=== PATIENT | female | born 1960 | race Caucasian/White ===

== ENCOUNTER 2017-05-31 14:49 | Inpatient (IN) ==
--- NOTE | 2017-05-31 15:41 | Emergency Department Note ---
Disposition Clinical Impression: Headache Qualifiers: Headache type: unspecified Headache chronicity pattern: unspecified pattern Intractability: not intractable Qualified Code(s): R51 - Headache TIA (transient ischemic attack) Qualifiers: Transient cerebral ischemia type: unspecified Qualified Code(s): G45.9 - Transient cerebral ischemic attack, unspecified Hypertension Qualifiers: Hypertension type: essential hypertension Qualified Code(s): I10 - Essential ( primary) hypertension Disposition: Admitted As Inpatient Condition: Fair Referrals: Murray Trevino MD [Family Provider] - NONE,PCP [Primary Care Provider] - Forms: ED Satisfaction Letter Time of Disposition: 17:10 Headache HPI - General Chief Complaint: ED Headache Stated Complaint: slurred speech/BECK Time Seen by Provider: 05/31/17 15:25 Source: patient Mode of arrival: wheelchair Limitations: no limitations Nursing Notes Reviewed: Yes Vital Signs Reviewed: Yes - History of Present Illness HPI Narrative: 57-year-old who states she wasn't feeling well this morning had some nausea. states she developed difficulty speaking and also had initially left upper extremity weakness which improved and then she had right upper extremity weakness. Right in the patient was getting in a car that went under the trees in the l sunlight had a strobe light effect and he gave her a migraine headache which she has had in the past. On arrival here her symptoms have improved. 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 Constitutional: Denies: fever, chills, weakness, weight change Eyes: Denies: eye pain, eye discharge, vision change ENT ED: Denies: ear pain, throat pain, dental pain, hearing loss, epistaxis, congestion, dysphagia Cardiovascular: Denies: chest pain, palpitations, dyspnea on exertion, edema, syncope Respiratory: Denies: cough, dyspnea, wheezes, hemoptysis, stridor Gastrointestinal: Denies: abdominal pain, nausea, vomiting, diarrhea, constipation, hematemesis, melena, hematochezia Genitourinary: Denies: dysuria, frequency, hematuria, discharge Musculoskeletal: Denies: back pain, neck pain, arthralgia, myalgia Integumentary: Denies: rash, abrasion, lesions Neurological: Reports: headache, weakness (Has improved), other (Slurred speech which has improved). Denies: numbness, paresthesias, confusion, abnormal gait, vertigo Psychiatric: Denies: anxiety, depression, suicidal thoughts, homicidal thoughts , auditory hallucinations, visual hallucinations Endocrine: Denies: fatigue Hematological/Lymphatic: Denies: easy bleeding, easy bruising Allergic/Immunologic: Denies: facial swelling, urticaria Headache PMH - Past Medical History Medical history: Reports: diabetes, hyperlipidemia, hypertension Psychiatric history: Reports: no psych history - Social History Smoking Status: Current every day smoker Alcohol use: Reports: rarely Drug use: Reports: none Physical Exam - General Limitations: no limitations General appearance: alert - Head Head exam: atraumatic, normocephalic, normal inspection - Eye Eye exam: Present: normal appearance, PERRL, EOMI - ENT ENT exam: normal exam, normal oropharynx, mucous membranes moist - Neck Neck exam: Present: normal inspection, full ROM, trachea midline - Chest Chest inspection: Present: normal inspection, symmetric chest wall rise - Respiratory Respiratory exam: Present: normal lung sounds bilaterally - Cardiovascular Cardiovascular exam: Present: regular rate, normal rhythm, normal heart sounds - Abdominal Exam Abdominal exam: Present: soft, Non-Tender. Absent: tenderness, distention, guarding, rebound, rigidity - Extremities Exam Extremities exam: Present: normal inspection, full ROM. Absent: tenderness, pedal edema - Expanded Lower Extremity Exam Neurovascular/Tendon exam: Absent: motor deficit, sensory deficit, tendon deficit Gait: observed and normal - Back Exam Back exam: Present: normal inspection, full ROM. Absent: tenderness - Neurological Exam Neurological exam: Present: alert, oriented X3 - Psychiatric Psychiatric exam: Present: normal affect, normal mood - Skin Skin exam: Present: warm, dry, intact, normal color Course - Reevaluation(s) Reevaluation #1: 57-year-old with a history of hypertension who developed slurred speech and arm weakness this morning which has resolved. Also complained of a headache. She was noted to have a diastolic initially 132 repeat was 125. Time: 17:07 - Consultations Consultation #1: Discussed with , we will shoot for blood pressure 160/100. Mental hospitalist. Time: 17:23 Consultation #2: Discussed with Dr. Padilla, admit. Time: 17:25 Vital Signs Temperature 97.4 F L 05/31/17 14:52 Pulse Rate 101 05/31/17 14:52 Respiratory Rate 22 05/31/17 14:52 Blood Pressure 190/125 05/31/17 14:52 O2 Sat by Pulse Oximetry 96 05/31/17 14:52 Temperature 97.4 F L 05/31/17 14:52 Pulse Rate 112 05/31/17 17:12 Respiratory Rate 20 05/31/17 17:12 Blood Pressure 196/105 05/31/17 17:12 O2 Sat by Pulse Oximetry 96 05/31/17 17:12 Oxygen Delivery Oxygen Delivery Room Air Headache - Lab Data Lab results reviewed: Yes I reviewed the patient's lab results. Result diagrams: 05/31/17 15:50 05/31/17 15:50 Lab Results 05/31/17 05/31/17 05/31/17 Range/Units 15:50 15:50 15:50 WBC 9.2 (4.3-11.1) K/mcL RBC 5.59 H (3.82-4.97) M/mcL Hgb 15.4 (11.5-15.4) g/dL Hct 43.8 (35.3-44.9) % MCV 78.4 L (83.0-100.0) fL MCH 27.5 L (28.0-33.3) pg MCHC 35.2 (31.6-35.5) g/dL RDW 13.1 (11.5-14.5) % Plt Count 207 (140-400) K/mcL MPV 10.2 (9.4-12.4) fL Immature Gran % 0.5 (0-4) % Seg Neutrophils % 79.5 % Lymphocytes % 13.1 % Monocytes % 4.6 % Eosinophils % 1.4 % Basophils % 0.9 % Neutrophils # 7.3 (1.6-8.9) K/mcL Lymphocytes # 1.2 (0.6-4.6) K/mcL Monocytes # 0.4 (0.0-1.3) K/mcL Eosinophils # 0.1 (0.0-0.6) K/mcL Basophils # 0.1 (0.0-0.2) K/mcL PT 10.9 (9.4-12.1) Seconds INR 1.0 APTT 29.6 (26.0-36.0) Seconds Sodium 135 L (136-145) mEq/L Potassium 3.6 (3.5-4.5) mEq/L Chloride 100 (98-109) mEq/L Carbon Dioxide 24 (19-29) mEq/L BUN 8 (7-20) mg/dL Creatinine 0.84 (0.57-1.11) mg/dL Est GFR ( Amer) > 60 (> 60) Est GFR (Non-Af Amer) > 60 (> 60) BUN/Creatinine Ratio 10 (6-26) Glucose 350 H (70-99) mg/dL Calculated Osmolality 292 (280-300) Calcium 10.0 (8.6-10.8) mg/dL Troponin I (0-0.03) ng/mL 05/31/17 Range/Units 15:50 WBC (4.3-11.1) K/mcL RBC (3.82-4.97) M/mcL Hgb (11.5-15.4) g/dL Hct (35.3-44.9) % MCV (83.0-100.0) fL MCH (28.0-33.3) pg MCHC (31.6-35.5) g/dL RDW (11.5-14.5) % Plt Count (140-400) K/mcL MPV (9.4-12.4) fL Immature Gran % (0-4) % Seg Neutrophils % % Lymphocytes % % Monocytes % % Eosinophils % % Basophils % % Neutrophils # (1.6-8.9) K/mcL Lymphocytes # (0.6-4.6) K/mcL Monocytes # (0.0-1.3) K/mcL Eosinophils # (0.0-0.6) K/mcL Basophils # (0.0-0.2) K/mcL PT (9.4-12.1) Seconds INR APTT (26.0-36.0) Seconds Sodium (136-145) mEq/L Potassium (3.5-4.5) mEq/L Chloride (98-109) mEq/L Carbon Dioxide (19-29) mEq/L BUN (7-20) mg/dL Creatinine (0.57-1.11) mg/dL Est GFR ( Amer) (> 60) Est GFR (Non-Af Amer) (> 60) BUN/Creatinine Ratio (6-26) Glucose (70-99) mg/dL Calculated Osmolality (280-300) Calcium (8.6-10.8) mg/dL Troponin I 0.01 (0-0.03) ng/mL - Radiology Data Radiology results reviewed: Yes I reviewed the patient's radiology results. Head CT 05/31/17 15:38 IMPRESSION: No acute intracranial abnormality. Diffuse atrophic changes with findings suggesting chronic microvascular ischemia D/ / Jesus Hamm MD / Jesus Hamm MD Interpreting Provider: Jesus Hamm MD - EKG Data EKG attestation: Yes I reviewed and interpreted this EKG. EKG shows normal: sinus rhythm Rate: normal Rhythm: NSR Interpretation: no acute changes Critical Care Time Critical Care Time: Yes Total Critical Care Time: 30 Attestation: The high probability of a clinically significant, sudden or life threatening deterioration of the [neurological, cardiovascular] system(s) required my full and direct attention, intervention and personal management. The aggregate critical care time was [30] minutes. This time is in addition to time spent performing reported procedures but includes the following: [x] Data Review and interpretation [x] Patient assessment and monitoring of vital signs [x] Documentation [x] Medication orders and management NIH Stroke Scale - Level of Consciousness LOC: Alert - LOC Questions LOC Questions: Answers both correctly - LOC Commands LOC Commands: Performs both correctly - Best Gaze Best Gaze: Normal - Visual Visual: No visual loss - Facial Palsy Facial Palsy: Normal - Motor Arms Motor Arm-Left: No drift for 10 seconds Motor Arm-Right: No drift for 10 seconds - Motor Legs Motor Leg-Left: No drift for 5 seconds Motor Leg-Right: No drift for 5 seconds - Limb Ataxia Limb Ataxia: Normal, No Ataxia - Sensory Sensory: Normal - Best Language Best Language: No aphasia - Dysarthria Dysarthria: Normal - Extinction and Inattention Extinction and Inattention: Normal - NIHSS Total Score NIHSS Total Score: 0
[2017-05-31 16:07] LABS: Basophils # 0.1 K/mcL (0.0-0.2); Basophils % 0.9 %; Eosinophils # 0.1 K/mcL (0.0-0.6); Eosinophils % 1.4 %; Hematocrit 43.8 % (35.3-44.9); Hemoglobin 15.4 g/dL (11.5-15.4); Immature Granulocytes % 0.5 % (0-4); Lymphocytes # 1.2 K/mcL (0.6-4.6); Lymphocytes % 13.1 %; Mean Corpuscular HGB Conc 35.2 g/dL (31.6-35.5); Mean Corpuscular Hemoglobin 27.5 pg (28.0-33.3); Mean Corpuscular Volume 78.4 fL (83.0-100.0); Mean Platelet Volume 10.2 fL (9.4-12.4); Monocytes # 0.4 K/mcL (0.0-1.3); Monocytes % 4.6 %; Neutrophils # 7.3 K/mcL (1.6-8.9); Platelet Count 207 K/mcL (140-400); Red Blood Count 5.59 M/mcL (3.82-4.97); Red Cell Distribution Width 13.1 % (11.5-14.5); Segmented Neutrophils % 79.5 %
[2017-05-31 16:12] LABS: Prothrombin Time 10.9 Seconds (9.4-12.1)
[2017-05-31 16:15] LABS: Activated Partial Thrombo Time 29.6 Seconds (26.0-36.0)
[2017-05-31 16:19] LABS: BUN/Creatinine Ratio 10 (6-26); Blood Urea Nitrogen 8 mg/dL (7-20); Carbon Dioxide 24 mEq/L (19-29); Chloride 100 mEq/L (98-109); Glucose 350 mg/dL (70-99); Osmolality,Calculated 292 (280-300); Potassium 3.6 mEq/L (3.5-4.5); Sodium 135 mEq/L (136-145); eGFR For African Americans > 60 (> 60); eGFR For Non-African Americans > 60 (> 60)
[2017-05-31] MEDS ORDERED: niCARdipine 40 MG/200 ML MLS IVC SCH ×2 (16:30→19:55)
[2017-05-31] MEDS ORDERED: Aspirin 81 MG TAB.CHEW PO STA (17:17)
[2017-05-31] MEDS ORDERED: Ondansetron 4 MG/2 ML VIAL IVP ONE (17:17)
[2017-05-31] MEDS ORDERED: Naloxone 0.4 MG/ML INJ IVP PRN (18:15)
[2017-05-31] MEDS ORDERED: Loratadine 10 MG TABLET PO PRN (18:18)
[2017-05-31] MEDS ORDERED: Dextrose Gel 15 GM PO PRN ×2 (19:53)
[2017-05-31] MEDS ORDERED: *HR* Dextrose 50 % in Water (Syg) 50 ML SYRINGE IVP PRN (19:53)
[2017-05-31] MEDS ORDERED: D5% in Water 1,000 ML IVC PRN (19:53)
[2017-05-31] MEDS ORDERED: amLODIPine 5 MG TABLET PO SCH (20:00)
--- NOTE | 2017-05-31 20:15 | Internal Med History&Physical ---
<Bc Butler - Last Filed: 05/31/17 23:47> Date of Encounter: 05/31/17 Time of Encounter: 20:10 Assessment and Plan (1) TIA (transient ischemic attack) Current visit: Yes Status: Acute I am admitting this patient for further observation due to hypertensive emergency, bilateral upper extremity weaknessSlurred speech and headache. No prior history of CVA or TIA. However due to her risk factors. Which include smoking, DM, HLD, HTN she needs further evaluation.The patient mental status remains slightly altered, she will not dissipate in the examination however she is oriented 3 Response to verbal stimulus. Differential diagnosis include TIA , CVA, hypertensive encephalopathy, complicated migraines. Symptoms are gradually improving, no longer has slurred speech, denies numbness and tingling , continues to be hypertensive But is improving with Cardene drip. Symptoms also improving with blood pressure control. Neurology consult with recommendations to continue to rule out CVA versus TIA. Additional recommendations include continuing SBP less than 160 MRI head and brain without contrast in the morning Carotid Dopplers, echocardiogram, neuro checks per protocol, NIHSS now ABG now due altered mental status Urinalysis now and urine tox screen now Continuous telemetry, continuous O2 monitoring Lipid panel in the morning, CBC, CMP in the morning Qualifiers: Transient cerebral ischemia type: unspecified Qualified Code(s): G45.9 - Transient cerebral ischemic attack, unspecified (2) Hypertensive emergency without congestive heart failure Current visit: Yes Status: Acute Has a history of hypertension. Not on any antihypertensives at home. Patient was admitted with hypertensive emergency. Systolic blood pressures initially greater than 200 on arrival. Cardiac injury was started in the emergency department. As of this time blood pressure is improved with systolic blood pressures of 150s. With the AMS, it is my suspicion that the patient may have had hypertensive encephalopathy however we will continue to rule out TIA and CVA. discontinue Cardene drip as the patient's blood pressure is improving Start Norvasc 5 mg by mouth first dose now then daily (3) Headache Current visit: Yes Status: Acute Continues to have a headache, but is improving with blood pressure control. See plan above Qualifiers: Headache type: unspecified Headache chronicity pattern: unspecified pattern Intractability: not intractable Qualified Code(s): R51 - Headache (4) Diabetes Current visit: Yes Status: Acute Patient is a type II diabetic. Reports that she is not on any insulin or oral hypoglycemic agents and is well-controlled with diet. However today's metabolic panel reveals a blood glucose of 350. 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 Rodriguez is a 57 year old female with a PMH of DM, HLD, HTN. She presents today with a chief complaint of left upper cavity weakness, slurred speech and headache. Denies having any prior strokes. The patient reports that she was not feeling well this morning, she had some nausea. She reported that she was out running errands and she was getting out of the car sunlight through the trees had a strobe light effect and gave her a migraine headache. She reports past history of migraines. reports that she began feeling nauseous and requested to go home. Once she arrived to the house, while still on the car, in the car she was noted to have slurred speech BUE numbness and tingling. When she attempted to get a car she began to puke and fell down. Symptoms began to gradually improve by the time of arrival to the emergency department. There is some concern for a TIA, neurology was consulted with recommendations of keeping blood pressure less than 160 and further rule out TIA. CT of head negative for acute intracranial abnormalities Past Med Surg Social Fam HX - Past Medical History Medical history: diabetes, hyperlipidemia, hypertension Psychiatric history: no psych history - Social History Smoking Status: Current every day smoker Smokeless Tobacco Status: No Alcohol use: rarely Drug use: none - Family History Mother Hx Family Endocrine Disorder: Yes (Diabetes) Internal Medicine - H&P: Meds Cyanocobalamin (Vitamin B-12) [Vitamin B-12] 500 mcg PO DAILY 05/31/17 [History] Ibuprofen [Motrin] 400 mg PO Q6H PRN 05/31/17 [History] Loratadine [Allergy Relief] 10 mg PO DAILY PRN 05/31/17 [History] Magnesium Oxide [Magnesium] 400 mg PO DAILY 05/31/17 [History] Potassium 99 mg PO TID PRN 05/31/17 [History] 3 Allergy/AdvReac Type Severity Reaction Status Date / Time Penicillins [PCN] Allergy Vomiting Verified 05/31/17 16:38 Tetracycline Allergy Vomiting Verified 05/31/17 16:38 tramadol AdvReac Headache Verified 05/31/17 16:38 All Systems PM: A 10-system review of systems was performed and is negative for pertinent findings except as documented above in the HPI. - Constitutional Constitutional: fatigue, falls, weakness, no chills, no excessive sweating, no fever(s) - Cardiovascular Cardiovascular ROS IM: no chest pain, no diaphoresis, no dyspnea, no edema, no lightheadedness, no palpitations, no syncope - Respiratory Respiratory: no cough, no dyspnea, no wheezing, no excessive phlegm production - Gastrointestinal Gastrointestinal: no abdominal pain, no diarrhea, no hematemesis, no hematochezia, no melena, no nausea, no vomiting - Genitourinary Genitourinary: no change in urinary stream, no dysuria, no flank pain, no hematuria - Musculoskeletal Musculoskeletal ROS IM: numbness (Has subsided since arrival), tingling (Has subsided since arrival), no muscle weakness - Integumentary Integumentary IM: no rash, no unusual bruising - Neurological Neurological ROS: abnormal speech (Has subsided since arrival), headache(s), numbness, tingling, weakness, no confusion, no dizziness, no focal weakness, no frequent falls - Constitutional Vitals: Temp Pulse Resp BP Pulse Ox 97.4 F L 108 18 156/92 98 05/31/17 14:52 05/31/17 17:35 05/31/17 17:35 05/31/17 17:35 05/31/17 17:35 General appearance: Present: A&O X 3, no acute distress, answers questions appropriately Exam: Patient appears to be lethargic, alert and oriented 3 able to answer questions appropriately. However, will not cooperate with examination. - Head Head exam: Present: atraumatic, normocephalic - Eye Eye exam: Present: EOMI, PERRL, conjuntiva pink, sclera anicteric Pupils: Present: PERRL - Neck Neck exam general surgery: Present: supple, trachea midline. Absent: lymphadenopathy - Respiratory Respiratory exam: Present: decreased breath sounds, CTAB, tachypnea. Absent: accessory muscle use, rales, respiratory distress, rhonchi, wheezes - Cardiovascular Cardiovascular exam: Present: RRR, +S1, +S2, tachycardia. Absent: diastolic murmur, gallop, JVD, rubs, systolic murmur - GI/Abdominal GI/Abdominal exam: Present: normal bowel sounds, soft, no peritoneal signs. Absent: distended, tenderness - Extremities Exam Extremities exam: Present: warm, radial pulses palpable and symmetrical. Absent : calf tenderness, cyanotic, pedal edema - Neurological Exam Neurological exam: Present: alert, oriented X3. Absent: no focal deficits, facial droop, speech deficit Additional comments: Would not cooperate with neurological exam; was able to witness the patient uses bilateral upper and lower extremities, did not appear to have focal deficits. - Psychiatric Psychiatric exam: Present: flat affect - Skin Skin exam: Present: dry, intact Internal Med - H&P Results - Labs CBC & Chem 7: 05/31/17 15:50 05/31/17 15:50 - EKG Data -: EKG Interpreted by Myself EKG shows normal: sinus rhythm Rate: normal - EKG Data EKG comments: 05/31/17 20:21 NSR - Diagnostic Studies Chest x-ray Status: image reviewed by me Additional comments: Mild bibasilar atelectasis noted to pulmonary process CT scan - head Status: image reviewed by me Additional comments: No acute intracranial abnormalities <Richard Cherry - Last Filed: 06/01/17 01:18> Date of Encounter: 06/01/17 Internal Medicine - H&P: HPI History of present illness: Ms. Rodriguez is a 57 year old female All Systems PM: A 10-system review of systems was performed and is negative for pertinent findings except as documented above in the HPI. - Constitutional Vitals: Temp Pulse Resp BP Pulse Ox 99.7 F H 124 22 137/88 96 06/01/17 00:57 05/31/17 23:54 05/31/17 23:54 05/31/17 23:54 05/31/17 23:54 Internal Med - H&P Results - Labs CBC & Chem 7: 06/01/17 00:45 05/31/17 15:50 Labs: Short CBC 06/01/17 Range/Units 00:45 WBC 14.9 H D (4.3-11.1) K/mcL Hgb 15.2 (11.5-15.4) g/dL Hct 43.4 (35.3-44.9) % Plt Count 254 (140-400) K/mcL Neutrophils # 13.5 H (1.6-8.9) K/mcL Cardiac Enzymes 05/31/17 Range/Units 22:13 Troponin I 0.01 (0-0.03) ng/mL - ABG Interpretation ABG results: 05/31/17 22:09 ABG pH 7.45 ABG pCO2 32 L ABG pO2 65 L ABG HCO3 22 ABG Total CO2 23 ABG O2 Saturation 94 L ABG Base Excess -1 - Attending Attestation I saw and examined this patient with DAXA Yancey on 05/31. HTN emergency with acute encephalopathy, gait instability, confusion Uncooperative with neuro exam but pupils are equal and reactive, speech is normal, moves all extremities, very ataxic Fall precautions/Brain MRI/Neuro eval, control blood pressure Agree with rest of documentation by DAXA Yancey
[2017-05-31] MEDS ORDERED: Insulin LISPRO 300 UNITS/3 ML VIAL SQ SCH (21:00)
[2017-05-31] MEDS ORDERED: *HR* Promethazine 25 MG/ML VIAL IVP ONE (21:46)
[2017-05-31] MEDS ORDERED: Acetaminophen 325 MG TABLET PO PRN (21:47)
[2017-05-31 22:14] LABS: ABG Base Excess -1 mEq/L (-2 to 3); ABG HCO3 22 mEq/L (21-27); ABG Oxygen Saturation 94 % (95-98); ABG PCO2 32 mmHg (35-45); ABG PH 7.45 pH Units (7.32-7.45); ABG PO2 65 mmHg (85-104); ABG TCO2 23 mEq/L (20-26)
[2017-05-31] MEDS: 0.9 % Sodium Chloride 1,000 ML IVC SCH (22:15)
[2017-05-31] MEDS: amLODIPine 5 MG TABLET PO SCH (22:15)
[2017-06-01 01:02] LABS: Basophils # 0.1 K/mcL (0.0-0.2); Basophils % 0.4 %; Eosinophils % 0.1 %; Hematocrit 43.4 % (35.3-44.9); Hemoglobin 15.2 g/dL (11.5-15.4); Immature Granulocytes % 0.7 % (0-4); Immature Platelets 3.9 % (1.1-6.1); Lymphocytes # 0.9 K/mcL (0.6-4.6); Lymphocytes % 6.2 %; Mean Corpuscular Hemoglobin 27.4 pg (28.0-33.3); Mean Corpuscular Volume 78.2 fL (83.0-100.0); Mean Platelet Volume 10.3 fL (9.4-12.4); Monocytes # 0.3 K/mcL (0.0-1.3); Monocytes % 1.9 %; Neutrophils # 13.5 K/mcL (1.6-8.9); Platelet Count 254 K/mcL (140-400); Red Blood Count 5.55 M/mcL (3.82-4.97); Red Cell Distribution Width 13.1 % (11.5-14.5); Segmented Neutrophils % 90.7 %
[2017-06-01 01:22] LABS: Alanine Aminotransferase 22 Units/L (0-55); Albumin/Globulin Ratio 1.3 (1.1-2.2); Alkaline Phosphatase 145 Units/L (38-126); Aspartate Amino Transferase 17 Units/L (5-34); BUN/Creatinine Ratio 9 (6-26); Bilirubin,Total 0.8 mg/dL (0.2-1.2); Blood Urea Nitrogen 9 mg/dL (7-20); Calcium 9.7 mg/dL (8.6-10.8); Carbon Dioxide 20 mEq/L (19-29); Chloride 101 mEq/L (98-109); Cholesterol 226 mg/dL (< 200); Globulin 3.1 g/dL (2.4-3.5); Glucose 461 mg/dL (70-99); HDL Cholesterol 45 mg/dL (40-59); LDL Cholesterol,Calculated 160 mg/dL (0-99); Osmolality,Calculated 303 (280-300); Potassium 3.7 mEq/L (3.5-4.5); Sodium 137 mEq/L (136-145); Total Protein 7.1 g/dL (6.0-8.3); Triglycerides 105 mg/dL (< 150); eGFR For African Americans > 60 (> 60); eGFR For Non-African Americans 56 (> 60)
[2017-06-01 02:31] LABS: Amphetamine Screen,Urine Negative ng/mL (Cutoff=1000); Barbiturate Screen,Urine Negative ng/mL (Cutoff=200); Benzodiazepines Screen,Urine Negative ng/mL (Cutoff=200); Cannabinoid Screen,Urine Negative ng/mL (Cutoff = 50); Cocaine Screen,Urine Negative ng/mL (Cutoff= 300); Opiate Screen,Urine Negative ng/mL (Cutoff=300); Phencyclidine Screen,Urine Negative ng/mL (Cutoff=25)
[2017-06-01 02:34] LABS: Bilirubin,Urine Negative (Negative); Blood,Urine Small (Negative); Clarity,Urine Clear (Clear); Color,Urine Yellow (Yellow); Glucose,Urine (UA) >=1000 mg/dL (Normal); Ketones,Urine 80 mg/dL (Negative); Leukocyte Esterase,Urine Negative (Negative); Nitrite,Urine Negative (Negative); Protein,Urine 30 mg/dL (Neg-Trace); Specific Gravity,Urine 1.027 (1.010-1.025); Urobilinogen,Urine Normal (Normal)
[2017-06-01 02:36] LABS: Bacteria,Urine Many per hpf (None-Few); Hyaline Casts,Urine None Seen per lpf (None-Few); Squamous Epithelial Cell,Urine Few per lpf (None-Few)
[2017-06-01] MEDS ORDERED: niCARdipine 40 MG/200 ML MLS IVC ONE (03:37)
[2017-06-01] MEDS: niCARdipine 40 MG/200 ML MLS IVC SCH ×2 (03:41→11:35)
[2017-06-01] MEDS ORDERED: Insulin Human Regular 10 UNIT in 0.9 % Sodium Chloride 10 ML IV ONE (04:52)
[2017-06-01] MEDS ORDERED: Insulin Human Regular 100 UNIT in 0.9 % Sodium Chloride 100 ML IVC SCH ×2 (05:00→11:15)
[2017-06-01 05:39] LABS: Hemoglobin A1C 11.2 %
[2017-06-01] MEDS ORDERED: 0.9 % Sodium Chloride w KCl 20 MEQ/1,000 ML MLS IVC SCH (05:45)
[2017-06-01] MEDS ORDERED: Vancomycin 1,750 MG in D5% in Water 250 ML IVPB SCH (06:00)
[2017-06-01] MEDS: Vancomycin 1,500 MG in D5% in Water 250 ML IVPB SCH ×2 (06:16→19:35)
[2017-06-01] MEDS: cefTRIAXone 2,000 MG in Water for inj. (sterile) 20 ML IVP SCH ×2 (06:17→17:38)
[2017-06-01] MEDS: *HR* Enoxaparin 40 MG/0.4 ML SYRINGE SQ SCH (06:38)
[2017-06-01] MEDS ORDERED: Insulin LISPRO 300 UNITS/3 ML VIAL SQ SCH (07:30)
[2017-06-01] MEDS: Acyclovir 600 MG in D5% in Water 100 ML IVPB SCH ×2 (08:51→18:33)
--- NOTE | 2017-06-01 08:56 | Internal Med Progress Note ---
<Oral Ordoñez - Last Filed: 06/01/17 13:30> Date of Encounter: 06/01/17 Time of Encounter: 08:56 - Assessment and plan (1) Altered mental status Current Visit: Yes Status: Acute Assessment and plan: 57-year-old female admitted with altered mental status. Initially concern for TIA versus stroke, CT of the brain demonstrates diffuse atrophy but no findings of acute ischemia or hemorrhagic stroke. Urine drug screen negative, Tylenol level negative, TSH 0.279. WBC count 14.9, patient tachycardic, increased respiratory rate, altered mental status - Current source unknown, concern for meningitis Patient seen by neurology, recommended lumbar puncture, EEG and MRI of the brain. Plan: - Lumbar puncture- obtain cultures, viral culture including HSV - MRI of the brain - Order ammonia level, salicylate, T4 T3 - EEG - Continue acyclovir, vancomycin and ceftriaxone Qualifiers: Altered mental status type: somnolence Qualified Code(s): R40.0 - Somnolence (2) Hyperosmolar syndrome Current Visit: Yes Status: Acute Assessment and plan: Patient admitted with hyperglycemia, anion gap acidosis, ketonuria and glucosuria. Patient was started on insulin drip with steady improvement in her glucose. - Hemoglobin A1c of 11 - Review of patient's outpatient medical records demonstrates that she had a A1c of roughly 10.6 in 2016. - Currently not taking any medications for her diabetes at home. Plan: - Continue insulin drip - Half-normal saline plus potassium - Stat BMP - Monitor glucose hourly (3) Hypertension Current Visit: Yes Status: Acute Assessment and plan: Patient admitted with blood pressures elevated and altered mental status with blood pressures as high of 200/143 blood pressures improved to 155/87 on nicardipine drip. - Patient has a history of hypertension but was not taking any blood pressure medications at home. Plan: - Continue amlodipine 5 mg by mouth daily - Continue to wean nicardipine drip as tolerated. Qualifiers: Hypertension type: essential hypertension Qualified Code(s): I10 - Essential (primary) hypertension - Subjective Interval history: Patient seen and evaluated at patient bedside. She is not responsive to questions does not follow commands but does respond to pain stimuli. Patient was seen with Dr. Cotter from neurology and an LP was recommended. - Constitutional Vitals: Temp Pulse Resp BP Pulse Ox 99 F 129 20 145/96 95 06/01/17 08:00 06/01/17 08:00 06/01/17 08:00 06/01/17 08:00 06/01/17 08:00 General appearance: Present: A&O X 3, no acute distress, answers questions appropriately - Head Head exam: Present: atraumatic, normocephalic - Eye Eye exam: Present: PERRL, conjuntiva pink, sclera anicteric Pupils: Present: PERRL - ENT ENT exam: Present: mucous membranes moist - Neck Neck exam general surgery: Present: supple, trachea midline. Absent: lymphadenopathy - Respiratory Respiratory exam: Present: CTAB. Absent: accessory muscle use, rales, rhonchi, wheezes - Cardiovascular Cardiovascular exam: Present: RRR, +S1, +S2. Absent: diastolic murmur, gallop, rubs, systolic murmur - GI/Abdominal GI/Abdominal exam: Present: normal bowel sounds, soft, no peritoneal signs. Absent: distended, tenderness - Extremities Exam Extremities exam: Present: normal inspection, radial pulses palpable and symmetrical. Absent: pedal edema, tenderness - Neurological Exam Neurological exam: Present: altered, reflexes normal Additional comments: Patient retracts pain in upper and lower extremities, negative Babinski bilateral. Patient not responding to verbal commands. - Skin Skin exam: Present: dry, intact Internal Medicine: Result - Labs CBC & Chem 7: 06/01/17 00:45 06/01/17 12:57 Labs: Short CBC 06/01/17 Range/Units 00:45 WBC 14.9 H D (4.3-11.1) K/mcL Hgb 15.2 (11.5-15.4) g/dL Hct 43.4 (35.3-44.9) % Plt Count 254 (140-400) K/mcL Neutrophils # 13.5 H (1.6-8.9) K/mcL BMP 06/01/17 00:45 Sodium 137 Potassium 3.7 Chloride 101 Carbon Dioxide 20 BUN 9 Creatinine 1.02 Glucose 461 H Calcium 9.7 Cardiac Enzymes 05/31/17 06/01/17 Range/Units 22:13 00:45 Troponin I 0.01 0.01 (0-0.03) ng/mL Liver Function 06/01/17 Range/Units 00:45 Total Bilirubin 0.8 (0.2-1.2) mg/dL AST 17 (5-34) Units/L ALT 22 (0-55) Units/L Alkaline Phosphatase 145 H (38-126) Units/L Albumin 4.0 (3.5-5.0) g/dL Urine 05/31/17 Range/Units 23:48 Urine Color Yellow (Yellow) Urine Clarity Clear (Clear) Urine pH 6.0 (5.0-8.0) pH Units Ur Specific [place] 1.027 H (1.010-1.025) Urine Protein 30 H (Neg-Trace) mg/dL Urine Glucose (UA) >=1000 H (Normal) mg/dL - ABG Interpretation ABG results: ABG ABG pH 7.45 pH Units (7.32-7.45) 05/31/17 22:09 ABG pCO2 32 mmHg (35-45) L 05/31/17 22:09 ABG pO2 65 mmHg (85-104) L 05/31/17 22:09 ABG O2 Saturation 94 % (95-98) L 05/31/17 22:09 PT/INR, D-dimer PT 10.9 Seconds (9.4-12.1) 05/31/17 15:50 Consult Discharge Plan - Plan Referrals: NONE,PCP [Primary Care Provider] - Murray Trevino MD [Family Provider] - <Ángela Yuen - Last Filed: 06/01/17 17:40> Date of Encounter: 06/01/17 - Constitutional Vitals: Temp Pulse Resp BP Pulse Ox 100.8 F H 112 22 153/92 95 06/01/17 16:07 06/01/17 16:07 06/01/17 16:07 06/01/17 16:07 06/01/17 16:07 Internal Medicine: Result - Labs CBC & Chem 7: 06/01/17 00:45 06/01/17 12:57 Labs: Short CBC 06/01/17 Range/Units 00:45 WBC 14.9 H D (4.3-11.1) K/mcL Hgb 15.2 (11.5-15.4) g/dL Hct 43.4 (35.3-44.9) % Plt Count 254 (140-400) K/mcL Neutrophils # 13.5 H (1.6-8.9) K/mcL BMP 06/01/17 06/01/17 06/01/17 00:45 09:33 12:57 Sodium 137 140 140 Potassium 3.7 3.3 L 3.3 L Chloride 101 107 109 Carbon Dioxide 20 18 L 20 BUN 9 14 16 Creatinine 1.02 1.15 H 0.96 Glucose 461 H 297 H 163 H Calcium 9.7 9.4 9.1 Cardiac Enzymes 05/31/17 06/01/17 Range/Units 22:13 00:45 Troponin I 0.01 0.01 (0-0.03) ng/mL Liver Function 06/01/17 Range/Units 00:45 Total Bilirubin 0.8 (0.2-1.2) mg/dL AST 17 (5-34) Units/L ALT 22 (0-55) Units/L Alkaline Phosphatase 145 H (38-126) Units/L Albumin 4.0 (3.5-5.0) g/dL Urine 05/31/17 Range/Units 23:48 Urine Color Yellow (Yellow) Urine Clarity Clear (Clear) Urine pH 6.0 (5.0-8.0) pH Units Ur Specific [place] 1.027 H (1.010-1.025) Urine Protein 30 H (Neg-Trace) mg/dL Urine Glucose (UA) >=1000 H (Normal) mg/dL - ABG Interpretation ABG results: ABG ABG pH 7.45 pH Units (7.32-7.45) 05/31/17 22:09 ABG pCO2 32 mmHg (35-45) L 05/31/17 22:09 ABG pO2 65 mmHg (85-104) L 05/31/17 22:09 ABG O2 Saturation 94 % (95-98) L 05/31/17 22:09 PT/INR, D-dimer PT 10.9 Seconds (9.4-12.1) 05/31/17 15:50 - Impressions Impressions Echocardiogram 06/01/17 18:11 Impressions: LVEF 70%. Normal LV chamber size, wall thickness and function. Mild left ventricular diastolic dysfunction. Normal right ventricular structure and function. No evidence of a PFO with agitated saline contrast. Mild aortic regurgitation. No evidence of pulmonary hypertension. Left Ventricular Wall Motion: Rest Echo Findings All wall segments showed normal motion. Findings: Study Quality * Technically adequate exam. ECG Findings * Sinus tachycardia. Left Ventricle * LVEF 70%. * Normal LV chamber size, wall thickness and function. * Mild left ventricular diastolic dysfunction. Right Ventricle * Normal right ventricular structure and function. Left Atrium * Mildly dilated left atrium. Right Atrium * Normal right atrial size. Interatrial Septum * No evidence of a PFO with agitated saline contrast. Aortic Valve * Aortic valve not well visualized. * No aortic stenosis. * Mild aortic regurgitation. Mitral Valve * Normal mitral valve structure and function. * No mitral stenosis. * No mitral regurgitation. Tricuspid Valve * Normal tricuspid valve structure and function. * Trace tricuspid regurgitation. * No evidence of pulmonary hypertension. Pulmonic Valve * Pulmonic valve is not well visualized. * No pulmonic regurgitation. Aorta * Normally sized aortic root. Pericardium * The pericardium appears normal. IVC * Normal IVC dimensions and inspiratory collapse. Pulmonary Artery * Normal visualized portions of the main pulmonary artery. - Attending Attestation Patient is a 57y/o female admitted for acute metabolic encephalopathy, HTN emergency, DM, HHS, sepsis of unknown etiology. Her blood glucose is better controlled, off insulin drip. Mental status remains altered, neurology on board. Unable to get lumbar puncture today due to patient's agitated state, interventional radiology to attempt in a.m. Continue empiric antibiotics (acyclovir, ceftriaxone, vancomycin). Awaiting MRI. Remains hypertensive, started Lopressor 5 mg IV every 6, as she is not able to take by mouth intake at this time due to altered mental status. She is arousable to tactile stimuli, however is refusing by mouth intake. Added hydralazine 10 mg IV every 6 hours when necessary SBP greater than 150. Patient noted to be not on any antihyperglycemic agents, and noted to have hemoglobin A1c greater than 11. Started on Levemir 25 units subcutaneous daily , with medium dose sliding scale insulin algorithm, Accu-Cheks every 6 hours. We will continue to closely monitor, repeat blood cultures if patient becomes febrile. Patient was independently seen and examined. Case was discussed with resident physician Oral Ordoñez, I agree with his documented findings, assessment, and plan, except as listed above.
[2017-06-01] MEDS: amLODIPine 5 MG TABLET PO SCH (09:20)
[2017-06-01] MEDS: Magnesium Oxide 400 MG TABLET PO SCH (09:20)
[2017-06-01] MEDS: Cyanocobalamin (B-12) 1,000 MCG TABLET PO SCH (09:21)
[2017-06-01 09:54] LABS: Calcium 9.4 mg/dL (8.6-10.8); Potassium 3.3 mEq/L (3.5-4.5)
[2017-06-01 10:32] LABS: Triiodothyronine (T3) Free 2.37 pg/mL (1.71-3.71)
[2017-06-01] MEDS ORDERED: Lidocaine -MPF 2% 5 ML VIAL ONE (10:38)
--- NOTE | 2017-06-01 11:06 | Procedure Note ---
Date of procedure: 06/01/17 Pre-op diagnosis: Suspected meningitis Post-op diagnosis: same Procedure: Lumbar Puncture Date: 06/01/2017 Time: 1015 Indication: Altered Mental Status Resident: Oral Ordoñez DO Attending: Dr. Hugh Canas A time-out was completed verifying correct patient, procedure, site, positioning , and special equipment if applicable. The patient was placed in the Right lateral decubitus position in a semi- position with help from the nursing staff. The area was cleansed and draped in usual sterile fashion. 2% lidocaine was used anesthetize the surrounding skin area. A <20-gauge 3.5-inch> spinal needle was attempted in the L3-L4 and L4-L5 interspace. Unable to obtain CSF fluid on procedure attempt. Consult was placed to have the procedure done in IR. Dr. Hugh Canas was present for the entire procedure Estimated Blood Loss: 0ml The patient tolerated the procedure well and there were no complications. Anesthesia: local Condition: stable Disposition: PACU
[2017-06-01] MEDS ORDERED: D5% in 0.45% NACL w KCl 20 MEQ/1,000 ML MLS IVC PRN (11:14)
[2017-06-01] MEDS ORDERED: Potassium Chloride 40 MEQ, Lidocaine 1% 2 ML in D5% in Water 500 ML IVPB ONE (11:40)
[2017-06-01] MEDS ORDERED: *HR* Metoprolol 5 MG/5 ML VIAL IVP SCH ×2 (12:00→18:00)
[2017-06-01] MEDS ORDERED: *HR* Metoprolol 5 MG/5 ML VIAL IVP ONE ×2 (12:39→12:58)
[2017-06-01 13:15] LABS: BUN/Creatinine Ratio 17 (6-26); Blood Urea Nitrogen 16 mg/dL (7-20); Calcium 9.1 mg/dL (8.6-10.8); Carbon Dioxide 20 mEq/L (19-29); Chloride 109 mEq/L (98-109); Glucose 163 mg/dL (70-99); Osmolality,Calculated 295 (280-300); Potassium 3.3 mEq/L (3.5-4.5); Sodium 140 mEq/L (136-145); eGFR For African Americans > 60 (> 60); eGFR For Non-African Americans > 60 (> 60)
[2017-06-01] MEDS ORDERED: D5% in 0.45% NACL 1,000 ML IVC SCH (15:15)
--- NOTE | 2017-06-01 15:24 | Neurology - Consult Note ---
Date of Encounter: 06/01/17 Time of Encounter: 07:40 Assessment and Plan (1) Altered mental status Current Visit: Yes Status: Acute This patient was admitted earlier with hypertensive urgency along with hyperglycemia with a concern of a TIA and stroke but at the time of admission she did not have any significant mental status changes as she is having now. CT scan of the head was negative for any bleed or stroke At the moment she is noncommunicative though she is awake and able to localize noxious stimuli without any lateralizing sign of a stroke and particularly no focal motor weakness as she is able to localize and withdraws equally without any abnormal reflexes. Considering her current condition does make me wonder that perhaps maybe psychological in nature but before that we do need to exclude any organic causes. Though one possibility of the acute mental status changes in someone with a history of multiple risk factors is a brainstem stroke but usually it is associated with changes in the brain stem reflexes and at the moment her BRAINSTEM reflexes are intact Also need to exclude any infectious and metabolic abnormality perhaps we may need to proceed with a spinal tap to make sure there is no underlying [employer] infection she is already being covered with broad-spectrum antibiotics as well as antiviral agents we may continue. I will get an EEG to rule out any nonconvulsive status. Continue to treat her hyperosmolar state. Fluids and insulin as per recommended by medicine team. We will follow the patient with you Qualifiers: Altered mental status type: somnolence Qualified Code(s): R40.0 - Somnolence (2) Hypertensive emergency without congestive heart failure Current Visit: Yes Status: Acute (3) Hyperosmolar syndrome Current Visit: Yes Status: Acute History of Present Illness HPI: Ms. Rodriguez is a 57 year old female with PMH of DM, HTN. admitted via ER for left extremity weakness, slurred speech and headache at the same time her Blood pressure noted to be elevated significantly, as per records she was not feeling well this morning, she had some nausea. she had some slurred speech BUE numbness and tingling. When she attempted to get a car she began to vomit and fell down. Symptoms began to gradually improve by the time of arrival to the emergency department. There is some concern for a TIA, neurology was consulted with recommendations of keeping blood pressure less than 160 and further rule out TIA. CT of head negative for acute intracranial abnormalities This morning patient noted to be not responding though she is awake but not opened eyes and not having any conversation laying in the bed without any focal motor weakness blood pressure and blood sugars continued to be elevated Past Med Surg Social Fam HX - Past Medical History Medical history: diabetes, hyperlipidemia, hypertension Psychiatric history: no psych history - Social History Smoking Status: Current every day smoker Smokeless Tobacco Status: No Alcohol use: rarely Drug use: none - Family History Mother Hx Family Endocrine Disorder: Yes (Diabetes) Medications and Allergies Cyanocobalamin (Vitamin B-12) [Vitamin B-12] 500 mcg PO DAILY 05/31/17 [History] Ibuprofen [Motrin] 400 mg PO Q6H PRN 05/31/17 [History] Loratadine [Allergy Relief] 10 mg PO DAILY PRN 05/31/17 [History] Magnesium Oxide [Magnesium] 400 mg PO DAILY 05/31/17 [History] Potassium 99 mg PO TID PRN 05/31/17 [History] 3 Allergy/AdvReac Type Severity Reaction Status Date / Time Penicillins [PCN] Allergy Vomiting Verified 05/31/17 16:38 Tetracycline Allergy Vomiting Verified 05/31/17 16:38 tramadol AdvReac Headache Verified 05/31/17 16:38 ROS unobtainable: due to mental status All Systems: A 10-system review of systems was performed and is negative for pertinent findings except as documented above in the HPI. Physical Examination - Vital Signs Vital Signs: Initial Vital Signs Temp Pulse Resp BP Pulse Ox 97.4 F L 101 22 190/125 96 05/31/17 14:52 05/31/17 14:52 05/31/17 14:52 05/31/17 14:52 05/31/17 14:52 - Constitutional General appearance: comfortable, other (On neurological examination, patient is unresponsive to any verbal stimuli she seems to responding to the deep pain but not communicating she did not open the eyes though she did withdrawal to the deep pain. Pupils are equal and reactive to light, no facial asymmetry noted. She would resist opening of the eyes, able to localize the pain and withdrawals all 4 extremities equally, reflexes are symmetrical and downgoing toes bilaterally) - Neurologic Reflexes: Biceps: 1+, Triceps: 1+, Brachioradialis: 1+, Patella: 1+, Achilles: 1 + Mental Status Examination: does not follow commands, localizes noxious stimulation Cranial nerve examination: PERRL, corneal reflexes brisk symmetrically, no facial asymmetry is present Results - Laboratory Findings CBC and BMP: 06/01/17 00:45 06/01/17 12:57 Abnormal lab findings: Abnormal lab results WBC 14.9 K/mcL (4.3-11.1) H D 06/01/17 00:45 RBC 5.55 M/mcL (3.82-4.97) H 06/01/17 00:45 MCV 78.2 fL (83.0-100.0) L 06/01/17 00:45 MCH 27.4 pg (28.0-33.3) L 06/01/17 00:45 Neutrophils # 13.5 K/mcL (1.6-8.9) H 06/01/17 00:45 ABG pCO2 32 mmHg (35-45) L 05/31/17 22:09 ABG pO2 65 mmHg (85-104) L 05/31/17 22:09 ABG O2 Saturation 94 % (95-98) L 05/31/17 22:09 Potassium 3.3 mEq/L (3.5-4.5) L 06/01/17 12:57 Glucose 163 mg/dL (70-99) H 06/01/17 12:57 POC Glucose 379 (58-89) H 06/01/17 04:35 Hemoglobin A1c 11.2 % (-5.6) H 06/01/17 05:09 Alkaline Phosphatase 145 Units/L (38-126) H 06/01/17 00:45 Cholesterol 226 mg/dL (< 200) H 06/01/17 00:45 LDL Cholesterol, Calc 160 mg/dL (0-99) H 06/01/17 00:45 Cholesterol/HDL Ratio 5.0 (0-4.9) H 06/01/17 00:45 TSH 0.279 mcIU/mL (0.350-4.840) L 06/01/17 05:09 Ur Specific [place] 1.027 (1.010-1.025) H 05/31/17 23:48 Urine Protein 30 mg/dL (Neg-Trace) H 05/31/17 23:48 Urine Glucose (UA) >=1000 mg/dL (Normal) H 05/31/17 23:48 Urine Ketones 80 mg/dL (Negative) H 05/31/17 23:48 Urine Blood Small (Negative) H 05/31/17 23:48 Urine Microscopic RBC 3-5 per hpf (0-3) H 05/31/17 23:48 Urine Microscopic WBC 5-15 per hpf (0-3) H 05/31/17 23:48 Urine Bacteria Many per hpf (None-Few) H 05/31/17 23:48 Salicylates < 5.0 mg/dL (15-30) L 06/01/17 09:33 - Diagnostic Findings Additional findings: CT scan of the head was negative Consult Discharge Plan - Plan Referrals: Murray Trevino MD [Family Provider] - NONE,PCP [Primary Care Provider] -
[2017-06-01] MEDS ORDERED: D5% in 0.45% NACL 1,000 ML IVC ONE (16:06)
[2017-06-01] MEDS: *HR* Metoprolol 5 MG/5 ML VIAL IVP SCH (16:54)
[2017-06-01] MEDS: Insulin DETEMIR 100 UNIT/ML X5UNITS SQ SCH (16:54)
[2017-06-01] MEDS: Pantoprazole 40 MG VIAL IVP SCH (17:38)
[2017-06-01] MEDS: Insulin LISPRO 300 UNITS/3 ML VIAL SQ SCH (18:46)
[2017-06-01] MEDS ORDERED: *HR* LORazepam 2 MG/ML VIAL IVP PRN (20:01)
[2017-06-01] MEDS ORDERED: Acetaminophen 650 MG RECTAL SUPP RC PRN (20:02)
--- NOTE | 2017-06-01 20:39 | EEG/EMG/Oth Biometrics Report ---
EEG Procedure Report Date of procedure: 06/01/17 EEG Procedure: Routine EEG Procedure Note: Routine 18-channel digital EEG was obtained to rule out any seizure activity or focal abnormalities. FINDINGS: Background rhythm during awake stage shows well-organized, well- developed, average voltage 8 to 9 hertz alpha activity in the posterior regions. It blocks with eye opening and it is bilaterally synchronous and symmetrical. No [id number] discharges or any lateralizing abnormalities are seen. Photic stimulation did not produce any abnormalities. Hyperventilation was not performed , No abnormalities were found during the procedure. Intermittent EMG artifacts were seen. at the same time intermittent slowing slowing noted along with electrode artifact, Stage II sleep was not achieved. IMPRESSION: This study is with in broad range of normal limits with significant electrode artifact, no obvious epileptiform discharges or any other paroxysmal activities or focal abnormalities seen. Clinical correlation is suggested
[2017-06-01] MEDS ORDERED: Insulin LISPRO 300 UNITS/3 ML VIAL SQ ONE (22:04)
[2017-06-01] MEDS: 0.9 % Sodium Chloride 1,000 ML IVC SCH (22:38)
[2017-06-02] MEDS: Acyclovir 600 MG in D5% in Water 100 ML IVPB SCH ×4 (00:05→23:56)
[2017-06-02] MEDS: *HR* Metoprolol 5 MG/5 ML VIAL IVP SCH ×5 (01:12→23:56)
[2017-06-02] MEDS: Insulin LISPRO 300 UNITS/3 ML VIAL SQ SCH ×5 (01:15→17:23)
[2017-06-02 05:51] LABS: Basophils # 0.1 K/mcL (0.0-0.2); Basophils % 0.4 %; Eosinophils % 0.1 %; Hematocrit 42.6 % (35.3-44.9); Hemoglobin 14.6 g/dL (11.5-15.4); Immature Granulocytes % 0.8 % (0-4); Lymphocytes # 1.9 K/mcL (0.6-4.6); Lymphocytes % 12.8 %; Mean Corpuscular HGB Conc 34.3 g/dL (31.6-35.5); Mean Corpuscular Hemoglobin 27.4 pg (28.0-33.3); Mean Corpuscular Volume 80.1 fL (83.0-100.0); Mean Platelet Volume 10.1 fL (9.4-12.4); Monocytes # 1.2 K/mcL (0.0-1.3); Neutrophils # 11.4 K/mcL (1.6-8.9); Platelet Count 216 K/mcL (140-400); Red Blood Count 5.32 M/mcL (3.82-4.97); Red Cell Distribution Width 13.5 % (11.5-14.5); Segmented Neutrophils % 77.9 %
[2017-06-02 06:07] LABS: BUN/Creatinine Ratio 21 (6-26); Blood Urea Nitrogen 16 mg/dL (7-20); Calcium 9.2 mg/dL (8.6-10.8); Carbon Dioxide 22 mEq/L (19-29); Chloride 105 mEq/L (98-109); Glucose 203 mg/dL (70-99); Magnesium 1.5 mg/dL (1.6-2.6); Osmolality,Calculated 293 (280-300); Phosphorous 2.3 mg/dL (2.3-4.7); Potassium 3.1 mEq/L (3.5-4.5); Sodium 138 mEq/L (136-145); eGFR For African Americans > 60 (> 60); eGFR For Non-African Americans > 60 (> 60)
[2017-06-02] MEDS: *HR* Enoxaparin 40 MG/0.4 ML SYRINGE SQ SCH (06:26)
[2017-06-02] MEDS: cefTRIAXone 2,000 MG in Water for inj. (sterile) 20 ML IVP SCH ×2 (06:26→17:19)
[2017-06-02] MEDS: Vancomycin 1,500 MG in D5% in Water 250 ML IVPB SCH ×3 (06:27→18:22)
[2017-06-02] MEDS ORDERED: Potassium Chloride 40 MEQ, Lidocaine 1% 2 ML in D5% in Water 500 ML IVPB ONE (08:49)
[2017-06-02] MEDS ORDERED: Magnesium Sulfate 1 GM in D5% in Water 100 ML IVPB ONE (08:49)
[2017-06-02] MEDS: niCARdipine 40 MG/200 ML MLS IVC SCH ×3 (08:55→17:22)
[2017-06-02] MEDS: Pantoprazole 40 MG VIAL IVP SCH (09:11)
[2017-06-02] MEDS: Insulin DETEMIR 100 UNIT/ML X5UNITS SQ SCH (09:11)
[2017-06-02] MEDS: amLODIPine 5 MG TABLET PO SCH (09:11)
[2017-06-02] MEDS: Cyanocobalamin (B-12) 1,000 MCG TABLET PO SCH (09:11)
[2017-06-02] MEDS: Magnesium Oxide 400 MG TABLET PO SCH (09:11)
[2017-06-02] MEDS ORDERED: *HR* Midazolam HCl 2 MG/2 ML VIAL IVP ONE (09:34)
[2017-06-02] MEDS ORDERED: *HR* FentaNYL (PF) 100 MCG/2 ML VIAL IVP ONE (09:36)
[2017-06-02] MEDS ORDERED: *HR* FentaNYL (PF) 100 MCG/2 ML VIAL ONE (09:42)
[2017-06-02] MEDS ORDERED: *HR* Midazolam HCl 2 MG/2 ML VIAL ONE (09:42)
[2017-06-02] MEDS ORDERED: 0.9 % Sodium Chloride 500 ML ONE (09:43)
--- NOTE | 2017-06-02 11:15 | Neurology Progress Note ---
Date of Encounter: 06/02/17 Time of Encounter: 07:50 Assessment and Plan (1) Altered mental status Current Visit: Yes Status: Acute This patient was admitted earlier with hypertensive urgency along with hyperglycemia, Continued to have significant mental status changes. as per history she was quite active before this acute episode, and this seems to be an acute mental status changes. At the moment no evidence of any acute infarct on the degraded MRI images and the same time no evidence of any temporal lobe edema as could be seen in the patient with herpes encephalitis though it remains a possibility and remains in the differential. She has been covered with broad-spectrum antibiotics as well as acyclovir I will suggest that he should continue. She is scheduled for a spinal tap with IR , due to failed bedside attempt. Suggest that he should also check for HSV PCR along with the routine CSF analysis. EEG has been negative for any nonconvulsive status. Also have to look into more detail about any medications that she has ingested that may have caused this acute mental status changes. Qualifiers: Altered mental status type: disorientation Qualified Code(s): R41.0 - Disorientation, unspecified (2) Hypertensive emergency without congestive heart failure Current Visit: Yes Status: Acute (3) Hyperosmolar syndrome Current Visit: Yes Status: Acute Subjective Interval history: Patient is seen as an follow-up she seems to be awake today but remains confused follow some commands at times oriented to person. EEG did not show any convulsive status, Merlyn had an MRI of the brain that did not show any acute infarct at the same time no evidence of any abnormality in the temporal lobes. Bedside LP attempt was unsuccessful and she is scheduled for a spinal tap and radiology Objective - Constitutional Vitals: Temp Pulse Resp BP Pulse Ox 98.4 F 95 19 175/100 95 06/02/17 09:10 06/02/17 10:04 06/02/17 10:04 06/02/17 10:04 06/02/17 10:04 General appearance: Present: A&O X 1 - Eye Eye exam: Present: EOMI Pupils: Present: PERRL - Neurological Exam Motor Examination: Present: other (moving all extremeties to deep pain with some localization) Reflexes: Biceps: 1+, Triceps: 1+, Brachioradialis: 1+, Patella: 1+, Achilles: 1 + Mental Status Examination: Present: awake, does not follow commands, localizes noxious stimulation Cranial nerve examination: Present: PERRL, corneal reflexes brisk symmetrically , no facial asymmetry is present - Expanded Neurological Exam Cranial Nerves: EOM's intact PM: Normal Results - Laboratory Findings CBC and BMP: 06/02/17 05:34 06/02/17 05:34 Abnormal lab findings: Abnormal lab results WBC 14.6 K/mcL (4.3-11.1) H 06/02/17 05:34 RBC 5.32 M/mcL (3.82-4.97) H 06/02/17 05:34 MCV 80.1 fL (83.0-100.0) L 06/02/17 05:34 MCH 27.4 pg (28.0-33.3) L 06/02/17 05:34 Neutrophils # 11.4 K/mcL (1.6-8.9) H 06/02/17 05:34 ABG pCO2 32 mmHg (35-45) L 05/31/17 22:09 ABG pO2 65 mmHg (85-104) L 05/31/17 22:09 ABG O2 Saturation 94 % (95-98) L 05/31/17 22:09 Potassium 3.1 mEq/L (3.5-4.5) L 06/02/17 05:34 Glucose 203 mg/dL (70-99) H 06/02/17 05:34 POC Glucose 203 (58-89) H 06/02/17 06:00 Hemoglobin A1c 11.2 % (-5.6) H 06/01/17 05:09 Magnesium 1.5 mg/dL (1.6-2.6) L 06/02/17 05:34 Alkaline Phosphatase 145 Units/L (38-126) H 06/01/17 00:45 Cholesterol 226 mg/dL (< 200) H 06/01/17 00:45 LDL Cholesterol, Calc 160 mg/dL (0-99) H 06/01/17 00:45 Cholesterol/HDL Ratio 5.0 (0-4.9) H 06/01/17 00:45 TSH 0.279 mcIU/mL (0.350-4.840) L 06/01/17 05:09 Ur Specific [place] 1.027 (1.010-1.025) H 05/31/17 23:48 Urine Protein 30 mg/dL (Neg-Trace) H 05/31/17 23:48 Urine Glucose (UA) >=1000 mg/dL (Normal) H 05/31/17 23:48 Urine Ketones 80 mg/dL (Negative) H 05/31/17 23:48 Urine Blood Small (Negative) H 05/31/17 23:48 Urine Microscopic RBC 3-5 per hpf (0-3) H 05/31/17 23:48 Urine Microscopic WBC 5-15 per hpf (0-3) H 05/31/17 23:48 Urine Bacteria Many per hpf (None-Few) H 05/31/17 23:48 Salicylates < 5.0 mg/dL (15-30) L 06/01/17 09:33 Consult Discharge Plan - Plan Referrals: Murrya Trevino MD [Family Provider] - (SENT WEB REQUEST ON 06-02-17 @ 0605) NONE,PCP [Primary Care Provider] -
--- NOTE | 2017-06-02 11:16 | IR Procedure Note ---
Date of procedure: 06/02/17 Consent Obtained: Written consent Timeout: Correct patient and procedure verified, Time out performed, Skin prep completed Local anesthetic: Lidocaine 1% Indications: MS changes Procedure Performed: Lumbar puncture Complications: None; Tolerated procedure well (Monitor on floor)
[2017-06-02] MEDS ORDERED: Insulin DETEMIR 100 UNIT/ML X5UNITS SQ ONE (11:53)
[2017-06-02 12:42] LABS: Red Blood Cell,CSF < 0 RBC/mcL (0-1)
[2017-06-02 12:43] LABS: Glucose,CSF 134 mg/dL (40-70); Total Protein,CSF 144 mg/dL (15-45)
[2017-06-02 12:46] LABS: Appearance,CSF Clear (Clear)
--- NOTE | 2017-06-02 14:58 | Internal Med Progress Note ---
<Fab De La Fuente - Last Filed: 06/02/17 15:05> Date of Encounter: 06/02/17 Time of Encounter: 09:00 - Assessment and plan (1) Altered mental status Current Visit: Yes Status: Acute Assessment and plan: 57-year-old female admitted with altered mental status. Initially concern for TIA versus stroke, CT of the brain demonstrates diffuse atrophy but no findings of acute ischemia or hemorrhagic stroke. Urine drug screen negative, Tylenol level negative, TSH 0.279. WBC count 14.9, patient tachycardic, increased respiratory rate, altered mental status - Current source unknown, concern for meningitis Patient seen by neurology, recommended lumbar puncture, EEG and MRI of the brain. EEG and MRI were both unremarkable. White count has decreased to 14.6. Ammonia: 39 T4: 1.24, T3: 2.37. Plan: -Possible evaluation for dysphagia. -Continue acyclovir 600 mg IV every 8, ceftriaxone 2000 mg IV every 12, vancomycin 1500 IV every 12. -Lumbar puncture results are pending. Qualifiers: Altered mental status type: disorientation Qualified Code(s): R41.0 - Disorientation, unspecified (2) TIA (transient ischemic attack) Current Visit: Yes Status: Acute Assessment and plan: Patient initially presented with difficulty speaking according to her . She had left upper extremity weakness. This gradually progressed to right upper extremity weakness. MRI has been negative. Qualifiers: Transient cerebral ischemia type: unspecified Qualified Code(s): G45.9 - Transient cerebral ischemic attack, unspecified (3) Diabetes Current Visit: Yes Status: Acute Assessment and plan: Patient is uncontrolled diabetic. -Glucoses morning was 203. -Insulin has been started. -Patient will likely need to take insulin after discharge. 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 Patient was started on insulin drip with steady improvement in her glucose. -Hemoglobin A1c of 11 -Review of patient's outpatient medical records demonstrates that she had a A1c of roughly 10.6 in 2016. -Currently not taking any medications for her diabetes at home. -Patient has been started on insulin today; will likely need insulin after discharge. -Glucose this morning was 203. Plan: -Insulin drip has been discontinued -Continuous monitoring of glucose. - Subjective Interval history: Patient seen and examined at bedside this morning. Patient appears tired; unable to verbalize. MRI this morning. Patient in no acute distress. - Constitutional Vitals: Temp Pulse Resp BP Pulse Ox 99.7 F H 107 18 163/81 98 06/02/17 11:21 06/02/17 13:30 06/02/17 11:30 06/02/17 13:30 06/02/17 11:30 General appearance: Present: no acute distress - Head Head exam: Present: atraumatic, normocephalic - Cardiovascular Cardiovascular exam: Present: RRR, +S1, +S2. Absent: diastolic murmur, gallop, rubs, systolic murmur - Skin Skin exam: Present: dry, intact Internal Medicine: Result - Labs CBC & Chem 7: 06/02/17 05:34 06/02/17 05:34 Labs: Short CBC 06/02/17 Range/Units 05:34 WBC 14.6 H (4.3-11.1) K/mcL Hgb 14.6 (11.5-15.4) g/dL Hct 42.6 (35.3-44.9) % Plt Count 216 (140-400) K/mcL Neutrophils # 11.4 H (1.6-8.9) K/mcL BMP 06/02/17 05:34 Sodium 138 Potassium 3.1 L Chloride 105 Carbon Dioxide 22 BUN 16 Creatinine 0.76 Glucose 203 H Calcium 9.2 - ABG Interpretation ABG results: ABG ABG pH 7.45 pH Units (7.32-7.45) 05/31/17 22:09 ABG pCO2 32 mmHg (35-45) L 05/31/17 22:09 ABG pO2 65 mmHg (85-104) L 05/31/17 22:09 ABG O2 Saturation 94 % (95-98) L 05/31/17 22:09 PT/INR, D-dimer PT 10.9 Seconds (9.4-12.1) 05/31/17 15:50 - Impressions Impressions Echocardiogram 06/01/17 18:11 Impressions: LVEF 70%. Normal LV chamber size, wall thickness and function. Mild left ventricular diastolic dysfunction. Normal right ventricular structure and function. No evidence of a PFO with agitated saline contrast. Mild aortic regurgitation. No evidence of pulmonary hypertension. Left Ventricular Wall Motion: Rest Echo Findings All wall segments showed normal motion. Findings: Study Quality * Technically adequate exam. ECG Findings * Sinus tachycardia. Left Ventricle * LVEF 70%. * Normal LV chamber size, wall thickness and function. * Mild left ventricular diastolic dysfunction. Right Ventricle * Normal right ventricular structure and function. Left Atrium * Mildly dilated left atrium. Right Atrium * Normal right atrial size. Interatrial Septum * No evidence of a PFO with agitated saline contrast. Aortic Valve * Aortic valve not well visualized. * No aortic stenosis. * Mild aortic regurgitation. Mitral Valve * Normal mitral valve structure and function. * No mitral stenosis. * No mitral regurgitation. Tricuspid Valve * Normal tricuspid valve structure and function. * Trace tricuspid regurgitation. * No evidence of pulmonary hypertension. Pulmonic Valve * Pulmonic valve is not well visualized. * No pulmonic regurgitation. Aorta * Normally sized aortic root. Pericardium * The pericardium appears normal. IVC * Normal IVC dimensions and inspiratory collapse. Pulmonary Artery * Normal visualized portions of the main pulmonary artery. Brain MRI 06/02/17 00:00 IMPRESSION: 1. Motion degrades images limiting evaluation. 2. No convincing evidence of acute intracranial abnormality. No definite acute infarct. 3. Moderate global parenchymal volume loss with moderate chronic microvascular ischemic change. D/ / Da Todd MD / Da Todd MD Interpreting Provider: Da Todd MD Lumbar Puncture 06/02/17 00:00 IMPRESSION: 1. Successful fluoroscopic-guided lumbar puncture. D/ / Aurelio Ferguson MD / Aurelio Ferguson MD Interpreting Provider: Aurelio Ferguson MD Consult Discharge Plan - Plan Referrals: Sujatha Decker, APPLICATION DEVELOPMENT CONSULTANT [Advanced Practice Nurse] - 06/08/17 3:00 pm NONE,PCP [Primary Care Provider] - <Ángela Yuen - Last Filed: 06/02/17 17:42> Date of Encounter: 06/02/17 Time of Encounter: 14:50 - Constitutional Vitals: Temp Pulse Resp BP Pulse Ox 98.4 F 87 17 164/88 95 06/02/17 16:20 06/02/17 16:20 06/02/17 16:20 06/02/17 16:20 06/02/17 16:20 Internal Medicine: Result - Labs CBC & Chem 7: 06/02/17 05:34 06/02/17 05:34 Labs: Short CBC 06/02/17 Range/Units 05:34 WBC 14.6 H (4.3-11.1) K/mcL Hgb 14.6 (11.5-15.4) g/dL Hct 42.6 (35.3-44.9) % Plt Count 216 (140-400) K/mcL Neutrophils # 11.4 H (1.6-8.9) K/mcL BMP 06/02/17 05:34 Sodium 138 Potassium 3.1 L Chloride 105 Carbon Dioxide 22 BUN 16 Creatinine 0.76 Glucose 203 H Calcium 9.2 - ABG Interpretation ABG results: ABG ABG pH 7.45 pH Units (7.32-7.45) 05/31/17 22:09 ABG pCO2 32 mmHg (35-45) L 05/31/17 22:09 ABG pO2 65 mmHg (85-104) L 05/31/17 22:09 ABG O2 Saturation 94 % (95-98) L 05/31/17 22:09 PT/INR, D-dimer PT 10.9 Seconds (9.4-12.1) 05/31/17 15:50 - Impressions Impressions Brain MRI 06/02/17 00:00 IMPRESSION: 1. Motion degrades images limiting evaluation. 2. No convincing evidence of acute intracranial abnormality. No definite acute infarct. 3. Moderate global parenchymal volume loss with moderate chronic microvascular ischemic change. D/ / Da Todd MD / Da Todd MD Interpreting Provider: Da Todd MD Lumbar Puncture 06/02/17 00:00 IMPRESSION: 1. Successful fluoroscopic-guided lumbar puncture. D/ / Aurelio Ferguson MD / Aurelio Ferguson MD Interpreting Provider: Aurelio Ferguson MD - Attending Attestation Patient is a 57y/o female admitted for acute metabolic encephalopathy, HTN emergency, DM, HHS, sepsis of unknown etiology. Patient independently seen and examined at bedside. More alert than previous day. s/p LP-awaiting results s/p MRI-negative for any acute intracranial abnormalities remains hyperglycemic, increased to levemir 37units SQ qdaily. will add premeal coverage once tolerating PO intake passed bedside dysphagia screening As per family, patient has been feeling ill for the last few days prior to her hospitalization however deny any substance abuse or prior episodes of such presentation. Neurology on board will continue broad spectrum abx at this time Start PO antihypertensives when able to tolerate BP better controlled, off cardene drip IV Lopressor and Hydralazine Afebrile since yesterday evening. leukocytosis mildly improved. Will continue to closely monitor Case discussed with resident physician Fab De La Fuente, I agree with his documented findings, assessment, and plan except as listed above.
[2017-06-02] MEDS: 0.9 % Sodium Chloride 1,000 ML IVC SCH (17:21)
[2017-06-02] MEDS: Vancomycin 1,750 MG in D5% in Water 500 ML IVPB SCH (19:30)
[2017-06-02] MEDS ORDERED: Insulin LISPRO 300 UNITS/3 ML VIAL SQ ONE (22:01)
[2017-06-03] MEDS: Insulin LISPRO 300 UNITS/3 ML VIAL SQ SCH ×4 (00:30→16:35)
[2017-06-03 03:21] LABS: Basophils # 0.1 K/mcL (0.0-0.2); Basophils % 0.8 %; Eosinophils # 0.1 K/mcL (0.0-0.6); Eosinophils % 0.5 %; Hemoglobin 13.1 g/dL (11.5-15.4); Immature Granulocytes % 0.4 % (0-4); Lymphocytes # 2.3 K/mcL (0.6-4.6); Lymphocytes % 19.4 %; Mean Corpuscular HGB Conc 34.5 g/dL (31.6-35.5); Mean Corpuscular Hemoglobin 27.4 pg (28.0-33.3); Mean Corpuscular Volume 79.5 fL (83.0-100.0); Mean Platelet Volume 10.1 fL (9.4-12.4); Monocytes # 1.1 K/mcL (0.0-1.3); Monocytes % 9.3 %; Neutrophils # 8.3 K/mcL (1.6-8.9); Platelet Count 196 K/mcL (140-400); Red Blood Count 4.78 M/mcL (3.82-4.97); Red Cell Distribution Width 13.2 % (11.5-14.5); Segmented Neutrophils % 69.6 %
[2017-06-03 03:39] LABS: Magnesium 1.7 mg/dL (1.6-2.6)
[2017-06-03 03:41] LABS: BUN/Creatinine Ratio 19 (6-26); Blood Urea Nitrogen 14 mg/dL (7-20); Calcium 8.9 mg/dL (8.6-10.8); Carbon Dioxide 24 mEq/L (19-29); Chloride 104 mEq/L (98-109); Glucose 161 mg/dL (70-99); Osmolality,Calculated 284 (280-300); Potassium 2.8 mEq/L (3.5-4.5); Sodium 135 mEq/L (136-145); eGFR For African Americans > 60 (> 60); eGFR For Non-African Americans > 60 (> 60)
[2017-06-03] MEDS ORDERED: Vancomycin 1,750 MG in D5% in Water 500 ML IVPB SCH (06:00)
[2017-06-03] MEDS: cefTRIAXone 2,000 MG in Water for inj. (sterile) 20 ML IVP SCH ×2 (06:22→17:59)
[2017-06-03] MEDS: *HR* Metoprolol 5 MG/5 ML VIAL IVP SCH ×3 (06:22→17:59)
[2017-06-03] MEDS: *HR* Enoxaparin 40 MG/0.4 ML SYRINGE SQ SCH (06:22)
[2017-06-03] MEDS: niCARdipine 40 MG/200 ML MLS IVC SCH ×3 (08:15→21:16)
[2017-06-03] MEDS: 0.9 % Sodium Chloride 1,000 ML IVC SCH (08:32)
[2017-06-03] MEDS: Pantoprazole 40 MG VIAL IVP SCH (08:33)
[2017-06-03] MEDS: Cyanocobalamin (B-12) 1,000 MCG TABLET PO SCH (08:33)
[2017-06-03] MEDS: amLODIPine 5 MG TABLET PO SCH (08:33)
[2017-06-03] MEDS: Vancomycin 1,750 MG in D5% in Water 500 ML IVPB SCH ×2 (08:33→17:59)
[2017-06-03] MEDS: Magnesium Oxide 400 MG TABLET PO SCH (08:33)
[2017-06-03] MEDS: Acyclovir 600 MG in D5% in Water 100 ML IVPB SCH ×2 (08:33→16:35)
[2017-06-03] MEDS: Insulin DETEMIR 100 UNIT/ML X5UNITS SQ SCH ×2 (08:34→09:42)
--- NOTE | 2017-06-03 10:11 | Internal Med Progress Note ---
<Fab De La Fuente - Last Filed: 06/03/17 13:35> Date of Encounter: 06/03/17 Time of Encounter: 09:15 - Assessment and plan (1) Altered mental status Current Visit: Yes Status: Acute Assessment and plan: 57-year-old female admitted with altered mental status. Initially concern for TIA versus stroke, CT of the brain demonstrates diffuse atrophy but no findings of acute ischemia or hemorrhagic stroke. Urine drug screen negative, Tylenol level negative, TSH 0.279. WBC count 14.9, patient tachycardic, increased respiratory rate, altered mental status -Current source unknown. -Patient's AMS appears to have resolved. No longer has difficulty speaking. A and O X3. -No recollection of the past few days -EEG and MRI were both unremarkable. -Lumbar puncture performed on 06/02/17. Glucose: 144, CSF tot. nucleated cells : 10. CSF cx negative. -WC: 12.0 Plan: -Continue acyclovir 600 mg IV every 8, ceftriaxone 2000 mg IV every 12, vancomycin 1500 IV every 12. -Lumbar puncture Antigen/Ab pending (cryptococcus, HSV 1 and 2, toxoplasmosis, VDRL, echovirus, fungal cx) Qualifiers: Altered mental status type: disorientation Qualified Code(s): R41.0 - Disorientation, unspecified (2) TIA (transient ischemic attack) Current Visit: Yes Status: Acute Assessment and plan: Patient initially presented with difficulty speaking according to her . -She had left upper extremity weakness. -This gradually progressed to right upper extremity weakness. -MRI negative; no focal deficits or residual weakness present. Qualifiers: Transient cerebral ischemia type: unspecified Qualified Code(s): G45.9 - Transient cerebral ischemic attack, unspecified (3) Diabetes Current Visit: Yes Status: Acute Assessment and plan: Patient is uncontrolled diabetic. -Glucose this morning was 161. -HbA1C of 11. -Insulin has been started. -Patient will likely need to take insulin after discharge. 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 Patient was started on insulin drip with steady improvement in her glucose. -Hemoglobin A1c of 11 -Review of patient's outpatient medical records demonstrates that she had a A1c of roughly 10.6 in 2016. -Currently not taking any medications for her diabetes at home. -Patient has been started on insulin; will likely need insulin after discharge. -Glucose this morning was 161. Plan: -Continuous monitoring of glucose. - Subjective Interval history: Patient seen and examined at bedside this morning. Patient is now able to speak without difficulty. Alert and oriented x 3. States that she feels much better. Feels somewhat tired; does not feel like eating her food. Denies weakness, numbness, tingling, chills, nausea, or vomiting. Denies headache, neck pain, and photophobia. She reports that she has no recollection of her admission or presenting symptoms at all. States that this never happened to her before. - Constitutional Vitals: Temp Pulse Resp BP Pulse Ox 97.8 F 77 16 148/95 95 06/03/17 08:02 06/03/17 08:53 06/03/17 08:02 06/03/17 08:02 06/03/17 08:02 General appearance: Present: A&O X 3, no acute distress, answers questions appropriately - Head Head exam: Present: atraumatic, normocephalic - Eye Eye exam: Present: PERRL, conjuntiva pink, sclera anicteric Pupils: Present: PERRL - Neck Neck exam general surgery: Present: supple, trachea midline. Absent: lymphadenopathy - Respiratory Respiratory exam: Present: CTAB. Absent: accessory muscle use, rales, rhonchi, wheezes - Cardiovascular Cardiovascular exam: Present: RRR, +S1, +S2. Absent: diastolic murmur, gallop, rubs, systolic murmur - Extremities Exam Extremities exam: Present: warm, radial pulses palpable and symmetrical - Neurological Exam Neurological exam: Present: CN II-XII intact, oriented X3, no focal deficits - Psychiatric Psychiatric exam: Present: normal affect, normal mood - Skin Skin exam: Present: dry, intact Internal Medicine: Result - Labs CBC & Chem 7: 06/03/17 02:53 06/03/17 02:53 Labs: Short CBC 06/03/17 Range/Units 02:53 WBC 12.0 H (4.3-11.1) K/mcL Hgb 13.1 D (11.5-15.4) g/dL Hct 38.0 (35.3-44.9) % Plt Count 196 (140-400) K/mcL Neutrophils # 8.3 (1.6-8.9) K/mcL BMP 06/03/17 02:53 Sodium 135 L Potassium 2.8 L Chloride 104 Carbon Dioxide 24 BUN 14 Creatinine 0.74 Glucose 161 H Calcium 8.9 - ABG Interpretation ABG results: ABG ABG pH 7.45 pH Units (7.32-7.45) 05/31/17 22:09 ABG pCO2 32 mmHg (35-45) L 05/31/17 22:09 ABG pO2 65 mmHg (85-104) L 05/31/17 22:09 ABG O2 Saturation 94 % (95-98) L 05/31/17 22:09 PT/INR, D-dimer PT 10.9 Seconds (9.4-12.1) 05/31/17 15:50 - Impressions Impressions Brain MRI 06/02/17 00:00 IMPRESSION: 1. Motion degrades images limiting evaluation. 2. No convincing evidence of acute intracranial abnormality. No definite acute infarct. 3. Moderate global parenchymal volume loss with moderate chronic microvascular ischemic change. D/ / Da Todd MD / Da Todd MD Interpreting Provider: Da Todd MD Lumbar Puncture 06/02/17 00:00 IMPRESSION: 1. Successful fluoroscopic-guided lumbar puncture. D/ / Aurelio Ferguson MD / Aurelio Ferguson MD Interpreting Provider: Aurelio Ferguson MD Consult Discharge Plan - Plan Referrals: Sujatha Decker, WELFARE PROJECT MANAGER [Advanced Practice Nurse] - 06/08/17 3:00 pm <Edwin Pena - Last Filed: 06/03/17 14:16> Date of Encounter: 06/03/17 - Constitutional Vitals: Temp Pulse Resp BP Pulse Ox 98.0 F 83 16 160/95 95 06/03/17 11:05 06/03/17 11:24 06/03/17 11:05 06/03/17 11:05 06/03/17 11:05 Internal Medicine: Result - Labs CBC & Chem 7: 06/03/17 02:53 06/03/17 02:53 Labs: Short CBC 06/03/17 Range/Units 02:53 WBC 12.0 H (4.3-11.1) K/mcL Hgb 13.1 D (11.5-15.4) g/dL Hct 38.0 (35.3-44.9) % Plt Count 196 (140-400) K/mcL Neutrophils # 8.3 (1.6-8.9) K/mcL BMP 06/03/17 02:53 Sodium 135 L Potassium 2.8 L Chloride 104 Carbon Dioxide 24 BUN 14 Creatinine 0.74 Glucose 161 H Calcium 8.9 - ABG Interpretation ABG results: ABG ABG pH 7.45 pH Units (7.32-7.45) 05/31/17 22:09 ABG pCO2 32 mmHg (35-45) L 05/31/17 22:09 ABG pO2 65 mmHg (85-104) L 05/31/17 22:09 ABG O2 Saturation 94 % (95-98) L 05/31/17 22:09 PT/INR, D-dimer PT 10.9 Seconds (9.4-12.1) 05/31/17 15:50 - Attending Attestation I independently interviwed and examined this pt. I agree wiht the findings, assessment and plan of Dr. De La Fuente. Neurology input appreciated. 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 Continue Acyclovir. All else as above. Pt continues to show significant clinical improvement,
[2017-06-03] MEDS: Ibuprofen 400 MG TABLET PO PRN (11:19)
--- NOTE | 2017-06-03 12:25 | Neurology Progress Note ---
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 Her mental status is significantly improved on the acyclovir. 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 I highly recommend that we maintain a full 10 day course of IV acyclovir therapy. I would also like to repeat the MRI scan of the brain in the morning. She is clinically improved however I do not feel is necessary to do the MRI scan today. If medicine feels that her other medical problems are stable I am okay with her receiving the remainder of the IV acyclovir therapy as an outpatient. Qualifiers: Altered mental status type: disorientation Qualified Code(s): R41.0 - Disorientation, unspecified Subjective Interval history: The chart was reviewed, the patient was seen and examined independently. Case was discussed with Dr. Cotter during signout. I am pleased to report that the patient is much improved today. She is sitting up in her bed awake and alert. She still has some minor difficulty with processing commands. However she is not encephalopathic today. She does complain of a mild frontal headache today. The LP did reveal 10 WBCs 42% of which were lymphocytes. Protein was also elevated. The CSF Gram stain was negative, cultures were negative. Acid-fast bacilli and cryptococcal antigen were negative as well. She has had an EEG which was negative for seizure activity MRI scan of the brain was poor quality due to patient movement. Other pertinent findings were her initial blood gas showed that her O2 level was decreased at 65, also her initial urinalysis did reveal increased WBC's and bacteria. Nitrites and leukocyte esterase were absent. However urine culture was felt not necessary. Patient has no focal or lateralized deficits a day, however she does have some mild motor apraxia. Objective - Constitutional Vitals: Temp Pulse Resp BP Pulse Ox 98.0 F 83 16 160/95 95 06/03/17 11:05 06/03/17 11:24 06/03/17 11:05 06/03/17 11:05 06/03/17 11:05 General appearance: Present: A&O X 1 - Neurological Exam Motor Examination: Present: grossly full strength in all extremities Sensation intact: Present: intact Reflex and gait examination: other (Deep tendon reflexes are 1 symmetrically in the biceps triceps , and brachial radialis. Patellar reflexes are diminished, Achilles reflexes are absent. No long tract signs are present.) Mental Status Examination: Present: awake, alert, oriented to person, localizes noxious stimulation Cranial nerve examination: Present: PERRL, EOMI, corneal reflexes brisk symmetrically, sensory to face intact, no facial asymmetry is present, no dysarthria Additional comments: Mental status assessment finds that she is awake alert and oriented to person and place. She follows most commands without difficulty however has some motor apraxia with others. She is not somnolent to encephalopathic today. Speech and language are intact. Results - Laboratory Findings CBC and BMP: 06/03/17 02:53 06/03/17 02:53 Abnormal lab findings: Abnormal lab results WBC 12.0 K/mcL (4.3-11.1) H 06/03/17 02:53 MCV 79.5 fL (83.0-100.0) L 06/03/17 02:53 MCH 27.4 pg (28.0-33.3) L 06/03/17 02:53 ABG pCO2 32 mmHg (35-45) L 05/31/17 22:09 ABG pO2 65 mmHg (85-104) L 05/31/17 22:09 ABG O2 Saturation 94 % (95-98) L 05/31/17 22:09 Sodium 135 mEq/L (136-145) L 06/03/17 02:53 Potassium 2.8 mEq/L (3.5-4.5) L 06/03/17 02:53 Glucose 161 mg/dL (70-99) H 06/03/17 02:53 POC Glucose 156 (58-89) H 06/02/17 23:50 Hemoglobin A1c 11.2 % (-5.6) H 06/01/17 05:09 Alkaline Phosphatase 145 Units/L (38-126) H 06/01/17 00:45 Cholesterol 226 mg/dL (< 200) H 06/01/17 00:45 LDL Cholesterol, Calc 160 mg/dL (0-99) H 06/01/17 00:45 Cholesterol/HDL Ratio 5.0 (0-4.9) H 06/01/17 00:45 TSH 0.279 mcIU/mL (0.350-4.840) L 06/01/17 05:09 Ur Specific [place] 1.027 (1.010-1.025) H 05/31/17 23:48 Urine Protein 30 mg/dL (Neg-Trace) H 05/31/17 23:48 Urine Glucose (UA) >=1000 mg/dL (Normal) H 05/31/17 23:48 Urine Ketones 80 mg/dL (Negative) H 05/31/17 23:48 Urine Blood Small (Negative) H 05/31/17 23:48 Urine Microscopic RBC 3-5 per hpf (0-3) H 05/31/17 23:48 Urine Microscopic WBC 5-15 per hpf (0-3) H 05/31/17 23:48 Urine Bacteria Many per hpf (None-Few) H 05/31/17 23:48 CSF RBC < 0 RBC/mcL (0-1) L 06/02/17 09:52 CSF Tot Nucleated Cells 10 TNC/mcL (0-5) H 06/02/17 09:52 CSF Glucose 134 mg/dL (40-70) H 06/02/17 09:52 CSF Total Protein 144 mg/dL (15-45) H 06/02/17 09:52 Salicylates < 5.0 mg/dL (15-30) L 06/01/17 09:33 Consult Discharge Plan - Plan Referrals: Sujatha Decker, OUTREACH MANAGER [Advanced Practice Nurse] - 06/08/17 3:00 pm
[2017-06-03] MEDS: *HR* HYDROcodone/Acet 5/325 mg TABLET PO PRN ×2 (14:43→21:24)
[2017-06-04] MEDS: Insulin LISPRO 300 UNITS/3 ML VIAL SQ SCH ×4 (00:58→17:04)
[2017-06-04] MEDS: Acyclovir 600 MG in D5% in Water 100 ML IVPB SCH ×3 (01:00→16:15)
[2017-06-04] MEDS: *HR* Metoprolol 5 MG/5 ML VIAL IVP SCH ×3 (01:01→12:36)
[2017-06-04] MEDS: niCARdipine 40 MG/200 ML MLS IVC SCH ×3 (04:15→17:35)
[2017-06-04] MEDS: 0.9 % Sodium Chloride 1,000 ML IVC SCH ×4 (04:18→21:22)
[2017-06-04 06:09] LABS: Basophils # 0.1 K/mcL (0.0-0.2); Basophils % 0.9 %; Eosinophils # 0.2 K/mcL (0.0-0.6); Eosinophils % 2.3 %; Hematocrit 37.4 % (35.3-44.9); Hemoglobin 12.8 g/dL (11.5-15.4); Immature Granulocytes % 0.5 % (0-4); Immature Platelets 4.2 % (1.1-6.1); Lymphocytes # 1.4 K/mcL (0.6-4.6); Lymphocytes % 21.6 %; Mean Corpuscular HGB Conc 34.2 g/dL (31.6-35.5); Mean Corpuscular Hemoglobin 27.4 pg (28.0-33.3); Mean Corpuscular Volume 80.1 fL (83.0-100.0); Mean Platelet Volume 10.1 fL (9.4-12.4); Monocytes # 0.6 K/mcL (0.0-1.3); Monocytes % 9.8 %; Neutrophils # 4.2 K/mcL (1.6-8.9); Platelet Count 171 K/mcL (140-400); Red Blood Count 4.67 M/mcL (3.82-4.97); Red Cell Distribution Width 13.2 % (11.5-14.5); Segmented Neutrophils % 64.9 %
[2017-06-04] MEDS: cefTRIAXone 2,000 MG in Water for inj. (sterile) 20 ML IVP SCH (06:17)
[2017-06-04] MEDS: *HR* Enoxaparin 40 MG/0.4 ML SYRINGE SQ SCH (06:17)
[2017-06-04 06:21] LABS: BUN/Creatinine Ratio 15 (6-26); Blood Urea Nitrogen 12 mg/dL (7-20); Calcium 8.7 mg/dL (8.6-10.8); Carbon Dioxide 27 mEq/L (19-29); Chloride 110 mEq/L (98-109); Glucose 120 mg/dL (70-99); Osmolality,Calculated 295 (280-300); Potassium 2.8 mEq/L (3.5-4.5); eGFR For African Americans > 60 (> 60); eGFR For Non-African Americans > 60 (> 60)
[2017-06-04 06:22] LABS: Sodium 142 mEq/L (136-145)
[2017-06-04] MEDS: Cyanocobalamin (B-12) 1,000 MCG TABLET PO SCH (07:51)
[2017-06-04] MEDS: Pantoprazole 40 MG VIAL IVP SCH (07:52)
[2017-06-04] MEDS: Magnesium Oxide 400 MG TABLET PO SCH (07:52)
[2017-06-04] MEDS: amLODIPine 5 MG TABLET PO SCH (07:52)
[2017-06-04] MEDS ORDERED: Potassium Chloride Elixir 20 MEQ/15 ML UDC PO ONE (09:52)
[2017-06-04] MEDS: Insulin DETEMIR 100 UNIT/ML X5UNITS SQ SCH (09:56)
--- NOTE | 2017-06-04 12:35 | Discharge Summary ---
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 -Per neurology, patient is to be treated with a full 10 day course of the sacral area. -Patient is on day 4 of acyclovir. We will continue acyclovir for 6 days IV in the outpatient setting. Qualifiers: Altered mental status type: disorientation Qualified Code(s): R41.0 - Disorientation, unspecified (2) TIA (transient ischemic attack) Priority: Secondary Status: Acute Qualifiers: Transient cerebral ischemia type: unspecified Qualified Code(s): G45.9 - Transient cerebral ischemic attack, unspecified (3) Diabetes Priority: Secondary Status: Acute Qualifiers: Diabetes mellitus type: type 2 Diabetes mellitus complication status: without complication Diabetes mellitus halfway insulin use: unspecified terminal gauger supervisor insulin use status Qualified Code(s): E11.9 - Type 2 diabetes mellitus without complications (4) Hyperosmolar syndrome Priority: Secondary Status: Acute - Discharge Medications Home Medications: Cyanocobalamin (Vitamin B-12) [Vitamin B-12] 500 mcg PO DAILY 05/31/17 [History] Ibuprofen [Motrin] 400 mg PO Q6H PRN 05/31/17 [History] Loratadine [Allergy Relief] 10 mg PO DAILY PRN 05/31/17 [History] Magnesium Oxide [Magnesium] 400 mg PO DAILY 05/31/17 [History] Potassium 99 mg PO TID PRN 05/31/17 [History] Amiodarone [Cordarone] 200 mg PO DAILY 06/04/17 [History] Amlodipine Besylate [Amlodipine Besylate] 10 tab PO DAILY 06/04/17 [History] Apixaban [Eliquis] 5 mg PO BID 06/04/17 [History] Atorvastatin [Lipitor] 80 mg PO HS 06/04/17 [History] HYDROcodone/Acet 10/325 mg [[place] 10-325 mg] 1 tab PO Q6HR PRN 06/04/17 [History ] Lisinopril [Zestril] 10 mg PO BID 06/04/17 [History] Metoprolol [Lopressor] 25 mg PO BID 06/04/17 [History] Allergies/Adverse Reactions: 3 Allergy/AdvReac Type Severity Reaction Status Date / Time Penicillins [PCN] Allergy Vomiting Verified 05/31/17 16:38 Tetracycline Allergy Vomiting Verified 05/31/17 16:38 tramadol AdvReac Headache Verified 05/31/17 16:38 Procedures/tests Complete & Pending: Procedures Performed prior 72 hours Category Date Time Status IR drain cerebrospinal fluid [IR] Routine IR 06/02/17 Completed MR head/brain wo con [MR] Routine MRI 06/02/17 Completed MR head/brain wo con [MR] Routine MRI 06/04/17 12:32 Completed Date of admission: 06/01/17 17:41 Primary care physician: PCP NONE Consults: 06/02/17 14:53 Consult to Nutrition [CONS] Routine Comment: Consulting Provider: NUTRITION Reason for Dietary Consult: PO Supplementation Diet Education Consult to [place] [CONS] Routine Reason for SW Consult: POSS NEED FOR REHAB 06/04/17 11:31 Consult to Occupational Therapy [CONS] Routine Comment: Evaluate, develop and implement POC Reason for Consult: discharge planning Consult to Physical Therapy [CONS] Routine Comment: Evaluate, develop and implement POC Reason for Consult: discharge planning Discharging clinician: Fab De La Fuente Anticipated date of discharge: 06/04/17 - Patient Status Disposition: Home, Self-Care Condition: Fair Overall status at discharge: patient is progressing back to baseline - Discharge Instructions Follow Up With: Sujatha Decker, [employer] [Advanced Practice Nurse] - 06/08/17 3:00 pm - Diet and Activity Activity: increase activity as tolerated Diet: diabetic diet, low fat, low cholesterol Hospital course: Ms. Rodriguez is a 57 year old female with a past medical history of diabetes, hyperlipidemia, and hypertension who presented to the hospital with the chief complaint of right upper extremity weakness, slurred speech, and headache. Patient reported that she was running errands and was getting out of her car and saw sunlight to the trees, which gave her a headache. She has a known history of migraines in the past. According to her , she began to feel nauseous and requested to go home. When she got to her house, she was noted to have slurred speech and numbness and tingling in both upper extremities. She attempted to get in her car, and started vomiting and fell. By the time she had arrived to the emergency department, patient's symptoms had largely subsided. On arrival, it was determined the patient had an elevated blood pressure at 190/ 25. Pulse was 101, respiratory rate was 22. CT of the head was done, showed no acute intracranial abnormality. Patient was admitted for further evaluation for potential CVA/TIA. She was alert and oriented 3 and responsive to verbal stimuli. Urine drug screen was negative. There was an initial concern for TIA. Neurology was consulted. Patient had a white count of 14.9. Glucose level 350. Was started on insulin drip with steady improvement in her glucose. Hemoglobin A1c was determined to be 11. She had not been taking any diabetes medication at home. Due to the combination of her elevated white count, headache, and altered mental status, there was a concern for possible meningitis. Patient was started on prophylactic antibiotics: Acyclovir 600 mg IV every 8, ceftriaxone 2000 mg every 12 IV, and vancomycin 1500 IV every 12. Lumbar puncture was ordered. Neurology was consultative, and MRI was ordered as well. MRI was negative. Lumbar puncture performed on 06/02/17 revealed the following: Glucose of 144, CSF total nucleated cells 10, and CSF culture was negative. Antigen test was also negative. After her lumbar puncture, patient was alert and able to answer questions by shaking her head yes and no, but was unable to vocalize. 2 days after her lumbar puncture, patient was able to speak again. Stated that she had no recollection of the events leading her to the hospital. 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 MRI studies have been negative, and patient's altered mental status has improved on date of discharge. Neurology's recommendation is to complete a full 10 day course of acyclovir. On date of discharge, patient has been on acyclovir for a total of 4 days. We will order 6 more days of acyclovir IV, which patient can take in the outpatient setting. On date of discharge, patient 's condition has improved, and she has no complaints. - Time Spent with Patient Total time spent providing and/or coordinating discharge services: Greater than 30 minutes (40 minutes) - Constitutional Vitals: Temp Pulse Resp BP Pulse Ox 97.8 F 73 16 159/94 98 06/04/17 11:40 06/04/17 11:40 06/04/17 11:40 06/04/17 11:40 06/04/17 11:40 General appearance: Present: A&O X 3, no acute distress, answers questions appropriately - Head Head exam: Present: atraumatic, normocephalic - Eye Eye exam: Present: PERRL, conjuntiva pink, sclera anicteric Pupils: Present: PERRL - Neck Neck exam general surgery: Present: supple, trachea midline. Absent: lymphadenopathy - Respiratory Respiratory exam: Present: CTAB. Absent: accessory muscle use, rales, rhonchi, wheezes - Cardiovascular Cardiovascular exam: Present: RRR, +S1, +S2. Absent: diastolic murmur, gallop, rubs, systolic murmur - GI/Abdominal GI/Abdominal exam: Present: normal bowel sounds, soft, no peritoneal signs. Absent: distended, tenderness - Extremities Exam Extremities exam: Present: warm, radial pulses palpable and symmetrical. Absent : calf tenderness, cyanotic, pedal edema - Neurological Exam Neurological exam: Present: CN II-XII intact, oriented X3, no focal deficits. Absent: pronater drift, facial droop, speech deficit - Skin Skin exam: Present: dry, intact <Edwin Pena - Last Filed: 06/04/17 13:36> Date of Encounter: 06/04/17 Procedures/tests Complete & Pending: Procedures Performed prior 72 hours Category Date Time Status IR drain cerebrospinal fluid [IR] Routine IR 06/02/17 Completed MR head/brain wo con [MR] Routine MRI 06/02/17 Completed MR head/brain wo con [MR] Routine MRI 06/04/17 12:32 Completed Date of admission: 06/01/17 17:41 Primary care physician: PCP NONE Consults: 06/02/17 14:53 Consult to Nutrition [CONS] Routine Comment: Consulting Provider: NUTRITION Reason for Dietary Consult: PO Supplementation Diet Education Consult to [place] [CONS] Routine Reason for SW Consult: POSS NEED FOR REHAB 06/04/17 11:31 Consult to Occupational Therapy [CONS] Routine Comment: Evaluate, develop and implement POC Reason for Consult: discharge planning Consult to Physical Therapy [CONS] Routine Comment: Evaluate, develop and implement POC Reason for Consult: discharge planning Hospital course: Ms. Rodriguez is a 57 year old female - Time Spent with Patient Total time spent providing and/or coordinating discharge services: - Constitutional Vitals: Temp Pulse Resp BP Pulse Ox 97.8 F 73 16 159/94 98 06/04/17 11:40 06/04/17 11:40 06/04/17 11:40 06/04/17 11:40 06/04/17 11:40 - Attending Attestation I apparently examined and interviewed this patient. I agree with the findings, assessment, and plan of Dr. De La Fuente. Case also discussed with neurology. Plan will be to complete a ten-day course of IV acyclovir for suspected HSV encephalitis. Patient otherwise is doing well. She will also need secondary stroke prevention measures. Patient will have a midline catheter placed to complete her IV acyclovir. He will follow up with her primary care physician next week. Patient is currently stable for discharge. 38 minutes spent on discharge and coordination of care. Please see discharge summary.
[2017-06-04] MEDS: *HR* HYDROcodone/Acet 5/325 mg TABLET PO PRN ×2 (13:26→21:43)
[2017-06-04] MEDS ORDERED: Aminoglycoside Consult 1 EACH MC ONE (13:33)
--- NOTE | 2017-06-04 15:04 | Neurology Progress Note ---
Date of Encounter: 06/04/17 Time of Encounter: 15:01 Assessment and Plan (1) Altered mental status Current Visit: Yes Status: Acute Etiology of which is uncertain, suspect herpes encephalitis. However cannot rule out other metabolic etiologies; also consider hypertensive encephalopathy or urosepsis. In any regard she is clinically improved on the acyclovir. Since we do not have PCR testing back yet recommend a full 10 day course of IV acyclovir which may be completed as an outpatient. This was discussed with the resident lubrication worker. I will reevaluate her at your request. Her neurologic exam finds no focal or lateralized deficits, her mental status changes have resolved. Qualifiers: Altered mental status type: disorientation Qualified Code(s): R41.0 - Disorientation, unspecified Subjective Interval history: Chart was reviewed, patient was seen and examined. Case was discussed with nursing as well as the medicine resident. The patient continues to improve clinically. She is alert and oriented lying in the bed. She still complains of frontal headache. However she denies any focal or lateralized deficits. I did review the MRI scan of the brain. There were a few tiny punctate hyperintensities majority of which are in the left temporal region, there appeared to be a subacute infarction in the central semiovale on the right. I am not convinced that these punctate abnormalities are due to a vascular phenomenon. 2 small into a few to represent syndrome significant enough to resulted in mental status changes. Etiologies to consider other than herpes encephalitis might have been hypertensive encephalopathy, perhaps urosepsis. Objective - Constitutional Vitals: Temp Pulse Resp BP Pulse Ox 97.8 F 73 16 159/94 98 06/04/17 11:40 06/04/17 11:40 06/04/17 11:40 06/04/17 11:40 06/04/17 11:40 General appearance: Present: A&O X 1 - Neurological Exam Motor Examination: Present: grossly full strength in all extremities Sensation intact: Present: intact Reflex and gait examination: other (Deep tendon reflexes are 1 symmetrically in the biceps triceps , and brachial radialis. Patellar reflexes are diminished, Achilles reflexes are absent. No long tract signs are present.) Mental Status Examination: Present: awake, alert, oriented to person, oriented to place, oriented to time, follows commands appropriately, answers questions appropriately, localizes noxious stimulation Cranial nerve examination: Present: PERRL, EOMI, visual alvarez intact, corneal reflexes brisk symmetrically, sensory to face intact, no facial asymmetry is present, no dysarthria Results - Laboratory Findings CBC and BMP: 06/04/17 06:01 06/04/17 06:01 Abnormal lab findings: Abnormal lab results MCV 80.1 fL (83.0-100.0) L 06/04/17 06:01 MCH 27.4 pg (28.0-33.3) L 06/04/17 06:01 ABG pCO2 32 mmHg (35-45) L 05/31/17 22:09 ABG pO2 65 mmHg (85-104) L 05/31/17 22:09 ABG O2 Saturation 94 % (95-98) L 05/31/17 22:09 Potassium 2.8 mEq/L (3.5-4.5) L 06/04/17 06:01 Chloride 110 mEq/L (98-109) H 06/04/17 06:01 Glucose 120 mg/dL (70-99) H 06/04/17 06:01 POC Glucose 187 (58-89) H 06/04/17 11:45 Hemoglobin A1c 11.2 % (-5.6) H 06/01/17 05:09 Alkaline Phosphatase 145 Units/L (38-126) H 06/01/17 00:45 Cholesterol 226 mg/dL (< 200) H 06/01/17 00:45 LDL Cholesterol, Calc 160 mg/dL (0-99) H 06/01/17 00:45 Cholesterol/HDL Ratio 5.0 (0-4.9) H 06/01/17 00:45 TSH 0.279 mcIU/mL (0.350-4.840) L 06/01/17 05:09 Ur Specific [place] 1.027 (1.010-1.025) H 05/31/17 23:48 Urine Protein 30 mg/dL (Neg-Trace) H 05/31/17 23:48 Urine Glucose (UA) >=1000 mg/dL (Normal) H 05/31/17 23:48 Urine Ketones 80 mg/dL (Negative) H 05/31/17 23:48 Urine Blood Small (Negative) H 05/31/17 23:48 Urine Microscopic RBC 3-5 per hpf (0-3) H 05/31/17 23:48 Urine Microscopic WBC 5-15 per hpf (0-3) H 05/31/17 23:48 Urine Bacteria Many per hpf (None-Few) H 05/31/17 23:48 CSF RBC < 0 RBC/mcL (0-1) L 06/02/17 09:52 CSF Tot Nucleated Cells 10 TNC/mcL (0-5) H 06/02/17 09:52 CSF Glucose 134 mg/dL (40-70) H 06/02/17 09:52 CSF Total Protein 144 mg/dL (15-45) H 06/02/17 09:52 Vancomycin Trough 28.0 mcg/mL (10-20) H* 06/04/17 06:01 Salicylates < 5.0 mg/dL (15-30) L 06/01/17 09:33 Consult Discharge Plan - Plan Referrals: Sujatha Decker, SP[employer]LE CARVER [Advanced Practice Nurse] - 06/08/17 3:00 pm
--- NOTE | 2017-06-04 15:42 | Physician Discharge Referral ---
Home Health/Hosp Referral Info Transfer to: Home Health Provider in Charge Post Discharge: PCP - Diagnosis (1) TIA (transient ischemic attack) Status: Acute (2) Altered mental status Priority: Primary Status: Acute - Respiratory Orders Smoking Cessation: Smoking cessation has been advised. For more information, call the [place] Tobacco Quit Line at 9-998-YVBO-NOW. - Services Needed Following services are medically necessary services: Nursing, Home Infusion Home Care Orders: Acyclovir 600mg IV q8h for 5 days - Transfer Medications Prescriptions: Acyclovir [Zovirax] 600 mg IV Q8HR 5 Days #15 vial Home Medications: Cyanocobalamin (Vitamin B-12) [Vitamin B-12] 500 mcg PO DAILY 05/31/17 [History] Ibuprofen [Motrin] 400 mg PO Q6H PRN 05/31/17 [History] Loratadine [Allergy Relief] 10 mg PO DAILY PRN 05/31/17 [History] Magnesium Oxide [Magnesium] 400 mg PO DAILY 05/31/17 [History] Potassium 99 mg PO TID PRN 05/31/17 [History] Acyclovir [Zovirax] 600 mg IV Q8HR 5 Days #15 vial 06/04/17 [Rx] Amiodarone [Cordarone] 200 mg PO DAILY 06/04/17 [History] Amlodipine Besylate [Amlodipine Besylate] 10 tab PO DAILY 06/04/17 [History] Apixaban [Eliquis] 5 mg PO BID 06/04/17 [History] Atorvastatin [Lipitor] 80 mg PO HS 06/04/17 [History] HYDROcodone/Acet 10/325 mg [[place] 10-325 mg] 1 tab PO Q6HR PRN 06/04/17 [History ] Lisinopril [Zestril] 10 mg PO BID 06/04/17 [History] Metoprolol [Lopressor] 25 mg PO BID 06/04/17 [History] Allergies/Adverse Reactions: 3 Allergy/AdvReac Type Severity Reaction Status Date / Time Penicillins [PCN] Allergy Vomiting Verified 05/31/17 16:38 Tetracycline Allergy Vomiting Verified 05/31/17 16:38 tramadol AdvReac Headache Verified 05/31/17 16:38 Certification: Further, I certify that my clinical findings support that this patient is homebound (i.e. absences from home require considerable and taxing effort and are for medical reasons or caodaism services or infrequently or short duration when for other reasons) because: Homebound Reason: Patient requires assistance of a person or device to safely leave home Attestation: My signature below is to certify that this patient is under my care and that I, or nurse practitioner, or a physician's nursing assistant working with me, has a face-to -face encounter with this patient.
[2017-06-04 19:10] LABS: Toxoplasma gondii Source CSF
[2017-06-04] MEDS: Ibuprofen 400 MG TABLET PO PRN (19:41)
[2017-06-04] MEDS ORDERED: Insulin LISPRO 300 UNITS/3 ML VIAL SQ SCH (21:00)
[2017-06-04 22:31] LABS: BUN/Creatinine Ratio 15 (6-26); Blood Urea Nitrogen 13 mg/dL (7-20); Calcium 8.7 mg/dL (8.6-10.8); Carbon Dioxide 26 mEq/L (19-29); Chloride 105 mEq/L (98-109); Glucose 212 mg/dL (70-99); Osmolality,Calculated 292 (280-300); Potassium 3.5 mEq/L (3.5-4.5); Sodium 138 mEq/L (136-145); eGFR For African Americans > 60 (> 60); eGFR For Non-African Americans > 60 (> 60)
[2017-06-05] MEDS: Acyclovir 600 MG in D5% in Water 100 ML IVPB SCH ×2 (00:01→08:07)
[2017-06-05] MEDS: niCARdipine 40 MG/200 ML MLS IVC SCH (03:53)
[2017-06-05] MEDS: *HR* HYDROcodone/Acet 5/325 mg TABLET PO PRN ×2 (03:56→11:48)
[2017-06-05] MEDS: *HR* Enoxaparin 40 MG/0.4 ML SYRINGE SQ SCH (05:25)
[2017-06-05 07:47] LABS: CSF Adenosine Deaminase 1.1 U/L (0.0-1.5)
[2017-06-05 07:47] LABS: Toxoplasma gondii PCR NOT DETECTED
[2017-06-05] MEDS: Pantoprazole 40 MG VIAL IVP SCH (08:07)
[2017-06-05] MEDS: Magnesium Oxide 400 MG TABLET PO SCH (08:08)
[2017-06-05] MEDS: Cyanocobalamin (B-12) 1,000 MCG TABLET PO SCH (08:08)
[2017-06-05] MEDS: Insulin LISPRO 300 UNITS/3 ML VIAL SQ SCH ×2 (08:09→11:44)
[2017-06-05] MEDS: amLODIPine 5 MG TABLET PO SCH (08:10)
[2017-06-05] MEDS: Insulin DETEMIR 100 UNIT/ML X5UNITS SQ SCH (08:43)
[2017-06-05 11:42] VITALS: BP 156/86
--- NOTE | 2017-06-05 12:53 | Internal Med Progress Note ---
<Sofia Ruiz - Last Filed: 06/05/17 13:15> Date of Encounter: 06/05/17 Time of Encounter: 12:49 - Assessment and plan (1) Altered mental status Status: Resolved Assessment and plan: Per neurology, AMS is likely due to herpes encephalitis. -Today is day 5 of acyclovir. Continue acyclovir for 6 days IV as outpatient. Qualifiers: Altered mental status type: disorientation Qualified Code(s): R41.0 - Disorientation, unspecified (2) TIA (transient ischemic attack) Status: Acute Assessment and plan: No focal deficits or residual weakness present. Qualifiers: Transient cerebral ischemia type: unspecified Qualified Code(s): G45.9 - Transient cerebral ischemic attack, unspecified (3) Diabetes Status: Acute Assessment and plan: -Uncontrolled diabetic. -SSI during admission, will likely need to take insulin after discharge. Qualifiers: Diabetes mellitus type: type 2 Diabetes mellitus complication status: without complication Diabetes mellitus care home insulin use: unspecified care home insulin use status Qualified Code(s): E11.9 - Type 2 diabetes mellitus without complications (4) Hyperosmolar syndrome Status: Acute Assessment and plan: Patient admitted with hyperglycemia, anion gap acidosis, ketonuria and glucosuria. Insulin drip improved glucose. -Hemoglobin A1c of 11, not taking any home diabetes meds -SSI as inpatient, will likely need insulin after discharge - Subjective Interval history: Seen and examined today at bedside, family present. Pt sitting on edge of bed eating lunch. Pt says she feels fine today, she has no complaints and is comfortable with being discharged. Denies: fever, chills, chest pain, dyspnea, cough, wheezing, abdominal pain, nausea, vomiting. - Constitutional Vitals: Temp Pulse Resp BP Pulse Ox 97.6 F 66 16 156/86 95 06/05/17 11:36 06/05/17 11:36 06/05/17 11:36 06/05/17 11:36 06/05/17 11:36 General appearance: Present: A&O X 3, pleasant, no acute distress, answers questions appropriately - Eye Eye exam: Present: EOMI, normal appearance - Neck Neck exam general surgery: Present: full ROM, supple - Respiratory Respiratory exam: Present: CTAB. Absent: rales, rhonchi, wheezes - Cardiovascular Cardiovascular exam: Present: RRR, +S1, +S2 Additional comments: no murmurs - Neurological Exam Neurological exam: Present: alert, oriented X3, no focal deficits. Absent: facial droop, speech deficit Additional comments: CN II-XII grossly intact - Psychiatric Psychiatric exam: Present: normal affect, normal mood Internal Medicine: Result - Labs CBC & Chem 7: 06/04/17 06:01 06/04/17 22:12 Labs: BMP 06/04/17 22:12 Sodium 138 Potassium 3.5 Chloride 105 Carbon Dioxide 26 BUN 13 Creatinine 0.86 Glucose 212 H Calcium 8.7 - ABG Interpretation ABG results: ABG ABG pH 7.45 pH Units (7.32-7.45) 05/31/17 22:09 ABG pCO2 32 mmHg (35-45) L 05/31/17 22:09 ABG pO2 65 mmHg (85-104) L 05/31/17 22:09 ABG O2 Saturation 94 % (95-98) L 05/31/17 22:09 PT/INR, D-dimer PT 10.9 Seconds (9.4-12.1) 05/31/17 15:50 Consult Discharge Plan - Plan Instructions: Acyclovir (By mouth), Peripherally Inserted Central Catheters and Midline Catheters (DC), Meal Planning with Diabetes Exchanges (DC) Referrals: Sujatha Decker, ASSISTANCE COORDINATOR [Advanced Practice Nurse] - 06/08/17 3:00 pm Prescriptions: Acyclovir [Zovirax] 600 mg IV Q8HR 5 Days #15 vial <Edwin Pena - Last Filed: 06/05/17 16:19> Date of Encounter: 06/05/17 - Constitutional Vitals: Temp Pulse Resp BP Pulse Ox 97.6 F 66 16 156/86 95 06/05/17 11:36 06/05/17 11:36 06/05/17 11:36 06/05/17 11:36 06/05/17 11:36 Internal Medicine: Result - Labs CBC & Chem 7: 06/04/17 06:01 06/04/17 22:12 Labs: BMP 06/04/17 22:12 Sodium 138 Potassium 3.5 Chloride 105 Carbon Dioxide 26 BUN 13 Creatinine 0.86 Glucose 212 H Calcium 8.7 - ABG Interpretation ABG results: ABG ABG pH 7.45 pH Units (7.32-7.45) 05/31/17 22:09 ABG pCO2 32 mmHg (35-45) L 05/31/17 22:09 ABG pO2 65 mmHg (85-104) L 05/31/17 22:09 ABG O2 Saturation 94 % (95-98) L 05/31/17 22:09 PT/INR, D-dimer PT 10.9 Seconds (9.4-12.1) 05/31/17 15:50 - Attending Attestation I personally interviewed and examined this patient. I agree with the findings, assessment, and plan of Dr. Lund. My input is reflected in her progress note. Patient was kept over 1 additional day. Please see discharge summary dictated yesterday. Patient stable for discharge. IV acyclovir infusion is arranged.
[2017-06-08 08:38] LABS: HSV 1 Glycoprotein G IgG CSF 0.52 IV (<=0.89)
[2017-06-09 14:49] LABS: Echovirus Antibody Type 11 CSF <1:10 (<1:10); Echovirus Antibody Type 7 CSF <1:10 (<1:10); Echovirus Antibody Type 9 CSF <1:10 (<1:10)
[2017-06-10 07:26] LABS: Echovirus Antibody Type 30 CSF <1:10 (<1:10)
[2017-06-10 15:07] LABS: HSV 2 Glycoprotein G IgG CSF 4.02 IV (<=0.89)
--- NOTE | 2017-07-06 19:33 | Event Note ---
Date of Encounter: 07/06/17 Time of Encounter: 19:30 This is not evidence of patient encounter. This chart was reviewed for documentation purposes at the request of the medical records department. Additional discharge diagnosis: Sepsis was ruled out during this admission.
== END 2017-06-05 13:34 | disposition home or self-care (01) | DRG 50 ==
LOC: EMEROO 14:49 → INTOOBSV 17:46 → 2NNU 17:46 → SUATTDRO 06-01 17:41
PROVIDERS: ADMIT Pediatrics; ATTEND Internal Medicine
PROC: IRLUMPX (2017-06-02 12:00)

== ENCOUNTER 2020-03-13 18:01 | Inpatient (IN) ==
[2020-03-13 19:10] LABS: Hematocrit 42.2 % (35.3-44.9); Hemoglobin 14.4 g/dL (11.5-15.4); Mean Corpuscular HGB Conc 34.1 g/dL (31.6-35.5); Mean Corpuscular Hemoglobin 29.1 pg (28.0-33.3); Mean Corpuscular Volume 85.4 fL (83.0-100.0); Mean Platelet Volume 9.4 fL (9.4-12.4); Platelet Count 192 K/mcL (140-400); Red Blood Count 4.94 M/mcL (3.82-4.97); Red Cell Distribution Width 13.9 % (11.5-14.5); White Blood Count 8.1 K/mcL (4.3-11.1)
[2020-03-13 19:15] LABS: Prothrombin Time 11.6 Seconds (9.4-12.1)
[2020-03-13] MEDS ORDERED: Isovue-370 500 ML BOTTLE IVP ONE (19:17)
[2020-03-13] MEDS ORDERED: 0.9 % Sodium Chloride 1,000 ML IVC ONE (19:17)
[2020-03-13] MEDS ORDERED: *HR* FentaNYL (PF) 100 MCG/2 ML VIAL IVP ONE (19:17)
[2020-03-13 19:18] LABS: Activated Partial Thrombo Time 31.1 Seconds (26.0-36.0)
[2020-03-13 19:32] LABS: BUN/Creatinine Ratio 22 (6-26); Blood Urea Nitrogen 20 mg/dL (6-20); Calcium 10.4 mg/dL (8.6-10.3); Carbon Dioxide 24 mEq/L (23-29); Chloride 101 mEq/L (98-107); Glucose 136 mg/dL (70-105); Osmolality,Calculated 287 (280-300); Potassium 3.6 mEq/L (3.5-5.1); Sodium 136 mEq/L (136-145); Troponin I < 0.03 ng/mL (< 0.04); eGFR For African Americans > 60 (> 60); eGFR For Non-African Americans > 60 (> 60)
[2020-03-13] MEDS ORDERED: Aspirin 81 MG TAB.CHEW PO STA (19:32)
[2020-03-13 21:29] LABS: Bacteria,Urine Few per hpf (None-Few); Bilirubin,Urine Negative (Negative); Blood,Urine Negative (Negative); Clarity,Urine Clear (Clear); Color,Urine Light-Yellow (Yellow); Glucose,Urine (UA) Normal (Normal); Ketones,Urine Negative (Negative); Leukocyte Esterase,Urine Trace (Negative); Nitrite,Urine Negative (Negative); PH,Urine 5.5 pH Units (5.0-8.0); Protein,Urine Negative (Neg-Trace); RBC,Urine 0-3 per hpf (0-3); Specific Gravity,Urine > 1.030 (1.010-1.025); Squamous Epithelial Cell,Urine Few per hpf (None-Few); Urobilinogen,Urine Normal (Normal); WBC,Urine 0-3 per hpf (0-3)
[2020-03-13 21:31] LABS: Amphetamine Screen,Urine Negative ng/mL (Cutoff=1000); Barbiturate Screen,Urine Negative ng/mL (Cutoff=200); Benzodiazepines Screen,Urine Negative ng/mL (Cutoff=200); Cannabinoid Screen,Urine Negative ng/mL (Cutoff = 50); Cocaine Screen,Urine Negative ng/mL (Cutoff= 300); Opiate Screen,Urine Negative ng/mL (Cutoff=300); Phencyclidine Screen,Urine Negative ng/mL (Cutoff=25)
[2020-03-13] MEDS ORDERED: Naloxone 0.4 MG/ML INJ IVP PRN (22:20)
[2020-03-13] MEDS ORDERED: *HR* Promethazine 25 MG/ML VIAL IVP PRN (22:20)
[2020-03-13] MEDS ORDERED: D5% in Water 1,000 ML IVC PRN (22:31)
[2020-03-13] MEDS ORDERED: Dextrose Gel 15 GM/37.5 ML TUBE PO PRN ×2 (22:31)
[2020-03-13] MEDS ORDERED: *HR* Dextrose 50 % in Water (Vial) 50 ML VIAL IVP PRN (22:31)
[2020-03-13] MEDS ORDERED: Loratadine 10 MG TABLET PO PRN (23:42)
[2020-03-14 01:22] LABS: Hematocrit 41.3 % (35.3-44.9); Hemoglobin 13.7 g/dL (11.5-15.4); Mean Corpuscular HGB Conc 33.2 g/dL (31.6-35.5); Mean Corpuscular Hemoglobin 27.6 pg (28.0-33.3); Mean Corpuscular Volume 83.1 fL (83.0-100.0); Mean Platelet Volume 8.8 fL (9.4-12.4); Platelet Count 193 K/mcL (140-400); Red Blood Count 4.97 M/mcL (3.82-4.97); Red Cell Distribution Width 13.8 % (11.5-14.5); White Blood Count 10.9 K/mcL (4.3-11.1)
[2020-03-14 01:45] LABS: Alanine Aminotransferase 29 Units/L (7-52); Albumin 4.4 g/dL (3.5-5.7); Alkaline Phosphatase 71 Units/L (34-104); Aspartate Amino Transferase 23 Units/L (13-39); BUN/Creatinine Ratio 22 (6-26); Bilirubin,Total 0.6 mg/dL (0.3-1.0); Blood Urea Nitrogen 17 mg/dL (6-20); Calcium 9.9 mg/dL (8.6-10.3); Carbon Dioxide 19 mEq/L (23-29); Chloride 102 mEq/L (98-107); Chol/HDL Ratio 3.9 (0-4.9); Cholesterol 151 mg/dL (< 200); Globulin 2.2 g/dL (2.4-3.5); Glucose 206 mg/dL (70-105); HDL Cholesterol 39 mg/dL (40-59); LDL Cholesterol,Calculated 93 mg/dL (< 100); Magnesium 1.6 mg/dL (1.6-2.6); Osmolality,Calculated 284 (280-300); Potassium 4.2 mEq/L (3.5-5.1); Sodium 133 mEq/L (136-145); Total Protein 6.6 g/dL (6.4-8.9); Triglycerides 94 mg/dL (< 150); eGFR For African Americans > 60 (> 60); eGFR For Non-African Americans > 60 (> 60)
[2020-03-14] MEDS: Acetaminophen 325 MG TABLET PO PRN ×2 (01:49→19:44)
[2020-03-14] MEDS: Insulin LISPRO 300 UNITS/3 ML VIAL SQ SCH ×6 (01:54→19:47)
[2020-03-14 01:57] LABS: Thyroid Stimulating Hormone 0.277 mcIU/mL (0.340-5.600)
[2020-03-14] MEDS ORDERED: Perflutren Lipid Microsphere 1.3 ML in 0.9 % Sodium Chloride 8.7 ML IVP PRN (02:38)
[2020-03-14 04:37] LABS: Estimated Average Glucose 157 mg/dl
[2020-03-14] MEDS: Aspirin 325 MG TABLET PO SCH (08:33)
[2020-03-15] MEDS: Acetaminophen 325 MG TABLET PO PRN ×2 (01:42→18:43)
[2020-03-15 03:26] LABS: BUN/Creatinine Ratio 18 (6-26); Blood Urea Nitrogen 13 mg/dL (6-20); Calcium 9.7 mg/dL (8.6-10.3); Carbon Dioxide 21 mEq/L (23-29); Chloride 102 mEq/L (98-107); Glucose 178 mg/dL (70-105); Magnesium 1.7 mg/dL (1.6-2.6); Osmolality,Calculated 281 (280-300); Phosphorous 3.2 mg/dL (2.7-4.5); Potassium 3.6 mEq/L (3.5-5.1); Sodium 133 mEq/L (136-145); eGFR For African Americans > 60 (> 60); eGFR For Non-African Americans > 60 (> 60)
[2020-03-15] MEDS: Aspirin 325 MG TABLET PO SCH (08:58)
[2020-03-15] MEDS: Insulin LISPRO 300 UNITS/3 ML VIAL SQ SCH ×4 (08:58→19:37)
[2020-03-15 13:17] LABS: Adenovirus Not Detected (Not Detect); Bordetella Pertussis Not Detected (Not Detect); Chlamydophila pneumoniae Not Detected (Not Detect); Coronavirus 229E Not Detected (Not Detect); Coronavirus HKU1 Not Detected (Not Detect); Coronavirus NL63 Not Detected (Not Detect); Coronavirus OC43 Not Detected (Not Detect); Human Metapneumovirus Not Detected (Not Detect); Human Rhinovirus/Enterovirus Not Detected (Not Detect); Influenza A Subtype 2009 H1 Not Detected (Not Detect); Influenza B Not Detected (Not Detect); Mycoplasma pneumoniae Not Detected (Not Detect); Parainfluenza Virus 1 Not Detected (Not Detect); Parainfluenza Virus 2 Not Detected (Not Detect); Parainfluenza Virus 3 Not Detected (Not Detect); Parainfluenza Virus 4 Not Detected (Not Detect); Respiratory Syncytial Virus Not Detected (Not Detect); SARS-CoV-2 Not Detected (Not Detect)
[2020-03-16] MEDS: Aspirin 325 MG TABLET PO SCH (07:54)
[2020-03-16] MEDS: Insulin LISPRO 300 UNITS/3 ML VIAL SQ SCH ×4 (07:55→20:10)
[2020-03-17] MEDS: Acetaminophen 325 MG TABLET PO PRN (01:32)
[2020-03-17] MEDS: Aspirin 325 MG TABLET PO SCH (07:42)
[2020-03-17] MEDS: lisinopriL 10 MG TABLET PO SCH (07:42)
[2020-03-17] MEDS: Insulin LISPRO 300 UNITS/3 ML VIAL SQ SCH ×4 (07:42→20:52)
[2020-03-17] MEDS ORDERED: *HR* OxyCODONE/APAP 7.5/325 TABLET PO ONE (17:54)
[2020-03-18] MEDS: Acetaminophen 325 MG TABLET PO PRN ×2 (00:08→06:14)
[2020-03-18] MEDS: Aspirin 325 MG TABLET PO SCH (08:02)
[2020-03-18] MEDS: lisinopriL 10 MG TABLET PO SCH (08:02)
[2020-03-18] MEDS: Insulin LISPRO 300 UNITS/3 ML VIAL SQ SCH ×4 (08:03→20:38)
[2020-03-18] MEDS ORDERED: *HR* OxyCODONE/APAP 5/325 TABLET PO ONE (12:41)
[2020-03-19] MEDS: Insulin LISPRO 300 UNITS/3 ML VIAL SQ SCH ×2 (07:53→12:26)
[2020-03-19] MEDS: Aspirin 325 MG TABLET PO SCH (07:53)
[2020-03-19] MEDS: Acetaminophen 325 MG TABLET PO PRN (07:53)
[2020-03-19] MEDS: lisinopriL 10 MG TABLET PO SCH (07:53)
[2020-03-19] MEDS ORDERED: *HR* OxyCODONE/APAP 5/325 TABLET PO ONE (08:03)
[2020-03-19 11:53] VITALS: BP 145/79
== END 2020-03-19 13:00 | DRG 45 ==
LOC: 3BNU 18:01 → EMEROOARM 18:01 → 3BNU 22:14 → SUATTDRO 22:20
PROVIDERS: ADMIT Family Medicine; ATTEND Internal Medicine

== ENCOUNTER 2020-05-02 08:25 | Inpatient (IN) ==
[2020-05-02] MEDS ORDERED: Cefepime HCl 1,000 MG in Water for inj. (sterile) 10 ML IVPB STA (08:35)
[2020-05-02] MEDS ORDERED: Albuterol 2.5 MG/3 ML NEBULIZER IH ONE (08:38)
[2020-05-02] MEDS ORDERED: Dexamethasone Sodium Phos/PF 10 MG/ML VIAL IVP ONE (08:38)
[2020-05-02] MEDS ORDERED: Ipratropium 1 PUFF INHALER IH SCH (08:45)
[2020-05-02] MEDS ORDERED: Vancomycin 1,500 MG/265 ML IV.SOLN IVPB ONE (08:47)
[2020-05-02 08:59] LABS: Hematocrit 48.9 % (35.3-44.9); Hemoglobin 15.6 g/dL (11.5-15.4); Mean Corpuscular HGB Conc 31.9 g/dL (31.6-35.5); Mean Corpuscular Hemoglobin 27.4 pg (28.0-33.3); Mean Corpuscular Volume 85.8 fL (83.0-100.0); Mean Platelet Volume 12.1 fL (9.4-12.4); Platelet Count 211 K/mcL (140-400); Red Cell Distribution Width 14.8 % (11.5-14.5)
[2020-05-02] MEDS ORDERED: Ipratropium/Albuterol Neb 3 ML IH ONE (09:11)
[2020-05-02 09:19] LABS: Anisocytosis 1+ (Not Present); Lymphocytes # 1.6 K/mcL (0.6-4.6); Monocytes # 2.1 K/mcL (0.0-1.3); Neutrophils # 22.4 K/mcL (1.6-8.9); Platelet Estimate Normal (Normal); Toxic Granulation Present (Not Present); Toxic Vacuolation Present (Not Present)
[2020-05-02 09:20] LABS: Burr Cells 1+ (Not Present)
[2020-05-02 09:30] LABS: Calcium 9.6 mg/dL (8.6-10.3); Potassium 3.4 mEq/L (3.5-5.1); Troponin I 0.12 ng/mL (< 0.04)
[2020-05-02] MEDS ORDERED: 0.9 % Sodium Chloride 250 ML IVC PRN (09:36)
[2020-05-02] MEDS ORDERED: Aspirin 81 MG TAB.CHEW PO ONE (09:38)
[2020-05-02 09:39] LABS: VBG HCO3 28 mEq/L (21-27); VBG PCO2 44 mmHg (41-51); VBG PO2 45 mmHg (25-50)
[2020-05-02] MEDS ORDERED: Ondansetron 4 MG/2 ML VIAL IVP PRN (09:57)
[2020-05-02] MEDS ORDERED: Naloxone 0.4 MG/ML INJ IVP PRN (09:57)
[2020-05-02] MEDS ORDERED: *HR* Heparin 5,000 UNIT/ML VIAL IVP PRN ×2 (10:03)
[2020-05-02] MEDS ORDERED: *HR* Heparin 5,000 UNIT/ML VIAL IVP ONE (10:03)
[2020-05-02] MEDS ORDERED: Perflutren Lipid Microsphere 1.3 ML in 0.9 % Sodium Chloride 8.7 ML IVP PRN (10:04)
[2020-05-02 10:25] LABS: INR 1.3; Prothrombin Time 14.4 Seconds (9.4-12.1)
[2020-05-02] MEDS: 0.9 % Sodium Chloride 1,000 ML IVC SCH ×2 (10:37→12:45)
[2020-05-02] MEDS ORDERED: 0.9 % Sodium Chloride 1,000 ML IVC ONE (10:45)
[2020-05-02 11:05] LABS: ABG Base Excess 1 mEq/L (-2 to 3); ABG HCO3 24 mEq/L (21-27); ABG Oxygen Saturation 97 % (95-98); ABG PCO2 34 mmHg (35-45); ABG PH 7.45 pH Units (7.32-7.45); ABG PO2 85 mmHg (85-104); ABG TCO2 25 mEq/L (20-26)
[2020-05-02] MEDS: Heparin 25,000UNIT/250ML 1/2NS 25,000 UNIT/250 ML IV.SOLN IVC SCH ×2 (11:26→16:40)
[2020-05-02] MEDS: Ipratropium/Albuterol Neb 3 ML IH SCH ×3 (11:29→20:05)
[2020-05-02] MEDS ORDERED: D5% in Water 1,000 ML IVC PRN (11:39)
[2020-05-02] MEDS ORDERED: Dextrose Gel 15 GM/37.5 ML TUBE PO PRN ×2 (11:39)
[2020-05-02] MEDS ORDERED: *HR* Dextrose 50 % in Water (Vial) 50 ML VIAL IVP PRN (11:39)
[2020-05-02] MEDS ORDERED: levoFLOXacin 750 MG/150 ML 750 MG/150 ML BAG IVPB SCH (12:00)
[2020-05-02] MEDS: Insulin DETEMIR 100 UNIT/ML X5UNITS SQ SCH ×2 (12:44→21:23)
[2020-05-02] MEDS ORDERED: Insulin LISPRO 300 UNITS/3 ML VIAL SQ SCH (16:30)
[2020-05-02] MEDS: MethylPREDNISolone 40 MG/ML VIAL IVP SCH ×2 (16:41→23:47)
[2020-05-02] MEDS ORDERED: Cefepime HCl 1,000 MG in Water for inj. (sterile) 10 ML IVP SCH (18:00)
[2020-05-02] MEDS ORDERED: Insulin LISPRO 300 UNITS/3 ML VIAL SQ ONE (21:34)
[2020-05-02] MEDS ORDERED: *HR* Metoprolol 5 MG/5 ML VIAL IVP PRN (23:28)
[2020-05-03] MEDS: Levalbuterol Neb 1.25 MG/3 ML IH SCH ×6 (00:16→19:45)
[2020-05-03] MEDS: Ringers Solution, Lactated 1,000 ML IVC SCH ×8 (00:50→23:28)
[2020-05-03] MEDS ORDERED: Insulin LISPRO 300 UNITS/3 ML VIAL SQ ONE ×3 (00:52→21:31)
[2020-05-03 02:00] LABS: Bilirubin,Urine Small (Negative); Blood,Urine Large (Negative); Clarity,Urine Cloudy (Clear); Color,Urine Yellow (Yellow); Glucose,Urine (UA) Normal (Normal); Ketones,Urine Trace mg/dL (Negative); Leukocyte Esterase,Urine Large (Negative); Nitrite,Urine Negative (Negative); PH,Urine 5.5 pH Units (5.0-8.0); Protein,Urine 100 mg/dL (Neg-Trace); Specific Gravity,Urine >= 1.030 (1.010-1.025); Urobilinogen,Urine Normal (Normal)
[2020-05-03 02:02] LABS: Bacteria,Urine Many per hpf (None-Few); Budding Yeast,Urine Many per hpf (None Seen); Squamous Epithelial Cell,Urine Few per hpf (None-Few); WBC,Urine 50-100 per hpf (0-3)
[2020-05-03 02:19] LABS: Basophils % 0.2 %; Hematocrit 32.8 % (35.3-44.9); Hemoglobin 10.4 g/dL (11.5-15.4); Immature Granulocytes % 1.5 % (0-4); Lymphocytes # 0.8 K/mcL (0.6-4.6); Mean Corpuscular HGB Conc 31.7 g/dL (31.6-35.5); Mean Corpuscular Hemoglobin 27.3 pg (28.0-33.3); Mean Corpuscular Volume 86.1 fL (83.0-100.0); Mean Platelet Volume 12.9 fL (9.4-12.4); Neutrophils # 18.7 K/mcL (1.6-8.9); Platelet Count 139 K/mcL (140-400); Red Blood Count 3.81 M/mcL (3.82-4.97); Red Cell Distribution Width 14.6 % (11.5-14.5); Segmented Neutrophils % 89.3 %; White Blood Count 20.9 K/mcL (4.3-11.1)
[2020-05-03 02:49] LABS: Blood Urea Nitrogen > 130 mg/dL (6-20); Calcium 8.3 mg/dL (8.6-10.3); Carbon Dioxide 19 mEq/L (23-29); Chloride 108 mEq/L (98-107); Magnesium 1.9 mg/dL (1.6-2.6); Potassium 4.4 mEq/L (3.5-5.1); Sodium 141 mEq/L (136-145); eGFR For African Americans 29 (> 60); eGFR For Non-African Americans 24 (> 60)
[2020-05-03 02:51] LABS: Glucose 568 mg/dL (70-105)
[2020-05-03] MEDS ORDERED: D5% in 0.45% NACL 1,000 ML IVC PRN (02:58)
[2020-05-03] MEDS ORDERED: D5% in 0.45% NACL w KCl 20 MEQ/1,000 ML MLS IVC PRN (02:58)
[2020-05-03] MEDS ORDERED: *HR* Dextrose 50 % in Water (Vial) 50 ML VIAL IVP PRN ×2 (02:58→14:26)
[2020-05-03] MEDS ORDERED: Insulin LISPRO 300 UNITS/3 ML VIAL SQ PRN (02:58)
[2020-05-03] MEDS: 0.45 % Sodium Chloride w/KCl 20 MEQ/1,000 ML MLS IVC SCH ×4 (04:47→12:35)
[2020-05-03] MEDS: Insulin Human Regular 100 UNIT in 0.9 % Sodium Chloride 100 ML IVC SCH ×3 (04:47→12:42)
[2020-05-03] MEDS ORDERED: Pantoprazole 40 MG VIAL IVP SCH (06:00)
[2020-05-03 06:53] LABS: Hematocrit 32.5 % (35.3-44.9); Hemoglobin 10.2 g/dL (11.5-15.4)
[2020-05-03 06:57] LABS: Activated Partial Thrombo Time 44.1 Seconds (26.0-36.0)
[2020-05-03 07:03] LABS: Albumin 2.4 g/dL (3.5-5.7); Albumin/Globulin Ratio 1.1 (1.1-2.2); Bilirubin,Direct 0.2 mg/dL (0.0-0.2); Bilirubin,Indirect 0.3 mg/dL (0.0-1.0); Bilirubin,Total 0.5 mg/dL (0.3-1.0); Globulin 2.1 g/dL (2.4-3.5); Total Protein 4.5 g/dL (6.4-8.9)
[2020-05-03 07:09] LABS: Prothrombin Time 22.2 Seconds (9.4-12.1)
[2020-05-03] MEDS ORDERED: 0.9 % Sodium Chloride 500 ML IVC ONE (07:34)
[2020-05-03] MEDS: 0.9 % Sodium Chloride 1,000 ML IVC SCH ×3 (07:38→12:34)
[2020-05-03] MEDS: MethylPREDNISolone 40 MG/ML VIAL IVP SCH (07:59)
[2020-05-03] MEDS: Pantoprazole 40 MG in 0.9 % Sodium Chloride Mini Bag 100 ML IVC SCH ×4 (08:00→22:08)
[2020-05-03 08:12] LABS: Basophils % 0.1 %; Hemoglobin 10.5 g/dL (11.5-15.4); Immature Granulocytes % 1.4 % (0-4); Immature Platelets 11.4 % (1.1-6.1); Lymphocytes # 0.8 K/mcL (0.6-4.6); Lymphocytes % 3.9 %; Mean Corpuscular HGB Conc 30.9 g/dL (31.6-35.5); Mean Corpuscular Hemoglobin 28.1 pg (28.0-33.3); Mean Corpuscular Volume 90.9 fL (83.0-100.0); Mean Platelet Volume 13.1 fL (9.4-12.4); Monocytes % 4.7 %; Neutrophils # 18.8 K/mcL (1.6-8.9); Platelet Count 142 K/mcL (140-400); Red Blood Count 3.74 M/mcL (3.82-4.97); Red Cell Distribution Width 14.5 % (11.5-14.5); Segmented Neutrophils % 89.9 %; White Blood Count 20.9 K/mcL (4.3-11.1)
[2020-05-03] MEDS ORDERED: Metoclopramide 10 MG/2 ML VIAL IVP ONE (08:13)
[2020-05-03 08:32] LABS: ABG Base Excess -7 mEq/L (-2 to 3); ABG HCO3 16 mEq/L (21-27); ABG Oxygen Saturation 92 % (95-98); ABG PCO2 24 mmHg (35-45); ABG PH 7.44 pH Units (7.32-7.45); ABG PO2 60 mmHg (85-104); ABG TCO2 17 mEq/L (20-26)
[2020-05-03] MEDS ORDERED: Albumin 25% 25gram/100mL 25 GM/100 ML IV.SOLN IVPB ONE (08:46)
[2020-05-03] MEDS ORDERED: Dexamethasone 4 MG/ML VIAL IVP SCH (09:00)
[2020-05-03 10:20] LABS: Hematocrit 30.7 % (35.3-44.9); Hemoglobin 9.9 g/dL (11.5-15.4)
[2020-05-03 10:37] LABS: Blood Urea Nitrogen > 130 mg/dL (6-20); Calcium 8.2 mg/dL (8.6-10.3); Carbon Dioxide 18 mEq/L (23-29); Chloride 111 mEq/L (98-107); Glucose 348 mg/dL (70-105); Potassium 3.9 mEq/L (3.5-5.1); Sodium 142 mEq/L (136-145); eGFR For African Americans 26 (> 60); eGFR For Non-African Americans 21 (> 60)
[2020-05-03] MEDS ORDERED: Insulin Human Regular 100 UNIT in 0.9 % Sodium Chloride 100 ML IVC SCH (11:30)
[2020-05-03] MEDS: Norepinephrine 4 MG/254 ML IV.SOLN IVC SCH ×4 (11:31→21:32)
[2020-05-03] MEDS ORDERED: Artificial Tears SOLN 15 ML BOTTLE BOTH EYES PRN (12:12)
[2020-05-03] MEDS: 0.9 % Sodium Chloride w KCl 20 MEQ/1,000 ML MLS IVC SCH (12:34)
[2020-05-03] MEDS: FentaNYL (PF) 1,000 MCG/100 ML IV.SOLN IVC SCH ×3 (12:36→23:39)
[2020-05-03] MEDS: Dexmedetomidine HCl 400 MCG/100 ML MLS IVC SCH (12:38)
[2020-05-03] MEDS ORDERED: Perflutren Lipid Microsphere 1.3 ML in 0.9 % Sodium Chloride 8.7 ML IVP PRN (12:48)
[2020-05-03] MEDS ORDERED: *HR* Midazolam HCl 2 MG/2 ML VIAL IVP PRN (13:10)
[2020-05-03] MEDS: Cefepime HCl 1,000 MG in Water for inj. (sterile) 10 ML IVP SCH ×2 (14:13→21:09)
[2020-05-03] MEDS ORDERED: *HR* Midazolam HCl 2 MG/2 ML VIAL IVP ONE (14:17)
[2020-05-03] MEDS ORDERED: *HR* Etomidate 40 MG/20 ML VIAL IVP ONE (14:17)
[2020-05-03] MEDS ORDERED: *HR* Midazolam HCl 5 MG/5 ML VIAL IVP ONE (14:17)
[2020-05-03] MEDS ORDERED: D5% in Water 1,000 ML IVC PRN (14:26)
[2020-05-03] MEDS ORDERED: Dextrose Gel 15 GM/37.5 ML TUBE PO PRN ×2 (14:26)
[2020-05-03] MEDS: *HR* Midazolam HCl 2 MG/2 ML VIAL IVP PRN (14:31)
[2020-05-03 14:32] LABS: ABG Base Excess -7 mEq/L (-2 to 3); ABG HCO3 21 mEq/L (21-27); ABG Oxygen Saturation 92 % (95-98); ABG PCO2 53 mmHg (35-45); ABG PH 7.21 pH Units (7.32-7.45); ABG PO2 79 mmHg (85-104); ABG TCO2 23 mEq/L (20-26); Blood Gas Modality ASSIST CONTROL; Blood Gas VT 430 cc
[2020-05-03] MEDS: Albumin Human 5% 12.5 GM/250 ML IV.SOLN IVC SCH ×2 (14:38→16:00)
[2020-05-03] MEDS: Vasopressin 40 UNIT in D5% in Water 100 ML IVC SCH (14:45)
[2020-05-03] MEDS: Artificial Tears SOLN 15 ML BOTTLE BOTH EYES SCH ×3 (15:00→23:23)
[2020-05-03] MEDS: MetroNIDAZOLE 500 MG/100 ML 500 MG/100 ML BAG IVPB SCH ×2 (15:00→23:27)
[2020-05-03] MEDS: Insulin LISPRO 300 UNITS/3 ML VIAL SQ SCH ×3 (15:21→23:23)
[2020-05-03 15:29] LABS: Blood Urea Nitrogen > 130 mg/dL (6-20); Calcium 8.1 mg/dL (8.6-10.3); Carbon Dioxide 22 mEq/L (23-29); Chloride 115 mEq/L (98-107); Glucose 132 mg/dL (70-105); Potassium 5.2 mEq/L (3.5-5.1); Sodium 144 mEq/L (136-145); eGFR For African Americans 29 (> 60); eGFR For Non-African Americans 24 (> 60)
[2020-05-03 15:44] LABS: Sodium, Urine 30.5 mEq/L
[2020-05-03 16:21] LABS: Basophils # 0.1 K/mcL (0.0-0.2); Basophils % 0.1 %; Hemoglobin 8.6 g/dL (11.5-15.4); Immature Granulocytes % 3.8 % (0-4); Lymphocytes # 2.5 K/mcL (0.6-4.6); Lymphocytes % 5.1 %; Mean Corpuscular HGB Conc 30.7 g/dL (31.6-35.5); Mean Corpuscular Hemoglobin 27.4 pg (28.0-33.3); Mean Corpuscular Volume 89.2 fL (83.0-100.0); Mean Platelet Volume 12.9 fL (9.4-12.4); Monocytes # 3.9 K/mcL (0.0-1.3); Monocytes % 7.9 %; Nucleated Red Blood Cells 0.1 /100 WBC (0); Platelet Count 213 K/mcL (140-400); Red Blood Count 3.14 M/mcL (3.82-4.97); Segmented Neutrophils % 83.1 %
[2020-05-03 16:23] LABS: Neutrophils # 41.2 K/mcL (1.6-8.9)
[2020-05-03 16:24] LABS: White Blood Count 49.6 K/mcL (4.3-11.1)
[2020-05-03 16:28] LABS: Platelet Estimate Normal (Normal)
[2020-05-03 16:55] LABS: ABG Base Excess -6 mEq/L (-2 to 3); ABG HCO3 20 mEq/L (21-27); ABG Oxygen Saturation 100 % (95-98); ABG PCO2 37 mmHg (35-45); ABG PH 7.34 pH Units (7.32-7.45); ABG PO2 176 mmHg (85-104); ABG TCO2 21 mEq/L (20-26); Blood Gas Modality ASSIST CONTROL; Blood Gas VT 430 cc
[2020-05-03] MEDS: Chlorhexidine Rinse 15 ML MOUTHWASH MM SCH (19:39)
[2020-05-03 23:25] LABS: Hemoglobin 8.2 g/dL (11.5-15.4)
[2020-05-03 23:27] LABS: Hematocrit 27.3 % (35.3-44.9); Mean Corpuscular Hemoglobin 27.2 pg (28.0-33.3); Mean Corpuscular Volume 90.7 fL (83.0-100.0); Platelet Count 230 K/mcL (140-400); Red Blood Count 3.01 M/mcL (3.82-4.97); Red Cell Distribution Width 15.2 % (11.5-14.5)
[2020-05-03 23:42] LABS: White Blood Count 60.9 K/mcL (4.3-11.1)
[2020-05-04 00:08] LABS: Lymphocytes # 2.4 K/mcL (0.6-4.6); Monocytes # 2.4 K/mcL (0.0-1.3)
[2020-05-04 00:09] LABS: Burr Cells 1+ (Not Present); Platelet Estimate Normal (Normal)
[2020-05-04] MEDS: Norepinephrine 4 MG/254 ML IV.SOLN IVC SCH ×5 (00:09→11:57)
[2020-05-04] MEDS: Levalbuterol Neb 1.25 MG/3 ML IH SCH ×2 (00:32→04:07)
[2020-05-04] MEDS: Pantoprazole 40 MG in 0.9 % Sodium Chloride Mini Bag 100 ML IVC SCH ×5 (03:01→21:45)
[2020-05-04] MEDS: Artificial Tears SOLN 15 ML BOTTLE BOTH EYES SCH ×6 (03:27→23:33)
[2020-05-04] MEDS: Insulin LISPRO 300 UNITS/3 ML VIAL SQ SCH ×6 (03:28→23:33)
[2020-05-04 03:45] LABS: Mean Corpuscular Volume 88.6 fL (83.0-100.0)
[2020-05-04 03:46] LABS: Hematocrit 24.2 % (35.3-44.9); Hemoglobin 7.6 g/dL (11.5-15.4); Mean Corpuscular HGB Conc 31.4 g/dL (31.6-35.5); Mean Corpuscular Hemoglobin 27.8 pg (28.0-33.3); Mean Platelet Volume 12.8 fL (9.4-12.4); Nucleated Red Blood Cells 0.1 /100 WBC (0); Platelet Count 193 K/mcL (140-400); Red Blood Count 2.73 M/mcL (3.82-4.97); Red Cell Distribution Width 15.3 % (11.5-14.5)
[2020-05-04 04:12] LABS: Calcium 7.8 mg/dL (8.6-10.3); Potassium 4.7 mEq/L (3.5-5.1)
[2020-05-04 04:58] LABS: Lymphocytes # 3.7 K/mcL (0.6-4.6); Monocytes # 1.8 K/mcL (0.0-1.3); Neutrophils # 40.5 K/mcL (1.6-8.9)
[2020-05-04 04:59] LABS: Burr Cells 1+ (Not Present); Platelet Estimate Normal (Normal)
[2020-05-04 05:08] LABS: ABG Base Excess -5 mEq/L (-2 to 3); ABG HCO3 21 mEq/L (21-27); ABG Oxygen Saturation 96 % (95-98); ABG PCO2 40 mmHg (35-45); ABG PH 7.33 pH Units (7.32-7.45); ABG PO2 90 mmHg (85-104); ABG TCO2 22 mEq/L (20-26); Blood Gas Modality ASSIST CONTROL; Blood Gas VT 430 cc
[2020-05-04] MEDS: FentaNYL (PF) 1,000 MCG/100 ML IV.SOLN IVC SCH ×4 (05:10→19:46)
[2020-05-04] MEDS: Cefepime HCl 1,000 MG in Water for inj. (sterile) 10 ML IVP SCH ×3 (05:17→21:22)
[2020-05-04] MEDS: Metoclopramide 10 MG/2 ML VIAL IVP SCH (05:25)
[2020-05-04] MEDS: Ringers Solution, Lactated 1,000 ML IVC SCH ×4 (07:19→20:10)
[2020-05-04] MEDS: MetroNIDAZOLE 500 MG/100 ML 500 MG/100 ML BAG IVPB SCH ×3 (07:24→23:35)
[2020-05-04] MEDS: Chlorhexidine Rinse 15 ML MOUTHWASH MM SCH ×2 (07:26→19:44)
[2020-05-04] MEDS: Dexmedetomidine HCl 400 MCG/100 ML MLS IVC SCH (07:28)
[2020-05-04] MEDS: Ipratropium 1 PUFF INHALER IH SCH ×5 (07:54→23:46)
[2020-05-04 08:26] LABS: INR 1.5; Prothrombin Time 17.5 Seconds (9.4-12.1)
[2020-05-04] MEDS ORDERED: MethylPREDNISolone 40 MG/ML VIAL IVP SCH (09:00)
[2020-05-04] MEDS: Vasopressin 40 UNIT in D5% in Water 100 ML IVC SCH (10:07)
[2020-05-04] MEDS: Dexamethasone Sodium Phos/PF 10 MG/ML VIAL IVP SCH (11:11)
[2020-05-04 11:36] LABS: Hematocrit 29.1 % (35.3-44.9)
[2020-05-04 11:37] LABS: Hemoglobin 9.2 g/dL (11.5-15.4)
[2020-05-04] MEDS: Nystatin POWDER 30 GM BOTTLE TP SCH ×3 (11:40→20:14)
[2020-05-04 16:37] LABS: Hematocrit 28.1 % (35.3-44.9)
[2020-05-04] MEDS: *HR* Midazolam HCl 2 MG/2 ML VIAL IVP PRN (16:47)
[2020-05-04] MEDS ORDERED: Insulin DETEMIR 100 UNIT/ML X5UNITS SQ SCH (22:15)
[2020-05-05 00:23] LABS: Hematocrit 26.7 % (35.3-44.9); Hemoglobin 8.6 g/dL (11.5-15.4)
[2020-05-05] MEDS: FentaNYL (PF) 1,000 MCG/100 ML IV.SOLN IVC SCH ×3 (01:20→20:45)
[2020-05-05] MEDS: Ringers Solution, Lactated 1,000 ML IVC SCH ×3 (01:30→11:54)
[2020-05-05] MEDS: Pantoprazole 40 MG in 0.9 % Sodium Chloride Mini Bag 100 ML IVC SCH ×5 (02:49→23:19)
[2020-05-05] MEDS: Ipratropium 1 PUFF INHALER IH SCH ×6 (03:34→23:30)
[2020-05-05] MEDS: Insulin LISPRO 300 UNITS/3 ML VIAL SQ SCH ×6 (04:42→23:51)
[2020-05-05] MEDS: Artificial Tears SOLN 15 ML BOTTLE BOTH EYES SCH ×6 (04:42→23:22)
[2020-05-05 05:01] LABS: ABG Base Excess -1 mEq/L (-2 to 3); ABG HCO3 24 mEq/L (21-27); ABG Oxygen Saturation 96 % (95-98); ABG PCO2 40 mmHg (35-45); ABG PH 7.38 pH Units (7.32-7.45); ABG PO2 85 mmHg (85-104); ABG TCO2 25 mEq/L (20-26); Blood Gas Modality ASSIST CONTROL; Blood Gas VT 400 cc
[2020-05-05 05:12] LABS: Hemoglobin 8.5 g/dL (11.5-15.4); Mean Corpuscular Volume 85.7 fL (83.0-100.0); Mean Platelet Volume 13.2 fL (9.4-12.4); Nucleated Red Blood Cells 0.1 /100 WBC (0); Red Cell Distribution Width 16.7 % (11.5-14.5)
[2020-05-05 05:14] LABS: Basophils % 0.2 %; Hematocrit 26.9 % (35.3-44.9); Immature Granulocytes % 3.6 % (0-4); Immature Platelets 10.9 % (1.1-6.1); Lymphocytes # 0.9 K/mcL (0.6-4.6); Lymphocytes % 5.7 %; Mean Corpuscular HGB Conc 31.6 g/dL (31.6-35.5); Mean Corpuscular Hemoglobin 27.1 pg (28.0-33.3); Monocytes # 0.8 K/mcL (0.0-1.3); Monocytes % 5.1 %; Neutrophils # 13.4 K/mcL (1.6-8.9); Red Blood Count 3.14 M/mcL (3.82-4.97); Segmented Neutrophils % 85.4 %; White Blood Count 15.7 K/mcL (4.3-11.1)
[2020-05-05 05:16] LABS: VBG Ionized Calcium 1.33 mmol/L (1.15-1.35)
[2020-05-05 05:17] LABS: Platelet Count 79 K/mcL (140-400)
[2020-05-05 05:36] LABS: Alanine Aminotransferase 23 Units/L (7-52); Albumin 2.4 g/dL (3.5-5.7); Albumin/Globulin Ratio 1.3 (1.1-2.2); Alkaline Phosphatase 65 Units/L (34-104); Aspartate Amino Transferase 15 Units/L (13-39); BUN/Creatinine Ratio 93 (6-26); Bilirubin,Direct 0.2 mg/dL (0.0-0.2); Bilirubin,Indirect 0.3 mg/dL (0.0-1.0); Bilirubin,Total 0.5 mg/dL (0.3-1.0); Blood Urea Nitrogen 75 mg/dL (6-20); Calcium 8.4 mg/dL (8.6-10.3); Carbon Dioxide 23 mEq/L (23-29); Chloride 120 mEq/L (98-107); Globulin 1.8 g/dL (2.4-3.5); Glucose 221 mg/dL (70-105); Magnesium 1.7 mg/dL (1.6-2.6); Osmolality,Calculated 331 (280-300); Phosphorous 2.9 mg/dL (2.7-4.5); Potassium 4.8 mEq/L (3.5-5.1); Sodium 146 mEq/L (136-145); Total Protein 4.2 g/dL (6.4-8.9); eGFR For African Americans > 60 (> 60); eGFR For Non-African Americans > 60 (> 60)
[2020-05-05] MEDS: Norepinephrine 4 MG/254 ML IV.SOLN IVC SCH (06:00)
[2020-05-05] MEDS: Cefepime HCl 1,000 MG in Water for inj. (sterile) 10 ML IVP SCH ×2 (06:02→12:59)
[2020-05-05] MEDS: Metoclopramide 10 MG/2 ML VIAL IVP SCH (06:07)
[2020-05-05] MEDS: Insulin DETEMIR 100 UNIT/ML X5UNITS SQ SCH ×2 (07:59→19:56)
[2020-05-05] MEDS: MetroNIDAZOLE 500 MG/100 ML 500 MG/100 ML BAG IVPB SCH ×3 (08:25→23:17)
[2020-05-05] MEDS: Chlorhexidine Rinse 15 ML MOUTHWASH MM SCH ×2 (08:25→19:53)
[2020-05-05] MEDS: Dexamethasone Sodium Phos/PF 10 MG/ML VIAL IVP SCH (08:26)
[2020-05-05] MEDS: Nystatin POWDER 30 GM BOTTLE TP SCH ×3 (09:48→20:21)
[2020-05-05 11:20] LABS: Hematocrit 27.5 % (35.3-44.9); Hemoglobin 8.8 g/dL (11.5-15.4); Mean Corpuscular Hemoglobin 27.5 pg (28.0-33.3); Mean Corpuscular Volume 85.9 fL (83.0-100.0); Mean Platelet Volume 12.8 fL (9.4-12.4); Nucleated Red Blood Cells 0.2 /100 WBC (0); Platelet Count 103 K/mcL (140-400); Red Cell Distribution Width 16.8 % (11.5-14.5); White Blood Count 19.5 K/mcL (4.3-11.1)
[2020-05-05] MEDS: Vasopressin 40 UNIT in D5% in Water 100 ML IVC SCH (11:25)
[2020-05-05 12:07] LABS: Monocytes # 0.6 K/mcL (0.0-1.3); Neutrophils # 17.9 K/mcL (1.6-8.9); Platelet Estimate Slight Decrease (Normal)
[2020-05-05 12:08] LABS: Anisocytosis 1+ (Not Present); Poikilocytosis 1+ (Not Present)
[2020-05-05] MEDS: Dexmedetomidine HCl 400 MCG/100 ML MLS IVC SCH ×2 (12:27→16:16)
[2020-05-05] MEDS: Cefepime HCl 2,000 MG in Water for inj. (sterile) 20 ML IVP SCH ×2 (13:00→19:54)
[2020-05-05 16:32] LABS: Hematocrit 25.8 % (35.3-44.9); Hemoglobin 8.2 g/dL (11.5-15.4)
[2020-05-05 16:48] LABS: Phosphorous 4.5 mg/dL (2.7-4.5)
[2020-05-05] MEDS ORDERED: 0.9 % Sodium Chloride 250 ML ONE (17:42)
[2020-05-05 23:18] LABS: Hematocrit 28.3 % (35.3-44.9)
[2020-05-06] MEDS: Ipratropium 1 PUFF INHALER IH SCH ×6 (04:06→23:28)
[2020-05-06 04:20] LABS: Basophils % 0.2 %; Lymphocytes # 1.2 K/mcL (0.6-4.6); Lymphocytes % 11.5 %; Nucleated Red Blood Cells 0.3 /100 WBC (0); White Blood Count 10.4 K/mcL (4.3-11.1)
[2020-05-06] MEDS: Artificial Tears SOLN 15 ML BOTTLE BOTH EYES SCH ×5 (04:20→20:33)
[2020-05-06] MEDS: Insulin LISPRO 300 UNITS/3 ML VIAL SQ SCH ×5 (04:20→20:59)
[2020-05-06 04:21] LABS: Hematocrit 27.5 % (35.3-44.9); Hemoglobin 8.9 g/dL (11.5-15.4); Immature Granulocytes % 3.8 % (0-4); Immature Platelets 9.5 % (1.1-6.1); Mean Corpuscular HGB Conc 32.4 g/dL (31.6-35.5); Mean Corpuscular Hemoglobin 27.6 pg (28.0-33.3); Mean Corpuscular Volume 85.4 fL (83.0-100.0); Mean Platelet Volume 13.1 fL (9.4-12.4); Monocytes # 0.8 K/mcL (0.0-1.3); Monocytes % 7.3 %; Red Blood Count 3.22 M/mcL (3.82-4.97); Red Cell Distribution Width 16.6 % (11.5-14.5); Segmented Neutrophils % 77.2 %
[2020-05-06 04:21] LABS: ABG Base Excess -2 mEq/L (-2 to 3); ABG HCO3 22 mEq/L (21-27); ABG Oxygen Saturation 99 % (95-98); ABG PCO2 36 mmHg (35-45); ABG PO2 147 mmHg (85-104); ABG TCO2 23 mEq/L (20-26); Blood Gas Modality ASSIST CONTROL; Blood Gas VT 400 cc
[2020-05-06 04:22] LABS: VBG Ionized Calcium 1.24 mmol/L (1.15-1.35)
[2020-05-06 04:23] LABS: Platelet Count 66 K/mcL (140-400)
[2020-05-06] MEDS: Pantoprazole 40 MG in 0.9 % Sodium Chloride Mini Bag 100 ML IVC SCH ×3 (04:30→14:49)
[2020-05-06 04:38] LABS: Alanine Aminotransferase 22 Units/L (7-52); Albumin 2.4 g/dL (3.5-5.7); Albumin/Globulin Ratio 1.3 (1.1-2.2); Alkaline Phosphatase 60 Units/L (34-104); Aspartate Amino Transferase 15 Units/L (13-39); BUN/Creatinine Ratio 76 (6-26); Bilirubin,Total 0.5 mg/dL (0.3-1.0); Blood Urea Nitrogen 59 mg/dL (6-20); Calcium 8.1 mg/dL (8.6-10.3); Carbon Dioxide 22 mEq/L (23-29); Chloride 122 mEq/L (98-107); Globulin 1.8 g/dL (2.4-3.5); Glucose 108 mg/dL (70-105); Osmolality,Calculated 329 (280-300); Phosphorous 3.6 mg/dL (2.7-4.5); Potassium 4.3 mEq/L (3.5-5.1); Sodium 151 mEq/L (136-145); Total Protein 4.2 g/dL (6.4-8.9); eGFR For African Americans > 60 (> 60); eGFR For Non-African Americans > 60 (> 60)
[2020-05-06] MEDS: Cefepime HCl 2,000 MG in Water for inj. (sterile) 20 ML IVP SCH ×3 (05:42→20:34)
[2020-05-06] MEDS: Metoclopramide 10 MG/2 ML VIAL IVP SCH (05:42)
[2020-05-06 05:53] LABS: INR 1.1; Prothrombin Time 12.9 Seconds (9.4-12.1)
[2020-05-06] MEDS: Vasopressin 40 UNIT in D5% in Water 100 ML IVC SCH (09:49)
[2020-05-06] MEDS: Insulin DETEMIR 100 UNIT/ML X5UNITS SQ SCH ×2 (09:54→20:59)
[2020-05-06] MEDS: Chlorhexidine Rinse 15 ML MOUTHWASH MM SCH ×2 (09:54→20:33)
[2020-05-06] MEDS: MetroNIDAZOLE 500 MG/100 ML 500 MG/100 ML BAG IVPB SCH ×2 (09:55→16:35)
[2020-05-06] MEDS ORDERED: D5% in Water 1,000 ML IVC SCH (10:00)
[2020-05-06] MEDS: Nystatin POWDER 30 GM BOTTLE TP SCH ×3 (10:33→20:34)
[2020-05-06] MEDS: Dexamethasone Sodium Phos/PF 10 MG/ML VIAL IVP SCH (10:36)
[2020-05-06] MEDS: Pantoprazole 40 MG VIAL IVP SCH (16:33)
[2020-05-06] MEDS: FentaNYL (PF) 1,000 MCG/100 ML IV.SOLN IVC SCH (16:36)
[2020-05-06 17:49] LABS: BUN/Creatinine Ratio 74 (6-26); Blood Urea Nitrogen 51 mg/dL (6-20); Calcium 8.1 mg/dL (8.6-10.3); Carbon Dioxide 22 mEq/L (23-29); Chloride 123 mEq/L (98-107); Glucose 136 mg/dL (70-105); Osmolality,Calculated 326 (280-300); Potassium 4.3 mEq/L (3.5-5.1); Sodium 150 mEq/L (136-145); eGFR For African Americans > 60 (> 60); eGFR For Non-African Americans > 60 (> 60)
[2020-05-07] MEDS: Dexmedetomidine HCl 400 MCG/100 ML MLS IVC SCH (01:32)
[2020-05-07] MEDS: MetroNIDAZOLE 500 MG/100 ML 500 MG/100 ML BAG IVPB SCH ×4 (01:34→23:26)
[2020-05-07] MEDS: Ipratropium 1 PUFF INHALER IH SCH ×5 (03:13→19:46)
[2020-05-07] MEDS: FentaNYL (PF) 1,000 MCG/100 ML IV.SOLN IVC SCH ×2 (04:00→23:24)
[2020-05-07] MEDS: Artificial Tears SOLN 15 ML BOTTLE BOTH EYES SCH ×7 (04:09→23:11)
[2020-05-07] MEDS: Insulin LISPRO 300 UNITS/3 ML VIAL SQ SCH ×6 (04:10→20:01)
[2020-05-07] MEDS: Vasopressin 40 UNIT in D5% in Water 100 ML IVC SCH (04:11)
[2020-05-07 04:39] LABS: ABG Base Excess -2 mEq/L (-2 to 3); ABG HCO3 20 mEq/L (21-27); ABG Oxygen Saturation 100 % (95-98); ABG PCO2 24 mmHg (35-45); ABG PH 7.53 pH Units (7.32-7.45); ABG PO2 181 mmHg (85-104); ABG TCO2 21 mEq/L (20-26); Blood Gas Modality AF; Blood Gas VT 400 cc
[2020-05-07 05:08] LABS: Mean Corpuscular Hemoglobin 28.7 pg (28.0-33.3)
[2020-05-07 05:10] LABS: Basophils % 0.2 %; Eosinophils % 0.2 %; Hematocrit 27.4 % (35.3-44.9); Hemoglobin 8.8 g/dL (11.5-15.4); Immature Granulocytes % 2.4 % (0-4); Immature Platelets 7.5 % (1.1-6.1); Lymphocytes # 1.3 K/mcL (0.6-4.6); Lymphocytes % 14.9 %; Mean Corpuscular HGB Conc 32.1 g/dL (31.6-35.5); Mean Corpuscular Volume 89.3 fL (83.0-100.0); Mean Platelet Volume 12.5 fL (9.4-12.4); Monocytes # 0.6 K/mcL (0.0-1.3); Monocytes % 6.7 %; Neutrophils # 6.8 K/mcL (1.6-8.9); Nucleated Red Blood Cells 0.2 /100 WBC (0); Red Blood Count 3.07 M/mcL (3.82-4.97); Red Cell Distribution Width 16.9 % (11.5-14.5); Segmented Neutrophils % 75.6 %
[2020-05-07 05:18] LABS: Platelet Count 76 K/mcL (140-400)
[2020-05-07 05:26] LABS: Alanine Aminotransferase 28 Units/L (7-52); Albumin 2.4 g/dL (3.5-5.7); Albumin/Globulin Ratio 1.4 (1.1-2.2); Alkaline Phosphatase 59 Units/L (34-104); Aspartate Amino Transferase 24 Units/L (13-39); BUN/Creatinine Ratio 81 (6-26); Bilirubin,Total 0.5 mg/dL (0.3-1.0); Blood Urea Nitrogen 51 mg/dL (6-20); Calcium 7.9 mg/dL (8.6-10.3); Carbon Dioxide 20 mEq/L (23-29); Chloride 120 mEq/L (98-107); Globulin 1.7 g/dL (2.4-3.5); Glucose 150 mg/dL (70-105); Osmolality,Calculated 321 (280-300); Potassium 3.7 mEq/L (3.5-5.1); Sodium 147 mEq/L (136-145); Total Protein 4.1 g/dL (6.4-8.9); eGFR For African Americans > 60 (> 60); eGFR For Non-African Americans > 60 (> 60)
[2020-05-07] MEDS: Cefepime HCl 2,000 MG in Water for inj. (sterile) 20 ML IVP SCH ×3 (06:30→21:46)
[2020-05-07] MEDS: Pantoprazole 40 MG VIAL IVP SCH ×2 (06:31→17:45)
[2020-05-07 06:53] LABS: VBG Ionized Calcium 1.27 mmol/L (1.15-1.35)
[2020-05-07 07:03] LABS: Magnesium 1.9 mg/dL (1.6-2.6); Phosphorous 3.3 mg/dL (2.7-4.5)
[2020-05-07] MEDS: Chlorhexidine Rinse 15 ML MOUTHWASH MM SCH ×2 (08:44→19:37)
[2020-05-07] MEDS: Dexamethasone Sodium Phos/PF 10 MG/ML VIAL IVP SCH (08:44)
[2020-05-07] MEDS: Insulin DETEMIR 100 UNIT/ML X5UNITS SQ SCH ×2 (08:58→19:41)
[2020-05-07] MEDS: Nystatin POWDER 30 GM BOTTLE TP SCH ×3 (09:04→19:41)
[2020-05-07] MEDS: Docusate Oral Soln 100 MG/10 ML UDC GTUBE SCH ×2 (12:24→19:39)
[2020-05-07] MEDS: Norepinephrine 4 MG/254 ML IV.SOLN IVC SCH (12:24)
[2020-05-08] MEDS: Insulin LISPRO 300 UNITS/3 ML VIAL SQ SCH ×6 (00:07→20:01)
[2020-05-08] MEDS: Ipratropium 1 PUFF INHALER IH SCH ×7 (00:19→23:19)
[2020-05-08 04:02] LABS: Hemoglobin 7.8 g/dL (11.5-15.4)
[2020-05-08 04:04] LABS: Basophils % 0.3 %; Eosinophils % 0.3 %; Hematocrit 24.2 % (35.3-44.9); Immature Granulocytes % 4.8 % (0-4); Immature Platelets 8.1 % (1.1-6.1); Lymphocytes # 1.3 K/mcL (0.6-4.6); Lymphocytes % 17.8 %; Mean Corpuscular HGB Conc 32.2 g/dL (31.6-35.5); Mean Corpuscular Hemoglobin 28.1 pg (28.0-33.3); Mean Corpuscular Volume 87.1 fL (83.0-100.0); Monocytes # 0.5 K/mcL (0.0-1.3); Monocytes % 6.6 %; Neutrophils # 5.3 K/mcL (1.6-8.9); Nucleated Red Blood Cells 0.3 /100 WBC (0); Platelet Count 66 K/mcL (140-400); Red Blood Count 2.78 M/mcL (3.82-4.97); Red Cell Distribution Width 16.6 % (11.5-14.5); Segmented Neutrophils % 70.2 %; White Blood Count 7.5 K/mcL (4.3-11.1)
[2020-05-08 04:04] LABS: VBG Ionized Calcium 1.17 mmol/L (1.15-1.35)
[2020-05-08 04:21] LABS: Alanine Aminotransferase 34 Units/L (7-52); Albumin/Globulin Ratio 1.3 (1.1-2.2); Alkaline Phosphatase 55 Units/L (34-104); Aspartate Amino Transferase 30 Units/L (13-39); BUN/Creatinine Ratio 91 (6-26); Bilirubin,Total 0.5 mg/dL (0.3-1.0); Blood Urea Nitrogen 43 mg/dL (6-20); Calcium 7.1 mg/dL (8.6-10.3); Carbon Dioxide 21 mEq/L (23-29); Chloride 121 mEq/L (98-107); Globulin 1.5 g/dL (2.4-3.5); Glucose 141 mg/dL (70-105); Magnesium 1.6 mg/dL (1.6-2.6); Osmolality,Calculated 315 (280-300); Phosphorous 2.5 mg/dL (2.7-4.5); Potassium 3.2 mEq/L (3.5-5.1); Sodium 146 mEq/L (136-145); Total Protein 3.5 g/dL (6.4-8.9); eGFR For African Americans > 60 (> 60); eGFR For Non-African Americans > 60 (> 60)
[2020-05-08] MEDS: Artificial Tears SOLN 15 ML BOTTLE BOTH EYES SCH ×6 (04:47→23:54)
[2020-05-08] MEDS: Dexmedetomidine HCl 400 MCG/100 ML MLS IVC SCH (04:58)
[2020-05-08] MEDS: Vasopressin 40 UNIT in D5% in Water 100 ML IVC SCH (04:58)
[2020-05-08 05:11] LABS: ABG Base Excess -2 mEq/L (-2 to 3); ABG HCO3 22 mEq/L (21-27); ABG Oxygen Saturation 98 % (95-98); ABG PCO2 32 mmHg (35-45); ABG PH 7.44 pH Units (7.32-7.45); ABG PO2 93 mmHg (85-104); ABG TCO2 23 mEq/L (20-26); Blood Gas Modality ASSIST CONTROL; Blood Gas VT 400 cc
[2020-05-08] MEDS: Pantoprazole 40 MG VIAL IVP SCH ×2 (05:39→17:04)
[2020-05-08] MEDS: Cefepime HCl 2,000 MG in Water for inj. (sterile) 20 ML IVP SCH ×3 (05:39→22:12)
[2020-05-08] MEDS: Chlorhexidine Rinse 15 ML MOUTHWASH MM SCH ×2 (07:42→19:48)
[2020-05-08] MEDS: Dexamethasone Sodium Phos/PF 10 MG/ML VIAL IVP SCH (07:43)
[2020-05-08] MEDS: MetroNIDAZOLE 500 MG/100 ML 500 MG/100 ML BAG IVPB SCH ×2 (07:43→15:07)
[2020-05-08] MEDS: Docusate Oral Soln 100 MG/10 ML UDC GTUBE SCH ×2 (07:44→19:48)
[2020-05-08] MEDS: Nystatin POWDER 30 GM BOTTLE TP SCH ×3 (07:44→19:48)
[2020-05-08] MEDS: Insulin DETEMIR 100 UNIT/ML X5UNITS SQ SCH ×2 (08:03→20:07)
[2020-05-08] MEDS: Norepinephrine 4 MG/254 ML IV.SOLN IVC SCH (11:49)
[2020-05-08] MEDS: *HR* Heparin 5,000 UNIT/ML VIAL SQ SCH (17:04)
[2020-05-08] MEDS: FentaNYL (PF) 1,000 MCG/100 ML IV.SOLN IVC SCH (19:48)
[2020-05-09] MEDS: Insulin LISPRO 300 UNITS/3 ML VIAL SQ SCH ×7 (00:13→23:58)
[2020-05-09] MEDS: Ipratropium 1 PUFF INHALER IH SCH ×6 (03:07→23:45)
[2020-05-09] MEDS: FentaNYL (PF) 1,000 MCG/100 ML IV.SOLN IVC SCH ×2 (03:58→21:43)
[2020-05-09 04:57] LABS: ABG Base Excess -2 mEq/L (-2 to 3); ABG HCO3 23 mEq/L (21-27); ABG Oxygen Saturation 98 % (95-98); ABG PCO2 36 mmHg (35-45); ABG PH 7.41 pH Units (7.32-7.45); ABG PO2 105 mmHg (85-104); ABG TCO2 24 mEq/L (20-26); Blood Gas Modality AF; Blood Gas VT 400 cc
[2020-05-09] MEDS: Pantoprazole 40 MG VIAL IVP SCH ×2 (05:04→17:23)
[2020-05-09] MEDS: Dexmedetomidine HCl 400 MCG/100 ML MLS IVC SCH ×2 (05:04→21:11)
[2020-05-09] MEDS: *HR* Heparin 5,000 UNIT/ML VIAL SQ SCH ×2 (05:04→17:27)
[2020-05-09] MEDS: Artificial Tears SOLN 15 ML BOTTLE BOTH EYES SCH ×6 (05:05→23:37)
[2020-05-09 05:06] LABS: VBG Ionized Calcium 1.23 mmol/L (1.15-1.35)
[2020-05-09 05:06] LABS: Basophils % 0.2 %; Eosinophils % 0.6 %; Hemoglobin 8.9 g/dL (11.5-15.4)
[2020-05-09 05:08] LABS: Eosinophils # 0.1 K/mcL (0.0-0.6); Hematocrit 28.6 % (35.3-44.9); Immature Granulocytes % 3.6 % (0-4); Immature Platelets 6.8 % (1.1-6.1); Lymphocytes # 1.8 K/mcL (0.6-4.6); Lymphocytes % 18.4 %; Mean Corpuscular HGB Conc 31.1 g/dL (31.6-35.5); Mean Corpuscular Hemoglobin 27.6 pg (28.0-33.3); Mean Corpuscular Volume 88.8 fL (83.0-100.0); Mean Platelet Volume 12.4 fL (9.4-12.4); Monocytes # 0.6 K/mcL (0.0-1.3); Monocytes % 6.5 %; Nucleated Red Blood Cells 0.2 /100 WBC (0); Red Blood Count 3.22 M/mcL (3.82-4.97); Red Cell Distribution Width 16.5 % (11.5-14.5); Segmented Neutrophils % 70.7 %; White Blood Count 9.9 K/mcL (4.3-11.1)
[2020-05-09 05:23] LABS: Platelet Count 77 K/mcL (140-400)
[2020-05-09 05:28] LABS: Alanine Aminotransferase 58 Units/L (7-52); Albumin 2.3 g/dL (3.5-5.7); Albumin/Globulin Ratio 1.4 (1.1-2.2); Alkaline Phosphatase 65 Units/L (34-104); Aspartate Amino Transferase 60 Units/L (13-39); BUN/Creatinine Ratio 83 (6-26); Bilirubin,Total 0.4 mg/dL (0.3-1.0); Blood Urea Nitrogen 38 mg/dL (6-20); Carbon Dioxide 22 mEq/L (23-29); Chloride 117 mEq/L (98-107); Globulin 1.6 g/dL (2.4-3.5); Glucose 163 mg/dL (70-105); Magnesium 1.7 mg/dL (1.6-2.6); Osmolality,Calculated 309 (280-300); Phosphorous 3.1 mg/dL (2.7-4.5); Potassium 3.5 mEq/L (3.5-5.1); Sodium 143 mEq/L (136-145); Total Protein 3.9 g/dL (6.4-8.9); eGFR For African Americans > 60 (> 60); eGFR For Non-African Americans > 60 (> 60)
[2020-05-09] MEDS: Docusate Oral Soln 100 MG/10 ML UDC GTUBE SCH ×2 (09:20→19:17)
[2020-05-09] MEDS: Chlorhexidine Rinse 15 ML MOUTHWASH MM SCH ×2 (09:20→19:17)
[2020-05-09] MEDS: Dexamethasone Sodium Phos/PF 10 MG/ML VIAL IVP SCH (09:23)
[2020-05-09] MEDS: Insulin DETEMIR 100 UNIT/ML X5UNITS SQ SCH ×2 (09:24→19:19)
[2020-05-09] MEDS: Nystatin POWDER 30 GM BOTTLE TP SCH ×3 (09:24→19:34)
[2020-05-09] MEDS ORDERED: Furosemide 40 MG/4 ML VIAL ONE (13:29)
[2020-05-09] MEDS: Norepinephrine 4 MG/254 ML IV.SOLN IVC SCH (19:16)
[2020-05-09] MEDS: Furosemide 40 MG/4 ML VIAL IVP SCH (19:19)
[2020-05-10] MEDS: Ipratropium 1 PUFF INHALER IH SCH ×6 (03:29→23:32)
[2020-05-10 03:50] LABS: ABG Base Excess 2 mEq/L (-2 to 3); ABG HCO3 25 mEq/L (21-27); ABG Oxygen Saturation 98 % (95-98); ABG PCO2 36 mmHg (35-45); ABG PH 7.46 pH Units (7.32-7.45); ABG PO2 98 mmHg (85-104); ABG TCO2 26 mEq/L (20-26); Blood Gas VT 400 cc
[2020-05-10] MEDS: Pantoprazole 40 MG VIAL IVP SCH ×2 (04:57→17:56)
[2020-05-10] MEDS: *HR* Heparin 5,000 UNIT/ML VIAL SQ SCH ×2 (04:57→17:56)
[2020-05-10] MEDS: Artificial Tears SOLN 15 ML BOTTLE BOTH EYES SCH ×6 (04:57→23:51)
[2020-05-10 05:22] LABS: Eosinophils % 0.6 %; Hemoglobin 8.4 g/dL (11.5-15.4)
[2020-05-10 05:25] LABS: Basophils % 0.1 %; Eosinophils # 0.1 K/mcL (0.0-0.6); Hematocrit 25.8 % (35.3-44.9); Immature Granulocytes % 4.5 % (0-4); Lymphocytes # 2.2 K/mcL (0.6-4.6); Lymphocytes % 25.1 %; Mean Corpuscular HGB Conc 32.6 g/dL (31.6-35.5); Mean Corpuscular Hemoglobin 28.5 pg (28.0-33.3); Mean Corpuscular Volume 87.5 fL (83.0-100.0); Mean Platelet Volume 11.9 fL (9.4-12.4); Monocytes # 0.5 K/mcL (0.0-1.3); Monocytes % 5.9 %; Red Blood Count 2.95 M/mcL (3.82-4.97); Red Cell Distribution Width 16.3 % (11.5-14.5); Segmented Neutrophils % 63.8 %; White Blood Count 8.7 K/mcL (4.3-11.1)
[2020-05-10] MEDS: Insulin LISPRO 300 UNITS/3 ML VIAL SQ SCH ×6 (05:31→23:53)
[2020-05-10 05:32] LABS: Neutrophils # 5.6 K/mcL (1.6-8.9); Platelet Count 88 K/mcL (140-400)
[2020-05-10 05:42] LABS: Alanine Aminotransferase 73 Units/L (7-52); Albumin 2.3 g/dL (3.5-5.7); Albumin/Globulin Ratio 1.4 (1.1-2.2); Alkaline Phosphatase 66 Units/L (34-104); Aspartate Amino Transferase 62 Units/L (13-39); BUN/Creatinine Ratio 86 (6-26); Bilirubin,Total 0.4 mg/dL (0.3-1.0); Blood Urea Nitrogen 36 mg/dL (6-20); Calcium 7.8 mg/dL (8.6-10.3); Carbon Dioxide 24 mEq/L (23-29); Chloride 113 mEq/L (98-107); Globulin 1.7 g/dL (2.4-3.5); Glucose 94 mg/dL (70-105); Magnesium 1.6 mg/dL (1.6-2.6); Osmolality,Calculated 304 (280-300); Phosphorous 3.4 mg/dL (2.7-4.5); Potassium 3.2 mEq/L (3.5-5.1); Sodium 143 mEq/L (136-145); eGFR For African Americans > 60 (> 60); eGFR For Non-African Americans > 60 (> 60)
[2020-05-10] MEDS: Potassium Chloride 40 MEQ/200 ML BAG IVPB PRN ×2 (05:57→06:58)
[2020-05-10] MEDS: Furosemide 40 MG/4 ML VIAL IVP SCH ×2 (07:49→20:50)
[2020-05-10] MEDS: Dexamethasone Sodium Phos/PF 10 MG/ML VIAL IVP SCH (07:49)
[2020-05-10] MEDS: Chlorhexidine Rinse 15 ML MOUTHWASH MM SCH ×2 (07:49→20:50)
[2020-05-10] MEDS: Docusate Oral Soln 100 MG/10 ML UDC GTUBE SCH (07:50)
[2020-05-10] MEDS: Nystatin POWDER 30 GM BOTTLE TP SCH ×3 (07:50→20:59)
[2020-05-10] MEDS: Norepinephrine 4 MG/254 ML IV.SOLN IVC SCH (07:50)
[2020-05-10] MEDS: Insulin DETEMIR 100 UNIT/ML X5UNITS SQ SCH ×2 (12:12→20:50)
[2020-05-10] MEDS: FentaNYL (PF) 1,000 MCG/100 ML IV.SOLN IVC SCH (13:45)
[2020-05-11] MEDS: Ipratropium 1 PUFF INHALER IH SCH ×6 (03:34→23:50)
[2020-05-11 05:07] LABS: Basophils % 0.1 %
[2020-05-11 05:09] LABS: Eosinophils # 0.1 K/mcL (0.0-0.6); Eosinophils % 0.6 %; Hematocrit 27.1 % (35.3-44.9); Hemoglobin 8.8 g/dL (11.5-15.4); Immature Granulocytes % 3.3 % (0-4); Immature Platelets 8.5 % (1.1-6.1); Lymphocytes # 2.1 K/mcL (0.6-4.6); Lymphocytes % 25.1 %; Mean Corpuscular HGB Conc 32.5 g/dL (31.6-35.5); Mean Corpuscular Hemoglobin 28.4 pg (28.0-33.3); Mean Corpuscular Volume 87.4 fL (83.0-100.0); Mean Platelet Volume 12.2 fL (9.4-12.4); Monocytes # 0.6 K/mcL (0.0-1.3); Monocytes % 6.9 %; Neutrophils # 5.4 K/mcL (1.6-8.9); Nucleated Red Blood Cells 0.2 /100 WBC (0); Red Cell Distribution Width 16.8 % (11.5-14.5); White Blood Count 8.4 K/mcL (4.3-11.1)
[2020-05-11 05:11] LABS: ABG Base Excess 3 mEq/L (-2 to 3); ABG HCO3 27 mEq/L (21-27); ABG Oxygen Saturation 85 % (95-98); ABG PCO2 38 mmHg (35-45); ABG PH 7.47 pH Units (7.32-7.45); ABG PO2 46 mmHg (85-104); ABG TCO2 29 mEq/L (20-26); Blood Gas VT 400 cc
[2020-05-11] MEDS: Artificial Tears SOLN 15 ML BOTTLE BOTH EYES SCH ×5 (05:14→19:53)
[2020-05-11 05:25] LABS: Alanine Aminotransferase 69 Units/L (7-52); Albumin 2.4 g/dL (3.5-5.7); Albumin/Globulin Ratio 1.3 (1.1-2.2); Alkaline Phosphatase 68 Units/L (34-104); Aspartate Amino Transferase 49 Units/L (13-39); BUN/Creatinine Ratio 88 (6-26); Bilirubin,Total 0.4 mg/dL (0.3-1.0); Blood Urea Nitrogen 38 mg/dL (6-20); Calcium 7.9 mg/dL (8.6-10.3); Carbon Dioxide 26 mEq/L (23-29); Chloride 110 mEq/L (98-107); Globulin 1.8 g/dL (2.4-3.5); Glucose 93 mg/dL (70-105); Osmolality,Calculated 303 (280-300); Potassium 3.2 mEq/L (3.5-5.1); Sodium 142 mEq/L (136-145); Total Protein 4.2 g/dL (6.4-8.9); eGFR For African Americans > 60 (> 60); eGFR For Non-African Americans > 60 (> 60)
[2020-05-11 05:28] LABS: Platelet Count 91 K/mcL (140-400); Platelet Estimate Decreased (Normal)
[2020-05-11] MEDS: Pantoprazole 40 MG VIAL IVP SCH ×2 (05:28→17:49)
[2020-05-11] MEDS: *HR* Heparin 5,000 UNIT/ML VIAL SQ SCH ×2 (05:28→17:49)
[2020-05-11 05:29] LABS: Large Platelets Present (Not Present)
[2020-05-11] MEDS: Insulin LISPRO 300 UNITS/3 ML VIAL SQ SCH ×5 (05:29→20:22)
[2020-05-11] MEDS: Potassium Chloride 40 MEQ/200 ML BAG IVPB PRN ×2 (05:30→06:21)
[2020-05-11 05:44] LABS: Magnesium 1.8 mg/dL (1.6-2.6); Phosphorous 3.5 mg/dL (2.7-4.5)
[2020-05-11] MEDS: FentaNYL (PF) 1,000 MCG/100 ML IV.SOLN IVC SCH (06:21)
[2020-05-11] MEDS: Chlorhexidine Rinse 15 ML MOUTHWASH MM SCH ×2 (08:20→19:52)
[2020-05-11] MEDS: Furosemide 40 MG/4 ML VIAL IVP SCH (08:20)
[2020-05-11] MEDS: Dexamethasone Sodium Phos/PF 10 MG/ML VIAL IVP SCH (08:20)
[2020-05-11] MEDS: Nystatin POWDER 30 GM BOTTLE TP SCH ×3 (08:21→21:00)
[2020-05-11] MEDS: Dexmedetomidine HCl 400 MCG/100 ML MLS IVC SCH ×2 (09:52→21:40)
[2020-05-11] MEDS: Insulin DETEMIR 100 UNIT/ML X5UNITS SQ SCH ×2 (12:31→19:53)
[2020-05-11] MEDS ORDERED: acetaZOLAMIDE 250 MG in Water for inj. (sterile) 5 ML IVP ONE (14:08)
[2020-05-12] MEDS: Insulin LISPRO 300 UNITS/3 ML VIAL SQ SCH ×7 (01:35→23:50)
[2020-05-12] MEDS: FentaNYL (PF) 1,000 MCG/100 ML IV.SOLN IVC SCH (03:40)
[2020-05-12] MEDS: Artificial Tears SOLN 15 ML BOTTLE BOTH EYES SCH ×4 (03:41→12:17)
[2020-05-12] MEDS: Ipratropium 1 PUFF INHALER IH SCH ×6 (04:20→23:50)
[2020-05-12 04:42] LABS: ABG Base Excess 3 mEq/L (-2 to 3); ABG HCO3 27 mEq/L (21-27); ABG Oxygen Saturation 97 % (95-98); ABG PCO2 40 mmHg (35-45); ABG PH 7.43 pH Units (7.32-7.45); ABG PO2 92 mmHg (85-104); ABG TCO2 28 mEq/L (20-26); Blood Gas Modality AF; Blood Gas VT 400 cc
[2020-05-12] MEDS: Pantoprazole 40 MG VIAL IVP SCH ×2 (05:34→17:04)
[2020-05-12] MEDS: *HR* Heparin 5,000 UNIT/ML VIAL SQ SCH ×2 (05:37→17:04)
[2020-05-12] MEDS: Chlorhexidine Rinse 15 ML MOUTHWASH MM SCH (08:27)
[2020-05-12] MEDS: Nystatin POWDER 30 GM BOTTLE TP SCH ×3 (08:28→20:37)
[2020-05-12] MEDS: Dexamethasone Sodium Phos/PF 10 MG/ML VIAL IVP SCH (08:28)
[2020-05-12] MEDS: Insulin DETEMIR 100 UNIT/ML X5UNITS SQ SCH ×2 (08:32→20:36)
[2020-05-12] MEDS ORDERED: Potassium Chloride Elixir 20 MEQ/15 ML UDC GTUBE SCH (09:00)
[2020-05-12 10:03] LABS: Basophils % 0.1 %; Eosinophils # 0.1 K/mcL (0.0-0.6); Eosinophils % 0.5 %; Hematocrit 30.5 % (35.3-44.9); Hemoglobin 9.6 g/dL (11.5-15.4); Immature Granulocytes % 1.3 % (0-4); Lymphocytes # 2.2 K/mcL (0.6-4.6); Lymphocytes % 20.8 %; Mean Corpuscular HGB Conc 31.5 g/dL (31.6-35.5); Mean Corpuscular Hemoglobin 28.2 pg (28.0-33.3); Mean Corpuscular Volume 89.7 fL (83.0-100.0); Mean Platelet Volume 12.4 fL (9.4-12.4); Monocytes # 0.5 K/mcL (0.0-1.3); Monocytes % 4.9 %; Neutrophils # 7.5 K/mcL (1.6-8.9); Platelet Count 115 K/mcL (140-400); Segmented Neutrophils % 72.4 %; White Blood Count 10.4 K/mcL (4.3-11.1)
[2020-05-12 10:10] LABS: Alanine Aminotransferase 91 Units/L (7-52); Albumin/Globulin Ratio 1.5 (1.1-2.2); Alkaline Phosphatase 86 Units/L (34-104); Aspartate Amino Transferase 67 Units/L (13-39); BUN/Creatinine Ratio 84 (6-26); Bilirubin,Total 0.6 mg/dL (0.3-1.0); Blood Urea Nitrogen 41 mg/dL (6-20); Calcium 8.6 mg/dL (8.6-10.3); Carbon Dioxide 29 mEq/L (23-29); Chloride 107 mEq/L (98-107); Glucose 138 mg/dL (70-105); Magnesium 1.8 mg/dL (1.6-2.6); Osmolality,Calculated 304 (280-300); Potassium 3.2 mEq/L (3.5-5.1); Sodium 141 mEq/L (136-145); eGFR For African Americans > 60 (> 60); eGFR For Non-African Americans > 60 (> 60)
[2020-05-12] MEDS ORDERED: Dextrose Gel 15 GM/37.5 ML TUBE PO PRN ×2 (16:07)
[2020-05-12] MEDS ORDERED: D5% in Water 1,000 ML IVC PRN (16:07)
[2020-05-12] MEDS ORDERED: Naloxone 0.4 MG/ML INJ IVP PRN (16:07)
[2020-05-12] MEDS ORDERED: Artificial Tears SOLN 15 ML BOTTLE BOTH EYES PRN (16:07)
[2020-05-12] MEDS ORDERED: Ondansetron 4 MG/2 ML VIAL IVP PRN (16:07)
[2020-05-12] MEDS ORDERED: *HR* Metoprolol 5 MG/5 ML VIAL IVP PRN (16:07)
[2020-05-12] MEDS ORDERED: Perflutren Lipid Microsphere 1.3 ML in 0.9 % Sodium Chloride 8.7 ML IVP PRN (16:07)
[2020-05-12] MEDS ORDERED: *HR* Dextrose 50 % in Water (Vial) 50 ML VIAL IVP PRN (16:07)
[2020-05-12] MEDS: Docusate Oral Soln 100 MG/10 ML UDC GTUBE SCH (20:36)
[2020-05-12] MEDS ORDERED: Docusate Oral Soln 100 MG/10 ML UDC GTUBE SCH (21:00)
[2020-05-13] MEDS: Ipratropium 1 PUFF INHALER IH SCH ×6 (03:38→23:59)
[2020-05-13] MEDS: *HR* Dextrose 50 % in Water (Vial) 50 ML VIAL IVP PRN ×2 (04:30→07:27)
[2020-05-13] MEDS: Insulin LISPRO 300 UNITS/3 ML VIAL SQ SCH ×5 (05:40→22:46)
[2020-05-13 05:54] LABS: Basophils % 0.1 %; Eosinophils % 0.4 %; Immature Granulocytes % 1.2 % (0-4); Monocytes # 0.5 K/mcL (0.0-1.3); White Blood Count 7.7 K/mcL (4.3-11.1)
[2020-05-13 05:54] LABS: VBG Ionized Calcium 1.12 mmol/L (1.15-1.35)
[2020-05-13 05:56] LABS: Hematocrit 30.1 % (35.3-44.9); Hemoglobin 9.6 g/dL (11.5-15.4); Immature Platelets 5.6 % (1.1-6.1); Lymphocytes # 1.3 K/mcL (0.6-4.6); Lymphocytes % 16.8 %; Mean Corpuscular HGB Conc 31.9 g/dL (31.6-35.5); Mean Corpuscular Hemoglobin 28.6 pg (28.0-33.3); Mean Corpuscular Volume 89.6 fL (83.0-100.0); Mean Platelet Volume 11.7 fL (9.4-12.4); Neutrophils # 5.8 K/mcL (1.6-8.9); Platelet Count 132 K/mcL (140-400); Red Blood Count 3.36 M/mcL (3.82-4.97); Red Cell Distribution Width 17.2 % (11.5-14.5); Segmented Neutrophils % 75.5 %
[2020-05-13 06:10] LABS: Magnesium 1.9 mg/dL (1.6-2.6); Phosphorous 2.6 mg/dL (2.7-4.5)
[2020-05-13 06:12] LABS: Alanine Aminotransferase 98 Units/L (7-52); Albumin 3.1 g/dL (3.5-5.7); Albumin/Globulin Ratio 1.5 (1.1-2.2); Alkaline Phosphatase 92 Units/L (34-104); Aspartate Amino Transferase 70 Units/L (13-39); BUN/Creatinine Ratio 74 (6-26); Bilirubin,Total 0.7 mg/dL (0.3-1.0); Blood Urea Nitrogen 28 mg/dL (6-20); Calcium 8.9 mg/dL (8.6-10.3); Carbon Dioxide 26 mEq/L (23-29); Chloride 111 mEq/L (98-107); Globulin 2.1 g/dL (2.4-3.5); Glucose 104 mg/dL (70-105); Osmolality,Calculated 300 (280-300); Potassium 3.2 mEq/L (3.5-5.1); Sodium 142 mEq/L (136-145); Total Protein 5.2 g/dL (6.4-8.9); eGFR For African Americans > 60 (> 60); eGFR For Non-African Americans > 60 (> 60)
[2020-05-13] MEDS: Pantoprazole 40 MG VIAL IVP SCH (06:14)
[2020-05-13] MEDS: *HR* Heparin 5,000 UNIT/ML VIAL SQ SCH ×2 (06:14→17:30)
[2020-05-13] MEDS: Insulin DETEMIR 100 UNIT/ML X5UNITS SQ SCH ×2 (07:21→22:47)
[2020-05-13] MEDS: Docusate Oral Soln 100 MG/10 ML UDC GTUBE SCH (07:23)
[2020-05-13] MEDS: Potassium Chloride Elixir 20 MEQ/15 ML UDC GTUBE SCH (07:23)
[2020-05-13] MEDS: lisinopriL 10 MG TABLET PO SCH (07:23)
[2020-05-13] MEDS: Nystatin POWDER 30 GM BOTTLE TP SCH ×3 (07:49→21:30)
[2020-05-13] MEDS ORDERED: Dexamethasone Sodium Phos/PF 10 MG/ML VIAL IVP SCH (09:00)
[2020-05-13] MEDS: Potassium Chloride 40 MEQ/200 ML BAG IVPB PRN ×2 (09:18→10:31)
[2020-05-14] MEDS: Insulin LISPRO 300 UNITS/3 ML VIAL SQ SCH ×5 (00:58→16:47)
[2020-05-14] MEDS: Ipratropium 1 PUFF INHALER IH SCH ×5 (03:18→20:01)
[2020-05-14] MEDS: *HR* Enoxaparin 40 MG/0.4 ML SYRINGE SQ SCH (05:20)
[2020-05-14] MEDS: Insulin DETEMIR 100 UNIT/ML X5UNITS SQ SCH (08:51)
[2020-05-14] MEDS: lisinopriL 10 MG TABLET PO SCH (08:52)
[2020-05-14] MEDS: Potassium Chloride Elixir 20 MEQ/15 ML UDC GTUBE SCH (08:53)
[2020-05-14] MEDS: Nystatin POWDER 30 GM BOTTLE TP SCH ×3 (08:54→20:33)
[2020-05-14] MEDS ORDERED: Dexamethasone 4 MG/ML VIAL IVP SCH (09:00)
[2020-05-14 17:24] LABS: BUN/Creatinine Ratio 43 (6-26); Blood Urea Nitrogen 18 mg/dL (6-20); Calcium 8.7 mg/dL (8.6-10.3); Carbon Dioxide 24 mEq/L (23-29); Chloride 111 mEq/L (98-107); Glucose 165 mg/dL (70-105); Magnesium 1.8 mg/dL (1.6-2.6); Osmolality,Calculated 302 (280-300); Phosphorous 2.9 mg/dL (2.7-4.5); Sodium 143 mEq/L (136-145); eGFR For African Americans > 60 (> 60); eGFR For Non-African Americans > 60 (> 60)
[2020-05-14] MEDS ORDERED: Insulin DETEMIR 100 UNIT/ML X5UNITS SQ SCH (21:00)
[2020-05-15] MEDS: Ipratropium 1 PUFF INHALER IH SCH ×7 (00:12→23:41)
[2020-05-15] MEDS: *HR* Enoxaparin 40 MG/0.4 ML SYRINGE SQ SCH (06:44)
[2020-05-15] MEDS: lisinopriL 10 MG TABLET PO SCH (08:21)
[2020-05-15] MEDS: Nystatin POWDER 30 GM BOTTLE TP SCH ×3 (08:22→21:30)
[2020-05-15] MEDS: Insulin LISPRO 300 UNITS/3 ML VIAL SQ SCH ×3 (08:22→17:02)
[2020-05-15] MEDS ORDERED: Dexamethasone 4 MG/ML VIAL IVP SCH (09:00)
[2020-05-15] MEDS ORDERED: Ondansetron ODT 4 MG TAB.RAPDIS SL PRN (16:18)
[2020-05-16] MEDS: Ipratropium 1 PUFF INHALER IH SCH ×4 (04:00→15:53)
[2020-05-16] MEDS: *HR* Enoxaparin 40 MG/0.4 ML SYRINGE SQ SCH (05:29)
[2020-05-16] MEDS: Nystatin POWDER 30 GM BOTTLE TP SCH ×2 (07:55→16:55)
[2020-05-16] MEDS: lisinopriL 10 MG TABLET PO SCH (10:55)
[2020-05-16] MEDS: Insulin LISPRO 300 UNITS/3 ML VIAL SQ SCH ×3 (10:55→16:55)
[2020-05-16 17:08] VITALS: BP 126/72
== END 2020-05-16 18:30 | DRG 720 ==
LOC: 2NNU 08:25 → EMEROOARM 08:25 → SUATTDRO 11:34 → 2NNU 12:00 → ICNU 05-03 10:46 → 2NENU 05-04 04:52
PROVIDERS: ADMIT Internal Medicine; ATTEND Student in an Organized Health Care Education/Training Program

== ENCOUNTER 2020-05-20 11:07 | Inpatient (IN) ==
[2020-05-20] MEDS ORDERED: 0.9 % Sodium Chloride 1,000 ML IVC ONE (11:21)
[2020-05-20 12:17] LABS: Basophils % 0.4 %; Eosinophils % 0.3 %; Immature Granulocytes % 0.4 % (0-4); Platelet Count 114 K/mcL (140-400); Red Cell Distribution Width 17.3 % (11.5-14.5)
[2020-05-20 12:19] LABS: Hematocrit 33.2 % (35.3-44.9); Hemoglobin 10.4 g/dL (11.5-15.4); Immature Platelets 3.6 % (1.1-6.1); Lymphocytes % 12.9 %; Mean Corpuscular HGB Conc 31.3 g/dL (31.6-35.5); Mean Corpuscular Hemoglobin 28.1 pg (28.0-33.3); Mean Corpuscular Volume 89.7 fL (83.0-100.0); Mean Platelet Volume 11.7 fL (9.4-12.4); Monocytes # 0.5 K/mcL (0.0-1.3); Monocytes % 6.2 %; Segmented Neutrophils % 79.8 %; White Blood Count 7.6 K/mcL (4.3-11.1)
[2020-05-20 12:21] LABS: INR 1.9; Prothrombin Time 21.7 Seconds (9.4-12.1)
[2020-05-20 12:22] LABS: Neutrophils # 6.1 K/mcL (1.6-8.9)
[2020-05-20 12:22] LABS: VBG HCO3 23 mEq/L (21-27); VBG PCO2 31 mmHg (41-51); VBG PH 7.47 pH Units (7.32-7.42); VBG PO2 174 mmHg (25-50)
[2020-05-20 12:24] LABS: Activated Partial Thrombo Time 31.6 Seconds (26.0-36.0)
[2020-05-20 13:00] LABS: Alanine Aminotransferase 45 Units/L (7-52); Albumin 3.1 g/dL (3.5-5.7); Albumin/Globulin Ratio 1.5 (1.1-2.2); Alkaline Phosphatase 134 Units/L (34-104); Aspartate Amino Transferase 27 Units/L (13-39); BUN/Creatinine Ratio 37 (6-26); Bilirubin,Direct 0.2 mg/dL (0.0-0.2); Bilirubin,Indirect 0.6 mg/dL (0.0-1.0); Bilirubin,Total 0.8 mg/dL (0.3-1.0); Blood Urea Nitrogen 16 mg/dL (6-20); Calcium 8.5 mg/dL (8.6-10.3); Carbon Dioxide 22 mEq/L (23-29); Chloride 111 mEq/L (98-107); Globulin 2.1 g/dL (2.4-3.5); Glucose 187 mg/dL (70-105); Lipase 31 Units/L (11-82); Magnesium 1.5 mg/dL (1.6-2.6); Osmolality,Calculated 304 (280-300); Phosphorous 2.9 mg/dL (2.7-4.5); Potassium 3.5 mEq/L (3.5-5.1); Sodium 144 mEq/L (136-145); Total Protein 5.2 g/dL (6.4-8.9); Troponin I 0.06 ng/mL (< 0.04); eGFR For African Americans > 60 (> 60); eGFR For Non-African Americans > 60 (> 60)
[2020-05-20 13:59] LABS: Bilirubin,Urine Moderate (Negative); Blood,Urine Small (Negative); Clarity,Urine Turbid (Clear); Color,Urine Yellow (Yellow); Glucose,Urine (UA) Normal (Normal); Ketones,Urine 40 mg/dL (Negative); Leukocyte Esterase,Urine Negative (Negative); Nitrite,Urine Negative (Negative); Protein,Urine 100 mg/dL (Neg-Trace); Specific Gravity,Urine >= 1.030 (1.010-1.025); Urobilinogen,Urine Normal (Normal)
[2020-05-20 14:17] LABS: Budding Yeast,Urine Many per hpf (None Seen); Mucus,Urine Few per lpf (None-Few); RBC,Urine 30-50 per hpf (0-3); Squamous Epithelial Cell,Urine Few per hpf (None-Few); WBC,Urine 50-100 per hpf (0-3)
[2020-05-20] MEDS ORDERED: Isovue-370 500 ML BOTTLE IVP ONE (15:50)
[2020-05-20] MEDS ORDERED: Piperacillin/Tazobactam 3.375 GM in 0.9 % Sodium Chloride Mini Bag 100 ML IVPB SCH (18:15)
[2020-05-20] MEDS ORDERED: Naloxone 0.4 MG/ML INJ IVP PRN (18:27)
[2020-05-20] MEDS ORDERED: D5% in Water 1,000 ML IVC PRN (18:30)
[2020-05-20] MEDS ORDERED: *HR* Dextrose 50 % in Water (Vial) 50 ML VIAL IVP PRN (18:30)
[2020-05-20] MEDS ORDERED: Dextrose Gel 15 GM/37.5 ML TUBE PO PRN ×2 (18:30)
[2020-05-20] MEDS ORDERED: MetroNIDAZOLE 500 MG/100 ML 500 MG/100 ML BAG IVPB SCH (19:01)
[2020-05-20] MEDS ORDERED: Cefepime HCl 2,000 MG in Water for inj. (sterile) 20 ML IVP SCH (19:01)
[2020-05-20 19:37] LABS: Adenovirus Not Detected (Not Detect); Coronavirus 229E Not Detected (Not Detect); Coronavirus HKU1 Not Detected (Not Detect); Coronavirus NL63 Not Detected (Not Detect); Coronavirus OC43 Not Detected (Not Detect)
[2020-05-20 19:38] LABS: Bordetella Pertussis Not Detected (Not Detect); Chlamydophila pneumoniae Not Detected (Not Detect); Human Metapneumovirus Not Detected (Not Detect); Human Rhinovirus/Enterovirus Not Detected (Not Detect); Influenza A Subtype 2009 H1 Not Detected (Not Detect); Influenza B Not Detected (Not Detect); Mycoplasma pneumoniae Not Detected (Not Detect); Parainfluenza Virus 1 Not Detected (Not Detect); Parainfluenza Virus 2 Not Detected (Not Detect); Parainfluenza Virus 3 Not Detected (Not Detect); Parainfluenza Virus 4 Not Detected (Not Detect); Respiratory Syncytial Virus Not Detected (Not Detect); SARS-CoV-2 Not Detected (Not Detect)
[2020-05-20] MEDS: Insulin LISPRO 300 UNITS/3 ML VIAL SQ SCH (22:23)
[2020-05-20] MEDS: Nystatin POWDER 30 GM BOTTLE TP SCH (22:24)
[2020-05-20] MEDS: Vancomycin 1,500 MG/265 ML IV.SOLN IVPB SCH (22:24)
[2020-05-21 00:31] LABS: Adenovirus Not Detected (Not Detect); Coronavirus 229E Not Detected (Not Detect); Coronavirus HKU1 Not Detected (Not Detect); Coronavirus NL63 Not Detected (Not Detect); Coronavirus OC43 Not Detected (Not Detect)
[2020-05-21 00:33] LABS: Bordetella Pertussis Not Detected (Not Detect); Chlamydophila pneumoniae Not Detected (Not Detect); Human Metapneumovirus Not Detected (Not Detect); Human Rhinovirus/Enterovirus Not Detected (Not Detect); Influenza A Subtype 2009 H1 Not Detected (Not Detect); Influenza B Not Detected (Not Detect); Mycoplasma pneumoniae Not Detected (Not Detect); Parainfluenza Virus 1 Not Detected (Not Detect); Parainfluenza Virus 2 Not Detected (Not Detect); Parainfluenza Virus 3 Not Detected (Not Detect); Parainfluenza Virus 4 Not Detected (Not Detect); Respiratory Syncytial Virus Not Detected (Not Detect); SARS-CoV-2 DETECTED (Not Detect)
[2020-05-21] MEDS: Cefepime HCl 2,000 MG in Water for inj. (sterile) 20 ML IVP SCH ×3 (05:21→21:54)
[2020-05-21] MEDS: MetroNIDAZOLE 500 MG/100 ML 500 MG/100 ML BAG IVPB SCH ×3 (05:22→21:55)
[2020-05-21 06:34] LABS: Basophils % 0.3 %; Immature Granulocytes % 0.3 % (0-4); Lymphocytes % 13.7 %; Red Cell Distribution Width 17.2 % (11.5-14.5)
[2020-05-21 06:36] LABS: Eosinophils # 0.1 K/mcL (0.0-0.6); Eosinophils % 0.8 %; Hematocrit 31.6 % (35.3-44.9); Hemoglobin 9.8 g/dL (11.5-15.4); Immature Platelets 4.3 % (1.1-6.1); Lymphocytes # 0.8 K/mcL (0.6-4.6); Mean Corpuscular Hemoglobin 27.9 pg (28.0-33.3); Mean Platelet Volume 11.8 fL (9.4-12.4); Monocytes # 0.4 K/mcL (0.0-1.3); Monocytes % 6.3 %; Neutrophils # 4.7 K/mcL (1.6-8.9); Red Blood Count 3.51 M/mcL (3.82-4.97); Segmented Neutrophils % 78.6 %
[2020-05-21 06:37] LABS: Platelet Count 87 K/mcL (140-400)
[2020-05-21 06:53] LABS: BUN/Creatinine Ratio 39 (6-26); Blood Urea Nitrogen 12 mg/dL (6-20); Calcium 8.2 mg/dL (8.6-10.3); Carbon Dioxide 20 mEq/L (23-29); Chloride 112 mEq/L (98-107); Glucose 172 mg/dL (70-105); Osmolality,Calculated 302 (280-300); Potassium 3.2 mEq/L (3.5-5.1); Sodium 144 mEq/L (136-145); eGFR For African Americans > 60 (> 60); eGFR For Non-African Americans > 60 (> 60)
[2020-05-21] MEDS: Insulin LISPRO 300 UNITS/3 ML VIAL SQ SCH ×4 (07:25→21:07)
[2020-05-21] MEDS: lisinopriL 10 MG TABLET PO SCH (08:57)
[2020-05-21] MEDS: Ascorbic Acid 500 MG TABLET PO SCH (08:57)
[2020-05-21] MEDS: Aspirin Enteric Coated 81 MG Tablet PO SCH (08:57)
[2020-05-21] MEDS: Zinc Sulfate 220 MG CAPSULE PO SCH (08:57)
[2020-05-21] MEDS: Loratadine 10 MG TABLET PO SCH (08:57)
[2020-05-21] MEDS: Nystatin POWDER 30 GM BOTTLE TP SCH ×3 (09:06→20:41)
[2020-05-21] MEDS ORDERED: *HR* Propofol 200 MG/20 ML VIAL IVP ONE ×2 (09:40→13:48)
[2020-05-21] MEDS ORDERED: *HR* FentaNYL (PF) 100 MCG/2 ML VIAL ONE ×2 (09:40→13:48)
[2020-05-21] MEDS ORDERED: Ondansetron 4 MG/2 ML VIAL ONE ×2 (09:41→13:49)
[2020-05-21] MEDS ORDERED: Dexamethasone 4 MG/ML VIAL ONE ×2 (09:41→13:49)
[2020-05-21] MEDS ORDERED: Lidocaine -MPF 2% 2 ML VIAL ONE ×2 (09:41→13:49)
[2020-05-21] MEDS ORDERED: *HR* Rocuronium Bromide 50 MG/5 ML VIAL ONE (09:44)
[2020-05-21] MEDS: Vancomycin 1,500 MG/265 ML IV.SOLN IVPB SCH ×2 (10:20→20:41)
[2020-05-21] MEDS ORDERED: Lidocaine -MPF 4% 5 ML AMPUL ONE (14:05)
[2020-05-21 18:53] LABS: Source of Body Fluid LUL BAL; Source of Body Fluid RML BAL
[2020-05-21 22:30] LABS: Appearance of Body Fluid Cloudy (Clear); Volume of Body Fluid 20 mL
[2020-05-21 22:36] LABS: Appearance of Body Fluid Cloudy (Clear); Volume of Body Fluid 25 mL
[2020-05-22] MEDS: MethylPREDNISolone 40 MG/ML VIAL IVP SCH ×3 (00:30→17:04)
[2020-05-22] MEDS: MetroNIDAZOLE 500 MG/100 ML 500 MG/100 ML BAG IVPB SCH ×3 (05:49→21:26)
[2020-05-22] MEDS: Cefepime HCl 2,000 MG in Water for inj. (sterile) 20 ML IVP SCH ×3 (05:50→21:22)
[2020-05-22 06:21] LABS: Immature Granulocytes % 0.6 % (0-4); Red Cell Distribution Width 16.9 % (11.5-14.5)
[2020-05-22 06:23] LABS: Basophils % 0.2 %; Hematocrit 29.8 % (35.3-44.9); Immature Platelets 3.5 % (1.1-6.1); Lymphocytes # 0.7 K/mcL (0.6-4.6); Lymphocytes % 12.9 %; Mean Corpuscular HGB Conc 30.2 g/dL (31.6-35.5); Mean Corpuscular Hemoglobin 27.7 pg (28.0-33.3); Mean Corpuscular Volume 91.7 fL (83.0-100.0); Mean Platelet Volume 11.7 fL (9.4-12.4); Monocytes # 0.2 K/mcL (0.0-1.3); Monocytes % 3.2 %; Neutrophils # 4.5 K/mcL (1.6-8.9); Red Blood Count 3.25 M/mcL (3.82-4.97); Segmented Neutrophils % 83.1 %; White Blood Count 5.4 K/mcL (4.3-11.1)
[2020-05-22 06:28] LABS: BUN/Creatinine Ratio 49 (6-26); Blood Urea Nitrogen 21 mg/dL (6-20); Calcium 8.3 mg/dL (8.6-10.3); Carbon Dioxide 21 mEq/L (23-29); Chloride 113 mEq/L (98-107); Glucose 281 mg/dL (70-105); Osmolality,Calculated 311 (280-300); Potassium 3.8 mEq/L (3.5-5.1); Sodium 144 mEq/L (136-145); eGFR For African Americans > 60 (> 60); eGFR For Non-African Americans > 60 (> 60)
[2020-05-22 06:30] LABS: Magnesium 1.5 mg/dL (1.6-2.6)
[2020-05-22 06:32] LABS: Platelet Count 79 K/mcL (140-400)
[2020-05-22 06:54] LABS: Folate 2.6 ng/mL (3.0-16.0)
[2020-05-22] MEDS: Insulin LISPRO 300 UNITS/3 ML VIAL SQ SCH ×4 (08:29→21:22)
[2020-05-22] MEDS: Vancomycin 1,250 MG/262.5 ML IV.SOLN IVPB SCH ×2 (11:15→22:40)
[2020-05-22] MEDS: Loratadine 10 MG TABLET PO SCH (12:41)
[2020-05-22] MEDS: Ascorbic Acid 500 MG TABLET PO SCH (12:41)
[2020-05-22] MEDS: lisinopriL 10 MG TABLET PO SCH (12:41)
[2020-05-22] MEDS: Metoprolol XL (24 HR) Succ 25 MG TAB.ER.24H PO SCH (12:41)
[2020-05-22] MEDS: Nystatin POWDER 30 GM BOTTLE TP SCH ×2 (12:41→16:34)
[2020-05-22] MEDS: Aspirin Enteric Coated 81 MG Tablet PO SCH (12:41)
[2020-05-22] MEDS: Zinc Sulfate 220 MG CAPSULE PO SCH (12:41)
[2020-05-22] MEDS ORDERED: Iron Sucrose Complex 400 MG in 0.9 % Sodium Chloride 250 ML IVPB ONE (23:09)
[2020-05-23] MEDS: Nystatin POWDER 30 GM BOTTLE TP SCH ×4 (01:02→22:15)
[2020-05-23] MEDS: MethylPREDNISolone 40 MG/ML VIAL IVP SCH ×3 (01:07→15:09)
[2020-05-23] MEDS: MetroNIDAZOLE 500 MG/100 ML 500 MG/100 ML BAG IVPB SCH ×2 (06:20→19:18)
[2020-05-23] MEDS: Cefepime HCl 2,000 MG in Water for inj. (sterile) 20 ML IVP SCH ×3 (06:21→22:03)
[2020-05-23] MEDS: Loratadine 10 MG TABLET PO SCH (07:44)
[2020-05-23] MEDS: Metoprolol XL (24 HR) Succ 25 MG TAB.ER.24H PO SCH (07:44)
[2020-05-23] MEDS: Ascorbic Acid 500 MG TABLET PO SCH (07:44)
[2020-05-23] MEDS: Aspirin Enteric Coated 81 MG Tablet PO SCH (07:44)
[2020-05-23] MEDS: lisinopriL 10 MG TABLET PO SCH (07:44)
[2020-05-23] MEDS: Zinc Sulfate 220 MG CAPSULE PO SCH (07:44)
[2020-05-23] MEDS: Insulin LISPRO 300 UNITS/3 ML VIAL SQ SCH ×3 (07:50→16:14)
[2020-05-23] MEDS ORDERED: Folic Acid 1 MG TABLET PO SCH (09:00)
[2020-05-23 09:01] LABS: Hematocrit 27.1 % (35.3-44.9); Hemoglobin 8.5 g/dL (11.5-15.4); Mean Corpuscular HGB Conc 31.4 g/dL (31.6-35.5); Mean Corpuscular Hemoglobin 27.8 pg (28.0-33.3); Mean Corpuscular Volume 88.6 fL (83.0-100.0); Mean Platelet Volume 11.9 fL (9.4-12.4); Red Blood Count 3.06 M/mcL (3.82-4.97); Red Cell Distribution Width 16.7 % (11.5-14.5); White Blood Count 3.6 K/mcL (4.3-11.1)
[2020-05-23 09:03] LABS: Platelet Count 82 K/mcL (140-400)
[2020-05-23 09:15] LABS: Prothrombin Time 22.5 Seconds (9.4-12.1)
[2020-05-23 09:18] LABS: Activated Partial Thrombo Time 26.6 Seconds (26.0-36.0)
[2020-05-23 09:33] LABS: Alanine Aminotransferase 26 Units/L (7-52); Albumin 2.9 g/dL (3.5-5.7); Albumin/Globulin Ratio 1.3 (1.1-2.2); Alkaline Phosphatase 103 Units/L (34-104); Aspartate Amino Transferase 14 Units/L (13-39); BUN/Creatinine Ratio 55 (6-26); Bilirubin,Total 0.6 mg/dL (0.3-1.0); Blood Urea Nitrogen 22 mg/dL (6-20); Calcium 8.5 mg/dL (8.6-10.3); Carbon Dioxide 21 mEq/L (23-29); Chloride 115 mEq/L (98-107); Globulin 2.3 g/dL (2.4-3.5); Glucose 235 mg/dL (70-105); Lactate Dehydrogenase 224 Units/L (140-271); Osmolality,Calculated 311 (280-300); Phosphorous 2.4 mg/dL (2.7-4.5); Potassium 3.4 mEq/L (3.5-5.1); Sodium 145 mEq/L (136-145); Total Protein 5.2 g/dL (6.4-8.9); eGFR For African Americans > 60 (> 60); eGFR For Non-African Americans > 60 (> 60)
[2020-05-23 09:39] LABS: C-Reactive Protein 38 mg/L (Less than 10)
[2020-05-23] MEDS: Vancomycin 1,250 MG/262.5 ML IV.SOLN IVPB SCH (09:45)
[2020-05-23 09:49] LABS: Ferritin 726 ng/mL (10-120)
[2020-05-23] MEDS: Folic Acid 1 MG TABLET PO SCH (15:13)
[2020-05-23] MEDS: metroNIDAZOLE 500 MG TABLET PO SCH ×2 (15:13→22:03)
[2020-05-23] MEDS: Vancomycin 1,500 MG/265 ML IV.SOLN IVPB SCH (19:19)
[2020-05-24] MEDS: MethylPREDNISolone 40 MG/ML VIAL IVP SCH ×2 (00:11→08:50)
[2020-05-24] MEDS: Cefepime HCl 2,000 MG in Water for inj. (sterile) 20 ML IVP SCH (06:52)
[2020-05-24] MEDS ORDERED: 0.9 % Sodium Chloride 500 ML IVC ONE ×2 (08:37→10:31)
[2020-05-24] MEDS ORDERED: 0.9 % Sodium Chloride 500 ML ONE (08:43)
[2020-05-24] MEDS: Insulin LISPRO 300 UNITS/3 ML VIAL SQ SCH ×3 (08:49→18:44)
[2020-05-24] MEDS: Nystatin POWDER 30 GM BOTTLE TP SCH ×3 (08:51→22:37)
[2020-05-24] MEDS: Aspirin Enteric Coated 81 MG Tablet PO SCH (08:51)
[2020-05-24] MEDS: Ascorbic Acid 500 MG TABLET PO SCH (08:51)
[2020-05-24] MEDS: Metoprolol XL (24 HR) Succ 25 MG TAB.ER.24H PO SCH (08:51)
[2020-05-24] MEDS: Multivit/Ca/Min/Fe/FA 1 TAB TABLET PO SCH (08:51)
[2020-05-24] MEDS: metroNIDAZOLE 500 MG TABLET PO SCH (08:51)
[2020-05-24] MEDS: Loratadine 10 MG TABLET PO SCH (08:51)
[2020-05-24] MEDS: Zinc Sulfate 220 MG CAPSULE PO SCH (08:51)
[2020-05-24] MEDS: Folic Acid 1 MG TABLET PO SCH (08:51)
[2020-05-24] MEDS: lisinopriL 10 MG TABLET PO SCH (08:51)
[2020-05-24] MEDS ORDERED: Metoprolol XL (24 HR) Succ 25 MG TAB.ER.24H PO SCH (08:59)
[2020-05-24 09:29] LABS: Influenza A PCR Body Fluid NOT DETECTED; Influenza B PCR Body Fluid NOT DETECTED
[2020-05-24] MEDS ORDERED: Calcium Gluconate 1gm/50mL 1 GM/50 ML BAG IVPB SCH ×2 (09:30→17:00)
[2020-05-24 10:52] LABS: RSV PCR Body Fluid NOT DETECTED; RVP Body Fluid Source NOT PROVIDED
[2020-05-24] MEDS: CeFAZolin 2 GM/120 ML BAG IVPB SCH (15:20)
[2020-05-24] MEDS: Insulin DETEMIR 100 UNIT/ML X5UNITS SQ SCH (15:21)
[2020-05-24 16:07] LABS: Hematocrit 26.9 % (35.3-44.9); Hemoglobin 8.1 g/dL (11.5-15.4); Mean Corpuscular HGB Conc 30.1 g/dL (31.6-35.5); Mean Corpuscular Hemoglobin 28.3 pg (28.0-33.3); Mean Corpuscular Volume 94.1 fL (83.0-100.0); Mean Platelet Volume 12.7 fL (9.4-12.4); Platelet Count 122 K/mcL (140-400); Red Blood Count 2.86 M/mcL (3.82-4.97); Red Cell Distribution Width 17.2 % (11.5-14.5)
[2020-05-24 16:10] LABS: White Blood Count 6.9 K/mcL (4.3-11.1)
[2020-05-24 16:27] LABS: BUN/Creatinine Ratio 73 (6-26); Blood Urea Nitrogen 40 mg/dL (6-20); Calcium 8.1 mg/dL (8.6-10.3); Carbon Dioxide 19 mEq/L (23-29); Chloride 120 mEq/L (98-107); Glucose 300 mg/dL (70-105); Magnesium 1.9 mg/dL (1.6-2.6); Osmolality,Calculated 325 (280-300); Phosphorous 1.8 mg/dL (2.7-4.5); Potassium 3.2 mEq/L (3.5-5.1); Sodium 147 mEq/L (136-145); eGFR For African Americans > 60 (> 60); eGFR For Non-African Americans > 60 (> 60)
[2020-05-24] MEDS ORDERED: levoFLOXacin 750 MG/150 ML 750 MG/150 ML BAG IVPB SCH (16:30)
[2020-05-24] MEDS ORDERED: Ringers Solution, Lactated 1,000 ML IVC SCH (16:30)
[2020-05-24] MEDS ORDERED: Pantoprazole 40 MG VIAL IVP STA (16:51)
[2020-05-24] MEDS ORDERED: Isovue-370 500 ML BOTTLE IVP ONE (17:03)
[2020-05-24 17:49] LABS: Hematocrit 27.2 % (35.3-44.9); Hemoglobin 8.2 g/dL (11.5-15.4); Immature Granulocytes % 0.6 % (0-4); Lymphocytes # 1.3 K/mcL (0.6-4.6); Lymphocytes % 18.5 %; Mean Corpuscular HGB Conc 30.1 g/dL (31.6-35.5); Mean Corpuscular Hemoglobin 27.9 pg (28.0-33.3); Mean Corpuscular Volume 92.5 fL (83.0-100.0); Mean Platelet Volume 12.1 fL (9.4-12.4); Monocytes # 0.6 K/mcL (0.0-1.3); Monocytes % 8.3 %; Neutrophils # 5.1 K/mcL (1.6-8.9); Platelet Count 114 K/mcL (140-400); Red Blood Count 2.94 M/mcL (3.82-4.97); Red Cell Distribution Width 16.9 % (11.5-14.5); Segmented Neutrophils % 72.6 %
[2020-05-24] MEDS ORDERED: Pantoprazole 40 MG VIAL IVP SCH (18:00)
[2020-05-25] MEDS: CeFAZolin 2 GM/120 ML BAG IVPB SCH (02:02)
[2020-05-25] MEDS ORDERED: Vancomycin 1,250 MG/262.5 ML IV.SOLN IVPB SCH ×2 (06:00→08:00)
[2020-05-25] MEDS ORDERED: Norepinephrine 4 MG/254 ML IV.SOLN IVC SCH (06:15)
[2020-05-25] MEDS ORDERED: Cefepime HCl 2,000 MG in Water for inj. (sterile) 20 ML IVP SCH (08:00)
[2020-05-25] MEDS ORDERED: Pantoprazole 40 MG VIAL IVP SCH (09:00)
[2020-05-25 09:47] LABS: INR 2.4; Prothrombin Time 27.4 Seconds (9.4-12.1)
[2020-05-25 09:49] LABS: Activated Partial Thrombo Time 26.8 Seconds (26.0-36.0)
[2020-05-25 09:58] LABS: Hematocrit 21.7 % (35.3-44.9); Hemoglobin 6.6 g/dL (11.5-15.4)
[2020-05-25 10:00] LABS: Mean Platelet Volume 13.1 fL (9.4-12.4); Red Blood Count 2.33 M/mcL (3.82-4.97)
[2020-05-25 10:01] LABS: Hematocrit 21.6 % (35.3-44.9); Hemoglobin 6.6 g/dL (11.5-15.4); Mean Corpuscular HGB Conc 30.6 g/dL (31.6-35.5); Mean Corpuscular Hemoglobin 28.3 pg (28.0-33.3); Mean Corpuscular Volume 92.7 fL (83.0-100.0); Red Cell Distribution Width 17.2 % (11.5-14.5); White Blood Count 11.9 K/mcL (4.3-11.1)
[2020-05-25] MEDS ORDERED: 0.9 % Sodium Chloride 250 ML ONE (10:01)
[2020-05-25] MEDS: Albumin Human 5% 12.5 GM/250 ML IV.SOLN IVC SCH ×2 (10:06→11:01)
[2020-05-25 10:11] LABS: Alanine Aminotransferase 17 Units/L (7-52); Albumin 2.4 g/dL (3.5-5.7); Albumin/Globulin Ratio 1.5 (1.1-2.2); Alkaline Phosphatase 70 Units/L (34-104); Aspartate Amino Transferase 11 Units/L (13-39); BUN/Creatinine Ratio 62 (6-26); Bilirubin,Direct 0.2 mg/dL (0.0-0.2); Bilirubin,Indirect 0.3 mg/dL (0.0-1.0); Bilirubin,Total 0.5 mg/dL (0.3-1.0); Blood Urea Nitrogen 48 mg/dL (6-20); C-Reactive Protein < 5 mg/L (Less than 10); Calcium 8.4 mg/dL (8.6-10.3); Carbon Dioxide 18 mEq/L (23-29); Chloride 121 mEq/L (98-107); Globulin 1.6 g/dL (2.4-3.5); Glucose 331 mg/dL (70-105); Lactate Dehydrogenase 202 Units/L (140-271); Magnesium 2.3 mg/dL (1.6-2.6); Osmolality,Calculated 334 (280-300); Phosphorous 2.3 mg/dL (2.7-4.5); Potassium 3.7 mEq/L (3.5-5.1); Sodium 149 mEq/L (136-145); eGFR For African Americans > 60 (> 60); eGFR For Non-African Americans > 60 (> 60)
[2020-05-25] MEDS: MethylPREDNISolone 40 MG/ML VIAL IVP SCH (10:11)
[2020-05-25] MEDS ORDERED: Norepinephrine 8 MG in 0.9 % Sodium Chloride 250 ML IVC SCH (10:15)
[2020-05-25 10:30] LABS: Ferritin > 1500 ng/mL (10-120)
[2020-05-25] MEDS ORDERED: 0.9 % Sodium Chloride 500 ML ONE (10:57)
[2020-05-25] MEDS: Multivit/Ca/Min/Fe/FA 1 TAB TABLET PO SCH (11:02)
[2020-05-25] MEDS: Nystatin POWDER 30 GM BOTTLE TP SCH (11:02)
[2020-05-25] MEDS: Folic Acid 1 MG TABLET PO SCH (11:02)
[2020-05-25] MEDS: Loratadine 10 MG TABLET PO SCH (11:02)
[2020-05-25] MEDS: Ascorbic Acid 500 MG TABLET PO SCH (11:03)
[2020-05-25] MEDS: Zinc Sulfate 220 MG CAPSULE PO SCH (11:03)
[2020-05-25] MEDS ORDERED: Dexamethasone 4 MG/ML VIAL ONE (11:14)
[2020-05-25] MEDS ORDERED: Ondansetron 4 MG/2 ML VIAL ONE (11:14)
[2020-05-25] MEDS ORDERED: *HR* Succinylcholine 200 MG/10 ML VIAL IVP ONE (11:14)
[2020-05-25] MEDS ORDERED: Lidocaine -MPF 2% 2 ML VIAL ONE (11:14)
[2020-05-25] MEDS ORDERED: *HR* Midazolam HCl 2 MG/2 ML VIAL ONE (11:15)
[2020-05-25] MEDS ORDERED: *HR* FentaNYL (PF) 100 MCG/2 ML VIAL ONE (11:15)
[2020-05-25] MEDS ORDERED: *HR* Propofol 200 MG/20 ML VIAL IVP ONE (11:16)
[2020-05-25] MEDS: Insulin DETEMIR 100 UNIT/ML X5UNITS SQ SCH (11:20)
[2020-05-25] MEDS: Insulin LISPRO 300 UNITS/3 ML VIAL SQ SCH (11:20)
[2020-05-25 12:13] VITALS: BP 113/82
[2020-05-25] MEDS ORDERED: *HR* Vasopressin 20 UNIT/ML VIAL ONE (12:16)
[2020-05-25] MEDS ORDERED: Albumin Human 5% 12.5 GM/250 ML IV.SOLN ONE (12:17)
[2020-05-25] MEDS ORDERED: *HR* Etomidate 40 MG/20 ML VIAL IVP ONE (12:30)
[2020-05-25] MEDS ORDERED: *HR* Atropine Sulfate 1 MG/10 ML SYRINGE IV ONE (23:29)
[2020-05-25] MEDS ORDERED: *HR* EPINEPHrine 1 MG/10 ML SYRINGE IVP ONE (23:29)
== END 2020-05-25 23:30 | disposition expired | DRG 720 ==
LOC: 2NENU 11:07 → EMEROOARM 11:07 → SUATTDRO 19:41 → 2NENU 21:30
PROVIDERS: ADMIT Family Medicine; ATTEND Internal Medicine
PROC: ENDOBRF (2020-05-21 07:45)